=== PATIENT | female | born 1945 | race Caucasian/White ===

== ENCOUNTER 2024-02-17 22:21 | Inpatient (IN) | payer MEDICARE, SELFPAY ==
--- NOTE | ~2024-02-17 | XR_ITS ---
EXAMINATION: XR HUMERUS, LEFT XR FOREARM, LEFT CLINICAL INFORMATION: Fall. COMPARISON: None TECHNIQUE: AP and lateral views of the left humerus. AP and lateral views of the left forearm. Images are somewhat limited due to the inability of the patient to move the arm. FINDINGS: No acute fracture or malalignment is identified at the humerus. Fracture dislocation is evident at the elbow joint with fractures of both the radius and ulna. Distal humerus appears intact. Proximal humerus is normal. Mild glenohumeral and acromioclavicular osteoarthritis. As seen on the forearm images, there is a dislocation at the elbow with proximal displacement of the radial head and ulna relative to the distal humerus. Ossific fragments at the joint likely arises from the ulna and the radial head. Soft tissues are swollen. XR/XR forearm LT 2V IMPRESSION: Fracture dislocation at the elbow joint with proximal displacement of the radial head and ulna relative to the distal humerus.
--- NOTE | ~2024-02-17 | XR_ITS ---
EXAMINATION: XR ELBOW, LEFT CLINICAL INFORMATION: Post reduction COMPARISON: Prior radiographs from 02/17/2024. CT images from 02/18/2024. TECHNIQUE: Lateral view of the left elbow. XR/XR elbow LT 2V FINDINGS AND IMPRESSION: There is a severely comminuted, displaced fracture of the lateral epicondyle with involvement of the capitellum. There was posterolateral displacement of the radius and ulna on the recent CT imaging exam from 02/18/2024 at 8:18 AM. This follow-up lateral view now demonstrate anterior dislocation of the radius and ulna at the unstable elbow. The ossific fragment that projects anterior to the radial head is probably a capitellar fragment. Soft tissues are swollen around the elbow.
--- NOTE | ~2024-02-17 | CT_ITS ---
EXAMINATION: CT head/brain wo IV con CT cervical spine wo IV con INDICATION INFORMATION: fall with head strike COMPARISON: None TECHNIQUE: Separate noncontrast CT examinations of the head and cervical spine were performed. Coronal and sagittal reformats were obtained at the acquisition workstation. This CT examination was performed using dose optimization techniques as appropriate, variously including the following: * Automated exposure control * Adjustment of mA and/or kV according to patient size (this includes techniques or standardized protocols for targeted exams where dose is matched to indication/reason for exam; i.e. extremities or head) * Use of iterative reconstruction technique DLP: 637 mGy-cm FINDINGS: HEAD: There is no evidence of acute intracranial hemorrhage or territorial infarction. Hanson to white matter differentiation is well preserved. No abnormal mass effect or midline shift is seen. No extra-axial fluid collections are identified. No hydrocephalus. Proportional prominence of the ventricles and sulcal spaces is consistent with moderate volume loss. Patchy periventricular and deep white matter hypoattenuation is consistent with moderate small vessel ischemic changes. The cerebellar tonsils are well positioned. No acute osseous or soft tissue abnormality. Mild hyperostosis frontalis interna. Visualized portions of the orbits are unremarkable. Dependent fluid layer in the left maxillary sinus. Small retention cyst in the left ethmoid air cells. Otherwise the remaining visualized paranasal sinuses and mastoid air cells are well-aerated. Small volume cerumen in the right external auditory canal. CERVICAL SPINE: No evidence of acute fracture or traumatic subluxation of the cervical spine. There is straightening of the normal cervical curvature. Mild anterolisthesis of C2 on C3. Vertebral body heights are maintained. There is multilevel intervertebral disc space narrowing with endplate osteophyte formation and facet arthropathy. The atlantoaxial and atlantooccipital articulations are intact. No prevertebral soft tissue swelling. There is no cervical lymphadenopathy. The visualized thyroid gland is unremarkable. The visualized lung apices are clear. CT/CT cervical spine wo IV con IMPRESSION: 1. No acute intracranial pathology. Moderate chronic changes of ischemic microangiopathy and generalized volume loss. 2. No acute osseous abnormality within the cervical spine. Moderate multilevel cervical spondylosis.
--- NOTE | ~2024-02-17 | FL_ITS ---
EXAMINATION: XR FLUOROSCOPY WITH IMAGES CLINICAL INFORMATION: ORIF left elbow; radial and lateral epicondyle fracture/dislocations. COMPARISON: CT elbow dated 02/19/2024; left elbow radiographs dated 02/18/2024. TECHNIQUE: Fluoroscopy Supervised By: Dr. Angel Marcus. Fluoroscopy Time: 0.3. Cumulative Dose: 0.646 mGy. DAP: 0.0112 Gycm2. Images: 5. FINDINGS: The submitted images show application of 2 fixator screws transfixing the dominant fracture of the right capitellum. FL/FL guidance in OR IMPRESSION: Intraoperative fluoroscopic guidance is provided during ORIF of a left elbow fracture/dislocation. Please see the patient's Operative Report for full procedural details.
--- NOTE | ~2024-02-17 | XR_ITS ---
EXAMINATION: XR HUMERUS, LEFT XR FOREARM, LEFT CLINICAL INFORMATION: Fall. COMPARISON: None TECHNIQUE: AP and lateral views of the left humerus. AP and lateral views of the left forearm. Images are somewhat limited due to the inability of the patient to move the arm. FINDINGS: No acute fracture or malalignment is identified at the humerus. Fracture dislocation is evident at the elbow joint with fractures of both the radius and ulna. Distal humerus appears intact. Proximal humerus is normal. Mild glenohumeral and acromioclavicular osteoarthritis. As seen on the forearm images, there is a dislocation at the elbow with proximal displacement of the radial head and ulna relative to the distal humerus. Ossific fragments at the joint likely arises from the ulna and the radial head. Soft tissues are swollen. XR/XR humerus LT IMPRESSION: Fracture dislocation at the elbow joint with proximal displacement of the radial head and ulna relative to the distal humerus.
--- NOTE | ~2024-02-17 | CT_ITS ---
EXAMINATION: CT of the left forearm without contrast INDICATION: Proximal radial fx/dislocation COMPARISON: Radiographs dated 02/17/2024 TECHNIQUE: Multidetector volumetric imaging was obtained through the left elbow without contrast. Multiplanar reformatted images in coronal and sagittal orientations were submitted. This CT examination was performed using dose optimization techniques as appropriate, variously including the following: *Automated exposure control *Adjustment of mA and/or kV according to patient size (this includes techniques or standardized protocols for targeted exams where dose is matched to indication/reason for exam; i.e. extremities or head) *Use of iterative reconstruction technique DLP: 134.12 mGy-cm FINDINGS: The radius and ulna are laterally and proximally dislocated at the elbow. The medial margin of the ulna is impacted into a comminuted fracture at the lateral epicondyles of the distal humerus with marked epicondylar fragmentation. The proximal ulna is largely intact, though a small fracture is possible near the sublime tubercle of the coracoid process which is impacted into the distal humeral fracture. An osseous fragment from the anterolateral margin of the radial head is displaced anteromedially and rotated. This fragment measures 1.7 x 0.9 x 0.9 cm. The proximal radius and proximal ulna remain appropriately aligned relative to each other. Soft tissues are swollen with significant subcutaneous edema. The distal radius and distal ulna appear intact. No appreciable fractures at the level of the wrist. CT/CT forearm LT wo IV con IMPRESSION: Proximal and lateral dislocation of the radius and ulna at the elbow with a comminuted fracture of the lateral epicondyle of the distal humerus and a displaced fracture of the radial head. Possible small fracture at the sublime tubercle of the coracoid process.
--- NOTE | ~2024-02-17 | CT_ITS ---
EXAMINATION: CT of the left elbow without contrast INDICATION: Reason for Exam left elbow fx COMPARISON: CT dated 03-11 TECHNIQUE: Multidetector volumetric imaging was obtained to the left elbow without contrast. Multiplanar reformatted images in coronal and sagittal orientations were submitted. This CT examination was performed using dose optimization techniques as appropriate, variously including the following: *Automated exposure control *Adjustment of mA and/or kV according to patient size (this includes techniques or standardized protocols for targeted exams where dose is matched to indication/reason for exam; i.e. extremities or head) *Use of iterative reconstruction technique DLP: 72 mGy-cm FINDINGS: The radius and ulna remain laterally and proximally dislocated at the elbow. The medial margin of the ulna is impacted into a comminuted fracture at the lateral epicondyle of the distal humerus with marked epicondylar fragmentation. The proximal ulna is largely intact, though a small fracture of the coronoid process remains possible where it is impacted into the humerus. An osseous fragment from the anterolateral margin of the radial head remains displaced anteromedially and rotated. The proximal radius and proximal ulna remain appropriately aligned relative to each other. Soft tissues are swollen with significant subcutaneous edema. The distal radius and distal ulna appear intact. No appreciable fractures at the level of the wrist. CT/CT elbow LT wo IV con IMPRESSION: Unchanged proximal and lateral dislocation of the radius and ulna at the elbow with comminution of the lateral epicondyle of the distal humerus and a displaced fracture of the radial head.
[2024-02-17 22:31] VITALS: BP 160/80; PULSE 58; O2SAT 100
[2024-02-17 22:39] VITALS: BP 161/69; PULSE 67; RESP 16; TEMP 36.6; BMI 26.2
--- NOTE | 2024-02-17 22:43 | ECG_ITS ---
Test Reason : FALL Blood Pressure : / mmHG Vent. Rate : 065 BPM Atrial Rate : 065 BPM P-R Int : 138 ms QRS Dur : 086 ms QT Int : 422 ms P-R-T Axes : 058 -49 041 degrees QTc Int : 438 ms Normal sinus rhythm Left axis deviation Abnormal ECG No previous ECGs available Referred By: Generic ED Physician Electronically Signed By:TOM PLATT
[2024-02-17 22:57] LABS: Glucose, Whole Blood 164 mg/dL (60-115)
--- NOTE | 2024-02-17 23:00 | PC.NURSE ---
care assumed of patient by this RN at this time.
[2024-02-18] VITALS (16 sets, daily range): BP systolic 116–158; BP diastolic 50–85; PULSE 61–83; RESP 14–20; TEMP 36.8–37.7; O2SAT 94–99
[2024-02-18 00:22] LABS: MANUAL DIFF FLAG NO
[2024-02-18 00:26] LABS: Basophils Absolute Auto 0.1 X10*3/uL (0.0-0.2); Basophils Percent Auto 0.3 % (0-2); Eosinophils Absolute Auto 0.1 X10*3/uL (0.0-0.4); Eosinophils Percent Auto 0.8 % (0-4); Hematocrit 42.5 % (37.0-47.0); Hemoglobin 14.6 g/dl (12.0-16.0); Imm Gran Abs Auto 0.05 X10*3/uL (0.00-0.03); Imm Gran Pct Auto 0.3 % (0.0-0.4); Lymphocytes Absolute Auto 1.5 X10*3/uL (1.2-4.9); Lymphocytes Percent Auto 10.7 % (20-40); Mean Corpuscular HGB Conc 34.4 g/dl (31.0-35.0); Mean Corpuscular Hemoglobin 30.7 pg (27.0-33.0); Mean Corpuscular Volume 89.3 fL (80.0-98.0); Monocytes Percent Auto 6.9 % (2-11); Neutrophils Absolute Auto 11.7 x10*3/uL (2.0-8.3); Platelet Count 217 X10*3/uL (160-400); Red Blood Count 4.76 X10*6/uL (4.20-5.50); Red Cell Distribution Width 11.9 % (11.0-16.0); White Blood Count 14.4 X10*3/uL (4.8-10.8)
[2024-02-18 00:48] LABS: Anion Gap 17 (12-20); Blood Urea Nitrogen 21 mg/dL (9-16); Calcium 9.9 mg/dL (8.4-10.2); Carbon Dioxide 23 mmol/L (22-29); Chloride 102 mmol/L (96-108); Creatinine Clr Calc Pharmacy 40.1; Estimated Glomerular Filt Rate 53; Glucose Random 190 mg/dL (60-115); Potassium 4.1 mmol/L (3.3-5.1); Sodium 138 mmol/L (135-145)
[2024-02-18 00:56] LABS: Troponin-I High Sensitivity < 2.7 ng/L (<3.5-17.0)
[2024-02-18 07:45] LABS: Alanine Aminotransferase 14 U/L (0-31); Albumin Level 4.3 g/dL (3.5-5.0); Alkaline Phosphatase 71 U/L (39-117); Aspartate Amino Transferase 16 U/L (5-31); Bilirubin Direct 0.2 mg/dL (0.0-0.5); Bilirubin Total 0.5 mg/dL (0.0-1.0); Total Protein 7.1 g/dL (6.5-8.0)
--- NOTE | 2024-02-18 08:01 | ED_ITS ---
HPI - General Adult General Chief complaint: Fall Stated complaint: found outside, COA x2, baseline dementia Time Seen by Provider: 02/18/24 06:42 Source: patient and family Mode of arrival: EMS Limitations: no limitations History of Present Illness HPI narrative: Patient is an 79-year-old female who presents emergency department via EMS for evaluation. Syed's outside of her home called EMS as she was found to be lying on the ground. Unknown down time. Daughter is at bedside; Rachel. She reports that patient lives alone, she saw her mother at approximately 17:00 yesterday evening. She has a history of dementia but has been living alone and typically Fares pretty well with some minor assistance for ADLs. She does admit that her confusion has been slowly progressing over some time, denies sudden increase in confusion. Upon EMS arrival to patient she was unable to provide any meaningful history but she was complaining of pain to the left arm. At the time of my evaluation she denies any pain when asked, she is oriented to person disoriented to place time and event, she is able to follow some commands, after asked 2-3 times. Related Data Home Medications ?Medication ?Instructions ?Recorded ?Confirmed atorvastatin 20 mg tablet 20 mg PO DAILY 02/18/24 ciclopirox 0.77 % topical cream 1 appl topical BID 02/18/24 donepezil 10 mg tablet 10 mg PO BEDTIME 02/18/24 loratadine 10 mg tablet 10 mg PO DAILY 02/18/24 memantine 21 mg capsule 21 mg PO DAILY 02/18/24 sprinkle,extended release 24hr metformin 500 mg tablet,extended 1,500 mg PO DAILY@1800 02/18/24 release 24 hr multivitamin 1 tab PO DAILY 02/18/24 valsartan 80 mg tablet 80 mg PO DAILY 02/18/24 Allergies Allergy/AdvReac Type Severity Reaction Status Date / Time No Known Allergies Allergy Verified 02/17/24 22:42 Review of Systems 2 Review of Systems: Yes Unobtainable due to mental status PMFSH Past Medical History Attestation statement: The following information was validated with the patient. Source: old records reviewed Social History Social History Smoked in Last 30 Days: No Use of substances other than those prescribed or required for medical reasons: No Advance Directives: Yes Advance Directives on File: Yes Advance Directives Date on File: 02/17/24 Do you have a plan to hurt others: No Plan Physical Exam ED Vital Signs: Vital Signs - 24 hr 02/17/24 22:39 02/18/24 02:21 02/18/24 06:23 Temperature 97.9 F 99.0 F 98.4 F Pulse Rate 67 83 74 Respiratory Rate 16 16 17 Blood Pressure 161/69 H 151/61 H 140/51 H Pulse Oximetry 98 97 Oxygen Delivery Method Room Air Room Air 02/18/24 08:22 02/18/24 08:22 02/18/24 10:11 Temperature 98.3 F 98.3 F Pulse Rate 69 67 Respiratory Rate 20 20 14 Blood Pressure 134/58 L 134/58 L Pulse Oximetry 94 Oxygen Delivery Method Room Air 02/18/24 10:14 02/18/24 11:15 02/18/24 12:38 Temperature Pulse Rate 71 74 Respiratory Rate 14 14 18 Blood Pressure 155/58 H 156/65 H Pulse Oximetry 99 95 Oxygen Delivery Method Room Air Room Air 02/18/24 13:23 02/18/24 13:34 02/18/24 13:40 Temperature 98.7 F 98.7 F Pulse Rate 69 64 83 Respiratory Rate 16 18 16 Blood Pressure 146/55 H 158/67 H 153/59 H Pulse Oximetry 95 98 96 Oxygen Delivery Method 02/18/24 13:56 02/18/24 13:59 02/18/24 14:00 Temperature 98.3 F 98.3 F Pulse Rate 70 61 61 Respiratory Rate 16 18 18 Blood Pressure 158/67 H 145/57 H 145/57 H Pulse Oximetry 94 95 95 Oxygen Delivery Method Room Air 02/18/24 15:18 Temperature Pulse Rate 61 Respiratory Rate 18 Blood Pressure 133/53 L Pulse Oximetry 97 Oxygen Delivery Method Room Air BMI result Body Mass Index 26.2 Appearance: Alert.?Oriented to person, disoriented to place and time. No acute distress.?Normal affect. Head: Normocephalic Eyes: Pupils equal, round and reactive to light.? EOMI. No nystagmus. Left medial periorbital ecchymosis no palpable step-offs or deformities of the orbit. ENT: Pharynx normal.??No fracture or loose dentition. Ecchymosis and swelling to the left lower lip Neck: Normal inspection.? Neck supple.?? CVS: Heart sounds normal. Normal heart rate and rhythm.? Pulses normal.?? Respiratory: No respiratory distress.? Lung sounds clear to auscultation bilaterally?? Abdomen: Soft and non-tender. Normoactive bowel sounds. No pulsatile mass.?? Skin: Skin warm and dry.? Normal skin color.? Erythema and warmth to the right forearm without open wounds lesion or rash. Nontender upon palpation. Extremities: No lower extremity edema.? Ecchymosis to left elbow. 2+ radial pulse bilaterally. Neuro: Moves all extremities spontaneously. Sensation intact bilaterally. No focal neuro deficits. Course Reevaluation(s) Reevaluation #1: Patient unable to tolerate manual reduction despite pain management. Reviewed this case with ED attending Dr. Stewart, feel that patient will require procedural sedation for reduction. He agrees with plan of care Time: 10:36 Reevaluation #2: Procedural sedation with propofol as per procedure note. Post reduction films were obtained which reveals an anterior dislocation of the radius and ulna. She was placed in a posterior splint and a sling was applied. Reviewed the post procedural films with Dr. Stewart, who recommends admission for further orthopedic intervention, spoke with hospitalist service Delon Boss PA to bedside for admission of patient, pending orthopedic surgical intervention. Family at bedside updated on plan of care and are agreeable for admission. Medications Administered Discontinued Medications Generic Name Dose Route Start Last Admin Trade Name Freq PRN Reason Stop Dose Admin Morphine Sulfate 4 mg 02/18/24 10:02 02/18/24 10:11 Morphine Sulfate 4 Mg/Ml Cartridge IM 02/18/24 10:03 4 mg ONCE ONE Administration Protocol Propofol 100 mg 02/18/24 10:34 02/18/24 13:25 Propofol 200 Mg/20 Ml Vial IVPUSH 02/18/24 10:35 50 mg ONCE ONE Administration Procedures Orthopedic Fracture Reduction Fracture #1: Time Out Performed: Yes Side: left Fracture Reduction Location: humerus, radius and ulna Analgesia: procedural sedation Technique: direct manipulation and traction/counter-traction Post Reduction X-rays Demonstrate: anatomical reduction Post-reduction neuro exam: intact Post-reduction vascular exam: intact Splint Applied: Yes Patient Tolerated Procedure: well Orthopedic Joint Reduction Joint #1: Time Out Performed: Yes Side: left Joint Reduction Location: elbow Analgesia: procedural sedation Technique used: traction/counter-traction and direct manipulation Post-reduction neuro exam: intact Post-reduction vascular: intact Post Reduction X-Ray Obtained: Yes Post Reduction X-Ray Results: other (Anterior dislocation of the radius and ulna, reviewed case with orthopedics) Splint Applied: Yes (Posterior splint) Patient Tolerated Procedure: well Procedural Sedation Indication: fracture/dislocation reduction ASA Class: I Mallampati Class: I Time of Last PO Intake: 05:00 Preparation: hall monitor applied, pulse oximeter, capnometry used, supplemental O2 applied, suction/airway equipment at bedside and IV secured IV Propofol dose (mg): 50 Patient Tolerated Procedure: well Complications: none Medical Decision Making Medical Decision Making [facility] Narrative: Daughter reports it is atypical for her to wander out of the home and typically is quite steady on her feet. The etiology of her fall is unclear, ? Syncope versus mechanical nature. She is unable to provide meaningful history surrounding the events. EKG reveals normal sinus rhythm with ventricular rate of 65, QTC of 438, no ST elevation, no ST depression. CT of the head is without acute intracranial pathology, CT of the cervical spine without fracture subluxation. Initially citing left arm pain, noted to have ecchymosis to the elbow, extremity is neurovascularly intact distally, XR reveals fracture dislocation of the left elbow joint of the proximal radius and ulna with proximal displacement of the radial head, I reviewed these images with orthopedics; Benny GIVENS, who recommend reduction and obtaining a CT scan for further evaluation. Right forearm noted to have erythema and warmth no tenderness upon palpation, daughter reports that she noticed some mild redness yesterday, she stated she was unsure whether patient had been outside and possibly got a sunburn, she denies any recent lab draws or IV placement to the arm prior to noticing it. Concern for possible sun exposure versus cellulitis, full range of motion and no tenderness upon palpation, I do not suspect acute osseous abnormality. Differential Diagnosis Differential Diagnoses: The differential diagnosis associated with the presentation includes (Syncope, presyncope, mechanical fall, fracture, dislocation, ICH, SDH) Admission/Observation Consideration of admission/observation: Escalation of care including admission/observation considered Consult Healthcare Provider Management of the patient was discussed with: Dairy Grazer (Orthopedics, see narrative above) Lab Data [facility] Lab Attestation statement: I reviewed the patient's lab results. CBC reveals leukocytosis 14.4, no anemia, no thrombocytopenia. No electrolyte derangement. BUN is mildly elevated at 21, suspect this is likely secondary to mild dehydration in the setting of her dementia. Non-anion gap hyperglycemia glucose 190. High sensitive troponin below detectable limits. CK within normal range no evidence of rhabdo. 02/18/24 00:18 02/18/24 00:04 Labs: Lab Results 02/17/24 02/18/24 02/18/24 Range/Units 22:53 00:04 00:18 WBC 14.4 H (4.8-10.8) X10*3/uL RBC 4.76 (4.20-5.50) X10*6/uL Hgb 14.6 (12.0-16.0) g/dl Hct 42.5 (37.0-47.0) % MCV 89.3 (80.0-98.0) fL MCH 30.7 (27.0-33.0) pg MCHC 34.4 (31.0-35.0) g/dl RDW 11.9 (11.0-16.0) % Plt Count 217 (160-400) X10*3/uL MPV 9.0 L (9.4-12.3) fL Immature Gran % (Auto) 0.3 (0.0-0.4) % Neut % (Auto) 81.0 H (45-73) % Lymph % (Auto) 10.7 L (20-40) % Brooke % (Auto) 6.9 (2-11) % Eos % (Auto) 0.8 (0-4) % Baso % (Auto) 0.3 (0-2) % Lymph # (Auto) 1.5 (1.2-4.9) X10*3/uL Brooke # (Auto) 1.0 (0.1-1.2) X10*3/uL Eos # (Auto) 0.1 (0.0-0.4) X10*3/uL Baso # (Auto) 0.1 (0.0-0.2) X10*3/uL Abs Immat Gran (auto) 0.05 H (0.00-0.03) X10*3/uL Absolute Neuts (auto) 11.7 H (2.0-8.3) x10*3/uL Absolute Nucleated RBC 0.000 (0.0-0.012) X10*3/uL Nucleated RBC % (auto) 0.0 (0.0-0.2) /100WBC Sodium 138 (135-145) mmol/L Potassium 4.1 (3.3-5.1) mmol/L Chloride 102 (96-108) mmol/L Carbon Dioxide 23 (22-29) mmol/L Anion Gap 17 (12-20) BUN 21 H (9-16) mg/dL Creatinine 1.01 (0.5-1.4) mg/dL Estim Creat Clear Calc 40.1 Estimated GFR 53 POC Glucose 164 H (60-115) mg/dL Random Glucose 190 H (60-115) mg/dL Calcium 9.9 (8.4-10.2) mg/dL Total Bilirubin 0.5 (0.0-1.0) mg/dL Direct Bilirubin 0.2 (0.0-0.5) mg/dL AST 16 (5-31) U/L ALT 14 (0-31) U/L Alkaline Phosphatase 71 (39-117) U/L Total Creatine Kinase 78 (26-140) U/L Troponin I High Sens < 2.7 (<3.5-17.0) ng/L Total Protein 7.1 (6.5-8.0) g/dL Albumin 4.3 (3.5-5.0) g/dL Urine Color Urine Appearance Urine pH (5.0-9.0) Ur Specific Pelzer (1.005-1.025) Urine Protein (Neg-Trace) mg/dL Urine Glucose (UA) (Negative) mg/dL Urine Ketones (Negative) mg/dL Urine Blood (Negative) Urine Nitrite (Negative) Ur Leukocyte Esterase (Negative) Urine RBC (0-2) /HPF Urine WBC (0-5) /HPF Ur Squamous Epith Cells (0-2) /HPF Urine Bacteria (None Seen) Hyaline Casts (0-2) /LPF 02/18/24 Range/Units 15:13 WBC (4.8-10.8) X10*3/uL RBC (4.20-5.50) X10*6/uL Hgb (12.0-16.0) g/dl Hct (37.0-47.0) % MCV (80.0-98.0) fL MCH (27.0-33.0) pg MCHC (31.0-35.0) g/dl RDW (11.0-16.0) % Plt Count (160-400) X10*3/uL MPV (9.4-12.3) fL Immature Gran % (Auto) (0.0-0.4) % Neut % (Auto) (45-73) % Lymph % (Auto) (20-40) % Brooke % (Auto) (2-11) % Eos % (Auto) (0-4) % Baso % (Auto) (0-2) % Lymph # (Auto) (1.2-4.9) X10*3/uL Brooke # (Auto) (0.1-1.2) X10*3/uL Eos # (Auto) (0.0-0.4) X10*3/uL Baso # (Auto) (0.0-0.2) X10*3/uL Abs Immat Gran (auto) (0.00-0.03) X10*3/uL Absolute Neuts (auto) (2.0-8.3) x10*3/uL Absolute Nucleated RBC (0.0-0.012) X10*3/uL Nucleated RBC % (auto) (0.0-0.2) /100WBC Sodium (135-145) mmol/L Potassium (3.3-5.1) mmol/L Chloride (96-108) mmol/L Carbon Dioxide (22-29) mmol/L Anion Gap (12-20) BUN (9-16) mg/dL Creatinine (0.5-1.4) mg/dL Estim Creat Clear Calc Estimated GFR POC Glucose (60-115) mg/dL Random Glucose (60-115) mg/dL Calcium (8.4-10.2) mg/dL Total Bilirubin (0.0-1.0) mg/dL Direct Bilirubin (0.0-0.5) mg/dL AST (5-31) U/L ALT (0-31) U/L Alkaline Phosphatase (39-117) U/L Total Creatine Kinase (26-140) U/L Troponin I High Sens (<3.5-17.0) ng/L Total Protein (6.5-8.0) g/dL Albumin (3.5-5.0) g/dL Urine Color Yellow Urine Appearance Clear Urine pH 7.0 (5.0-9.0) Ur Specific Pelzer 1.015 (1.005-1.025) Urine Protein Negative (Neg-Trace) mg/dL Urine Glucose (UA) Negative (Negative) mg/dL Urine Ketones Negative (Negative) mg/dL Urine Blood Negative (Negative) Urine Nitrite Negative (Negative) Ur Leukocyte Esterase Small (1+) H (Negative) Urine RBC 0-2 (0-2) /HPF Urine WBC 0-5 (0-5) /HPF Ur Squamous Epith Cells 0-2 (0-2) /HPF Urine Bacteria None Seen (None Seen) Hyaline Casts 0-2 (0-2) /LPF Independent Interpretation I performed an independent interpretation of an: EKG (See narrative above), Plain X-Ray (Proximal radial fracture) and CT Scan (No ICH) Radiology Impression Discussion of test interpretation with radiology: I have reviewed the radiologist's reading. Radiologist Impression: CT/CT head/brain wo IV con IMPRESSION: 1. No acute intracranial pathology. Moderate chronic changes of ischemic microangiopathy and generalized volume loss. 2. No acute osseous abnormality within the cervical spine. Moderate multilevel cervical spondylosis. XR/XR forearm LT 2V IMPRESSION: Fracture dislocation at the elbow joint with proximal displacement of the radial head and ulna relative to the distal humerus. CT/CT forearm LT wo IV con IMPRESSION: Proximal and lateral dislocation of the radius and ulna at the elbow with a comminuted fracture of the lateral epicondyle of the distal humerus and a displaced fracture of the radial head. Possible small fracture at the sublime tubercle of the coracoid process. XR/XR elbow LT 2V FINDINGS AND IMPRESSION: There is a severely comminuted, displaced fracture of the lateral epicondyle with involvement of the capitellum. There was posterolateral displacement of the radius and ulna on the recent CT imaging exam from 02/18/2024 at 8:18 AM. This follow-up lateral view now demonstrate anterior dislocation of the radius and ulna at the unstable elbow. The ossific fragment that projects anterior to the radial head is probably a capitellar fragment. Soft tissues are swollen around the elbow. Independent Historian Clinical information obtained from an independent historian. History obtained from or confirmed by: Other (Daughter as per HPI) Prescription Management I considered prescription management with: Pain Medication Critical Care Time Critical Care Time Critical Care Time: Yes Total Critical Care Time: 75 Attestation: I personally attest to this critical care time spent taking care of the patient exclusive of all other billable procedures was approximately 75 minutes including initial evaluation of patient, ordering tests, x-ray interpretation, EKG interpretation, procedural sedation and fracture/dislocation reduction medical consultation, documentation, re-evaluation. Discharge Plan Discharge Clinical Impression: Elbow fracture, left, Dementia, Unwitnessed fall Patient Disposition: Admitted As Inpatient
[2024-02-18] MEDS: Morphine Sulfate 4 MG/ML CARTRIDGE IM (10:11)
--- NOTE | 2024-02-18 10:14 | PC.NURSE ---
pt sleeping, awakens easily to verbal stimuli. left arm pain w/ slight movement. patient premedicated w/ IM morphine as ordered prior to left arm fx splint placement by PROGRESSIVE CARE NURSE
--- NOTE | 2024-02-18 13:18 | MHC.EDTECH ---
This pct attempted ortho static vitals on patient, The nurse responsible for this patient said patient is in alot of pain and unable to complete orthos at this time, will attempt at later time. Provider aware.
[2024-02-18] MEDS: propofoL 200 MG/20 ML VIAL 100 MG IVPUSH (13:25)
[2024-02-18 15:25] LABS: Appearance Urine Clear; Color Urine Yellow; Glucose Urine UA Negative (Negative); Leukocyte Esterase Urine Small (1+) (Negative); Nitrite Urine Negative (Negative); Specific Gravity - Urine 1.015 (1.005-1.025); UMIC TRIGGER UACC YES; Urine Blood Negative (Negative); Urine Ketones Negative (Negative); Urine Protein Negative (Neg-Trace)
--- NOTE | 2024-02-18 15:30 | P.HPHOSP_ITS ---
<Statement entered by Yvan Smith MD - 02/19/24 14:20> the patient was seen and evaluated with CHON Kitchen. I agree with her note, assessment and plan with the following. History of Present Illness Date of Service: 02/18/24 Attending physician on admission: Yvan Smith Chief Complaint: fall This is an 79-year-old female with history of dementia who was brought to the emergency department after being found outside of her home on the ground. History was primarily obtained from her son at the bedside. Patient was last seen around 17:00 on the day prior to admission. Around 930 in the morning on the day of admission family got a phone call by the police at 09:30 saying that she was found on the ground. She is unable to provide any history due to her history of dementia. In the emergency department she was noted to have abnormality of her left arm, imaging was consistent with proximal and lateral dislocation of the radius and ulna at the elbow with comminuted fracture of the lateral epicondyle of the distal humerus and a displaced fracture of the radial head. This was reduced in the emergency department. Orthopedic surgery recommends surgical intervention in the coming days. Per family patient has been in her usual state of health, eating and drinking okay. She lives alone but is dependent for all of her ADLs. The patient has no specific complaints at this time. She received a dose of IV morphine for pain control and will be admitted to the hospital for further management. Review of Systems 2 Review of Systems: Yes all other systems are reviewed and are negative Constitutional: Constitutional: Denies chills and Denies fever(s) ENT: Denies dizziness Cardiovascular: Cardiovascular: Denies chest pain Gastrointestinal: Gastrointestinal: Denies abdominal pain Neurologic: Denies dizziness PMF Social History Smoked in Last 30 Days: No Use of substances other than those prescribed or required for medical reasons: No Advance Directives: Yes Advance Directives on File: Yes Advance Directives Date on File: 02/17/24 Do you have a plan to hurt others: No Plan Meds Allergies Allergy/AdvReac Type Severity Reaction Status Date / Time No Known Allergies Allergy Verified 02/17/24 22:42 Active Medications: Current Medications Acetaminophen (Acetaminophen 325 Mg Tablet) 650 mg PO Q6H PRN PRN Reason: Pain, Mild (Pain Scale 1-3) Ondansetron HCl (Ondansetron Hcl 4 Mg/2 Ml Vial) 4 mg IVPUSH Q8H PRN PRN Reason: Nausea and Vomiting Oxycodone HCl (Oxycodone Hcl Immed Release 5 Mg Tablet) 5 mg PO Q6H PRN PRN Reason: Pain, Moderate(Pain Scale 4-6) Sodium Chloride (0.9 % Sodium Chloride Flush 3 Ml Syringe) [facility]ations ?Medication ?Instructions ?Recorded ?Confirmed ?Last Taken ?Type atorvastatin 20 mg tablet 20 mg PO DAILY 02/18/24 Unknown History ciclopirox 0.77 % topical cream 1 appl topical BID 02/18/24 Unknown History donepezil 10 mg tablet 10 mg PO BEDTIME 02/18/24 Unknown History loratadine 10 mg tablet 10 mg PO DAILY 02/18/24 Unknown History memantine 21 mg capsule 21 mg PO DAILY 02/18/24 Unknown History sprinkle,extended release 24hr metformin 500 mg tablet,extended 1,500 mg PO DAILY@1800 02/18/24 Unknown History release 24 hr multivitamin 1 tab PO DAILY 02/18/24 Unknown History valsartan 80 mg tablet 80 mg PO DAILY 02/18/24 Unknown History Physical Exam 2 Vital Signs and Narrative: Vital Signs: Last Vital Signs Temp 98.3 F 02/18/24 14:00 Pulse 61 02/18/24 15:18 Resp 18 02/18/24 15:18 BP 133/53 L 02/18/24 15:18 Pulse Ox 97 02/18/24 15:18 O2 Del Method Room Air 02/18/24 15:18 BMI result Body Mass Index 26.2 Const: Other: Constitutional-patient observed sitting up in bed, she is awake, alert and in no acute distress. She is oriented to person only (this is her baseline per her son) Cardiovascular regular rate and rhythm Pulmonary-breathing easy no respiratory distress, no accessory muscle use GI abdomen is soft, nontender, nondistended Musculoskeletal-left upper extremity in cast and sling; able to move bilateral lower extremities and right upper extremity freely Neuro-cranial nerves 2-12 are grossly intact there are no focal neurological deficits appreciated Results Labs 02/18/24 00:18 02/18/24 00:04 Labs: Laboratory Results - last 24 hr 02/17/24 02/18/24 02/18/24 22:53 00:04 00:18 MCV 89.3 MCH 30.7 MCHC 34.4 RDW 11.9 Plt Count 217 MPV 9.0 L Immature Gran % (Auto) 0.3 Neut % (Auto) 81.0 H Lymph % (Auto) 10.7 L [place] % (Auto) 6.9 Eos % (Auto) 0.8 Baso % (Auto) 0.3 Lymph # (Auto) 1.5 [place] # (Auto) 1.0 Eos # (Auto) 0.1 Baso # (Auto) 0.1 Abs Immat Gran (auto) 0.05 H Absolute Neuts (auto) 11.7 H Absolute Nucleated RBC 0.000 Nucleated RBC % (auto) 0.0 Anion Gap 17 Estim Creat Clear Calc 40.1 Estimated GFR 53 POC Glucose 164 H Random Glucose 190 H Calcium 9.9 Total Bilirubin 0.5 Direct Bilirubin 0.2 AST 16 ALT 14 Alkaline Phosphatase 71 Total Creatine Kinase 78 Troponin I High Sens < 2.7 Total Protein 7.1 Albumin 4.3 Urine Color Urine Appearance Urine pH Ur Specific [place] Urine Protein Urine Glucose (UA) Urine Ketones Urine Blood Urine Nitrite Ur Leukocyte Esterase 02/18/24 15:13 MCV MCH MCHC RDW Plt Count MPV Immature Gran % (Auto) Neut % (Auto) Lymph % (Auto) [place] % (Auto) Eos % (Auto) Baso % (Auto) Lymph # (Auto) [place] # (Auto) Eos # (Auto) Baso # (Auto) Abs Immat Gran (auto) Absolute Neuts (auto) Absolute Nucleated RBC Nucleated RBC % (auto) Anion Gap Estim Creat Clear Calc Estimated GFR POC Glucose Random Glucose Calcium Total Bilirubin Direct Bilirubin AST ALT Alkaline Phosphatase Total Creatine Kinase Troponin I High Sens Total Protein Albumin Urine Color Yellow Urine Appearance Clear Urine pH 7.0 Ur Specific [place] 1.015 Urine Protein Negative Urine Glucose (UA) Negative Urine Ketones Negative Urine Blood Negative Urine Nitrite Negative Ur Leukocyte Esterase Small (1+) H Imaging Radiologist's Impressions: Impressions Forearm X-Ray 02/17/24 23:08 IMPRESSION: Fracture dislocation at the elbow joint with proximal displacement of the radial head and ulna relative to the distal humerus. Humerus X-Ray 02/17/24 23:08 IMPRESSION: Fracture dislocation at the elbow joint with proximal displacement of the radial head and ulna relative to the distal humerus. Cervical Spine CT 02/17/24 23:45 IMPRESSION: 1. No acute intracranial pathology. Moderate chronic changes of ischemic microangiopathy and generalized volume loss. 2. No acute osseous abnormality within the cervical spine. Moderate multilevel cervical spondylosis. Head CT 02/17/24 23:45 IMPRESSION: 1. No acute intracranial pathology. Moderate chronic changes of ischemic microangiopathy and generalized volume loss. 2. No acute osseous abnormality within the cervical spine. Moderate multilevel cervical spondylosis. Forearm CT 02/18/24 08:40 IMPRESSION: Proximal and lateral dislocation of the radius and ulna at the elbow with a comminuted fracture of the lateral epicondyle of the distal humerus and a displaced fracture of the radial head. Possible small fracture at the sublime tubercle of the coracoid process. Elbow X-Ray 02/18/24 13:40 FINDINGS AND IMPRESSION: There is a severely comminuted, displaced fracture of the lateral epicondyle with involvement of the capitellum. There was posterolateral displacement of the radius and ulna on the recent CT imaging exam from 02/18/2024 at 8:18 AM. This follow-up lateral view now demonstrate anterior dislocation of the radius and ulna at the unstable elbow. The ossific fragment that projects anterior to the radial head is probably a capitellar fragment. Soft tissues are swollen around the elbow. Assessment and Plan (1) Dementia: Status: Acute (2) Unwitnessed fall: Status: Acute Plan This is an 79-year-old female with history of Alzheimer's dementia, diabetes, high blood pressure, cholesterol who was brought to the emergency department after she was found outside her home lying on the ground and found to have proximal and lateral dislocation of the radius and ulna at the elbow with a comminuted fracture of the lateral epicondyle of the distal humerus and displaced fracture of the radial head Left elbow fracture Reduced in the ED Will need surgery, likely on Monday or Monday Orthopedic consult Pain management; bowel regimen Unwitnessed fall Likely mechanical but can not rule out syncope Will monitor on telemetry Leukocytosis Likely reactive secondary to fracture/fall Patient afebrile, no evidence of infection Type 2 diabetes Hold metformin Diabetic diet Follow POCs, insulin sliding scale as needed Hypertension Continue valsartan when med rec done HLD continue statin when med rec done Alzheimer's dementia continue donepezil memantine unclear if patient still taking awaiting clarification from family med rec pending at the time of admission DVT prophylaxis-as surgery is not planned for few days will start subcutaneous Lovenox Code status-DNR/DNI per family at the bedside Disposition-likely rehab. Will need PT evaluation after surgery Patient will likely require 2 midnight in the hospital due to fall, syncope evaluation, specialist evaluation and surgery for complex fracture Quality Stroke Does the patient have a stroke diagnosis?: No VTE Prior VTE?: No VTE Risk Level:: Medical - moderate - high VTE Device Contraindication: N/A - Device Ordered VTE Drug Contraindication: N/A - Med Ordered
[2024-02-18 15:40] LABS: Bacteria Urine None Seen (None Seen); Hyaline Casts Urine 0-2 /LPF (0-2); RBC Urine 0-2 /HPF (0-2); Squamous Epithelial Cell Urine 0-2 /HPF (0-2); UACC Culture Trigger YES; WBC Urine 0-5 /HPF (0-5)
--- NOTE | 2024-02-18 17:47 | PHA.MEDREC ---
Pharmacy Consult ? Medication Reconciliation Pharmacy has completed the medication reconciliation. MED REC COMPLETE USING LIST PROVIDED BY FAMILY AND CLAIM HISTORY. ATTEMPTED TO REACH FAMILY SEVERAL TIMES TO CLARIFY IF PATIENT IS ON CICLOPIROX CREAM (ON CLAIM HISTORY BUT NOT LIST) AND ALSO MEMANTINE (28 MG ON LIST AND 21 MG ON CLAIM HISTORY). LEFT MESSAGE WITH ASHLEY [phone].
[2024-02-18 17:51] LABS: Glucose, Whole Blood 195 mg/dL (60-115)
[2024-02-18] MEDS: Insulin Lispro 100 UNIT/ML 3 ML VIAL SUBCUT ×2 (18:29→21:25)
[2024-02-18] MEDS: Enoxaparin Sodium 40 MG/0.4 ML SYRINGE SUBCUT (18:29)
[2024-02-18] MEDS: 0.9 % Sodium Chloride Flush 3 ML SYRINGE IVFLUSH (18:31)
--- NOTE | 2024-02-18 19:35 | PC.NURSE ---
this rn assumed care of pt, pt sitting up in stretcher eating dinner. pt alert to self at this time, unable to say where she is or what year it is. pt able to state name and date of . vss.
[2024-02-18 21:19] LABS: Glucose, Whole Blood 267 mg/dL (60-115)
[2024-02-18] MEDS: Docusate Sodium 100 MG CAPSULE PO (21:25)
--- NOTE | 2024-02-18 21:34 | MHC.EDTECH ---
Pt cleaned, dried, repositioned, new pure wick in place, rn aware that pt was pulling on the wrap part of the cast
[2024-02-19 01:08] VITALS: BP 153/69; PULSE 80; RESP 18; TEMP 37; O2SAT 95
[2024-02-19] MEDS: 0.9 % Sodium Chloride Flush 3 ML SYRINGE IVFLUSH ×4 (01:15→21:47)
[2024-02-19 01:31] VITALS: BMI 26.6
[2024-02-19 07:23] LABS: Glucose, Whole Blood 175 mg/dL (60-115)
[2024-02-19 07:24] LABS: Hematocrit 43.7 % (37.0-47.0); Hemoglobin 14.7 g/dl (12.0-16.0); Mean Corpuscular HGB Conc 33.6 g/dl (31.0-35.0); Mean Corpuscular Hemoglobin 30.3 pg (27.0-33.0); Mean Corpuscular Volume 90.1 fL (80.0-98.0); Mean Platelet Volume 9.4 fL (9.4-12.3); Platelet Count 198 X10*3/uL (160-400); Red Blood Count 4.85 X10*6/uL (4.20-5.50); Red Cell Distribution Width 11.9 % (11.0-16.0); White Blood Count 9.2 X10*3/uL (4.8-10.8)
[2024-02-19 07:42] LABS: Anion Gap 13 (12-20); Blood Urea Nitrogen 12 mg/dL (9-16); Calcium 8.9 mg/dL (8.4-10.2); Carbon Dioxide 25 mmol/L (22-29); Chloride 104 mmol/L (96-108); Creatinine Clr Calc Pharmacy 50.4; Estimated Glomerular Filt Rate > 60; Glucose Random 184 mg/dL (60-115); Potassium 3.9 mmol/L (3.3-5.1); Sodium 138 mmol/L (135-145)
[2024-02-19 07:56] VITALS: BP 156/68; PULSE 100; RESP 20; TEMP 37.2; O2SAT 95
--- NOTE | 2024-02-19 08:08 | PM.CNOR ---
History of Present Illness HPI Consult date: 02/19/24 <Heather Longoria PA-C - Last Filed: 02/19/24 08:13> Chief complaint: Fall ?Syncope, left elbow fracture <Heather Longoria PA-C - Last Filed: 02/19/24 08:13> Narrative: 79-year-old female with history of dementia, admitted to the medical service after being found outside of her home on the ground and sustaining a left elbow fracture / dislocation. Per medicines note: History was primarily obtained from her son at the bedside in the ED. Patient was last seen around 17:00 on the day prior to admission. Around 930 in the morning on the day of admission family got a phone call by the police at 09:30 saying that she was found on the ground. She is unable to provide any history due to her history of dementia. In the emergency department she was noted to have abnormality of her left arm, imaging was consistent with proximal and lateral dislocation of the radius and ulna at the elbow with comminuted fracture of the lateral epicondyle of the distal humerus and a displaced fracture of the radial head. This was reduced in the emergency department. Per family patient lives alone but is dependent for all of her ADLs. Orthopedic surgery was consulted for surgical planning. <Heather Longoria PA-C - Last Filed: 02/19/24 08:13> Review of Systems Review of Systems: Yes all other systems are reviewed and are negative <Heather Longoria PA-C - Last Filed: 02/19/24 08:13> [facility] Social History Social History: Social History Household Members: Unknown / Unable to assess Housing: Unknown / Unable to assess Patient Tobacco Use Status: Never used Tobacco Smoked in Last 30 Days: No Use of substances other than those prescribed or required for medical reasons: No Currently Displaying Signs/Symptoms of Drug Intoxication Withdrawal: No Do you feel safe in your current relationship?: No Current Relationship Are you DNR?: Yes Advance Directives: Yes Advance Directives on File: Yes Advance Directives Date on File: 02/17/24 Do you have a plan to hurt others: No Plan Recently lost weight without trying: Unsure Eating poorly because of decreased appetite: No Nutrition Risks: No Nutritional Risk Patient : No Poor oral hygiene: No service: No <Heather Longoria PA-C - Last Filed: 02/19/24 08:13> Meds Allergies/Adverse reactions: Allergies Allergy/AdvReac Type Severity Reaction Status Date / Time No Known Allergies Allergy Verified 02/17/24 22:42 <Heather Longoria PA-C - Last Filed: 02/19/24 08:13> Active Medications: Current Medications Acetaminophen (Acetaminophen 325 Mg Tablet) 650 mg PO Q6H PRN PRN Reason: Pain, Mild (Pain Scale 1-3) Bisacodyl (Bisacodyl 10 Mg Supp.Rect) 10 mg MS BEDTIME PRN PRN Reason: Constipation Docusate Sodium (Docusate Sodium 100 Mg Capsule) 100 mg PO BID [facility] Last Admin: 02/18/24 21:25 Dose: 100 mg Enoxaparin Sodium (Enoxaparin Sodium 40 Mg/0.4 Ml Syringe) 40 mg SUBCUT Q24H [facility] Last Admin: 02/18/24 18:29 Dose: 40 mg Glucose (Glucose Gel 15 Gm Gel..Gram.) 15 gm PO Q15M PRN; Protocol PRN Reason: per Hypoglycemia Standing Ord. Dextrose (D10) 250 mls @ 750 mls/hr IV Q15M PRN; Protocol PRN Reason: per Hypoglycemia Standing Ord. Insulin Human Lispro (Insulin Lispro 100 Unit/Ml 3 Ml Vial) 0 unit SUBCUT QIDACHS [facility]; Protocol Last Admin: 02/18/24 21:25 Dose: 6 unit Morphine Sulfate (Morphine Sulfate 2 Mg/Ml Cartridge) 2 mg IVPUSH Q4H PRN; Protocol PRN Reason: Pain, Severe (Pain Scale 7-10) Ondansetron HCl (Ondansetron Hcl 4 Mg/2 Ml Vial) 4 mg IVPUSH Q8H PRN PRN Reason: Nausea and Vomiting Oxycodone HCl (Oxycodone Hcl Immed Release 5 Mg Tablet) 5 mg PO Q6H PRN PRN Reason: Pain, Moderate(Pain Scale 4-6) Polyethylene Glycol (Polyethylene Glycol 3350 17 Gm Powd.Pack) 17 gm PO DAILY [facility] Sodium Chloride (0.9 % Sodium Chloride Flush 3 Ml Syringe) 3 ml IVFLUSH QSHIFT [facility] Last Admin: 02/19/24 01:15 Dose: 3 ml <Heather Longoria PA-C - Last Filed: 02/19/24 08:13> Home medications: Home Medications ?Medication ?Instructions ?Recorded ?Confirmed ?Last Taken ?Type atorvastatin 20 mg tablet 20 mg PO DAILY 02/18/24 02/18/24 Unknown History ciclopirox 0.77 % topical cream 1 appl topical BID 02/18/24 02/18/24 Unknown History donepezil 10 mg tablet 10 mg PO BEDTIME 02/18/24 02/18/24 Unknown History loratadine 10 mg tablet 10 mg PO DAILY 02/18/24 02/18/24 Unknown History memantine 21 mg capsule 21 mg PO DAILY 02/18/24 02/18/24 Unknown History sprinkle,extended release 24hr metformin 500 mg tablet,extended 1,500 mg PO DAILY@1800 02/18/24 02/18/24 Unknown History release 24 hr multivitamin 1 tab PO DAILY 02/18/24 02/18/24 Unknown History valsartan 80 mg tablet 80 mg PO DAILY 02/18/24 02/18/24 Unknown History <VAIBHAV Vasquez Last Filed: 02/19/24 08:13> Physical Exam Vital Signs: Vital Signs: Last Vital Signs Temp 98.9 F 02/19/24 07:56 Pulse 100 02/19/24 07:56 Resp 20 02/19/24 07:56 BP 156/68 H 02/19/24 07:56 Pulse Ox 95 02/19/24 07:56 O2 Del Method Room Air 02/19/24 07:56 BMI result Body Mass Index 26.6 <Heather Longoria PA-C - Last Filed: 02/19/24 08:13> Const: General: cooperative, healthy appearing, comfortable, no acute distress, well developed and alert <VAIBHAV Vasquez Last Filed: 02/19/24 08:13> Orientation/consciousness: patient oriented x3 <Heather Longoria PA-C - Last Filed: 02/19/24 08:13> HEENT: Head: Yes normal to inspection, Yes normocephalic and Yes atraumatic <VAIBHAV Vasquez Last Filed: 02/19/24 08:13> Eyes: General: appearance normal, both eyes and all related structures <Heather Longoria PA-C - Last Filed: 02/19/24 08:13> Neck: Neck: Yes normal visual inspection and Yes no lymphadenopathy <Heather Longoria PA-C - Last Filed: 02/19/24 08:13> Resp: Effort & Inspection: normal respiratory effort and able to speak in complete sentences <Heather Longoria PA-C - Last Filed: 02/19/24 08:13> Cardio: Rate: regular rate <Heather Longoria PA-C - Last Filed: 02/19/24 08:13> Peripheral pulses: Peripheral pulses 2+ throughout <Heather Longoria PA-C - Last Filed: 02/19/24 08:13> GI: Inspection: Yes normal to inspection <Heather Longoria PA-C - Last Filed: 02/19/24 08:13> Palpation (GI): Soft to palpation <Heather Longoria PA-C - Last Filed: 02/19/24 08:13> Skin: General skin exam: no rashes or lesions noted <Heather Longoria PA-C - Last Filed: 02/19/24 08:13> Neuro: General: patient oriented x3 <Heather Longoria PA-C - Last Filed: 02/19/24 08:13> Extrem: Other: Left elbow in splint which is intact. She is able to move her fingers and cap refill intact. <Heather Longoria VAIBHAV - Last Filed: 02/19/24 08:13> Psych: Appearance: grossly normal <Heather Longoria VAIBHAV - Last Filed: 02/19/24 08:13> Mental Status: mental status grossly normal <Heather Longoria VAIBHAV - Last Filed: 02/19/24 08:13> Results Labs Result Diagrams: 02/19/24 06:52 02/19/24 06:52 <Heather Longoria VAIBHAV - Last Filed: 02/19/24 08:13> Labs: Abnormal lab results 02/17/24 02/18/24 02/18/24 Range/Units 22:53 15:13 17:44 POC Glucose 164 H 195 H (60-115) mg/dL Random Glucose (60-115) mg/dL Ur Leukocyte Esterase Small (1+) H (Negative) 02/18/24 02/19/24 02/19/24 Range/Units 21:12 06:52 07:13 POC Glucose 267 H 175 H (60-115) mg/dL Random Glucose 184 H (60-115) mg/dL Ur Leukocyte Esterase (Negative) H & H 02/18/24 02/19/24 Range/Units 00:18 06:52 Hgb 14.6 14.7 (12.0-16.0) g/dl Hct 42.5 43.7 (37.0-47.0) % All other labs normal. <Heather Longoria PA-C - Last Filed: 02/19/24 08:13> Diagnostic results Elbow x-ray: other (XR elbow LT 2V FINDINGS AND IMPRESSION: There is a severely comminuted, displaced fracture of the lateral epicondyle with involvement of the capitellum. There was posterolateral displacement of the radius and ulna on the recent CT imaging exam from 02/18/2024 at 8:18 AM. This follow-up lateral view) <Heather Longoria PA-C - Last Filed: 02/19/24 08:13> Assessment and Plan (1) Elbow fracture, left: Qualifiers: Encounter type: initial encounter Fracture type: closed Qualified Code(s): S42.402A - Unspecified fracture of lower end of left humerus, initial encounter for closed fracture <Heather Longoria PA-C - Last Filed: 02/19/24 08:13> Status: Acute <Heather Longoria PA-C - Last Filed: 02/19/24 08:13> I discussed the case with Dr Marcus and explained the extent of the injury to the patient's family and options available which include surgical intervention. I explained the procedure in detail along with the length of recovery and rehab course. I explained the risk, benefits and alternatives. Risk including, but not limited to infection, blood clots, bleeding, non union or malunion and nerve/tissue damage to surrounding areas. I answered all their questions and with their understanding they have consented to move forward with Operative Fixation of the left elbow. The patient will be T&S, med clearance obtained and NPO after midnight. <Heather Longoria PA-C - Last Filed: 02/19/24 08:13> Procedures Date of Service Date of Service: 02/19/24 <Heather Longoria PA-C - Last Filed: 02/19/24 08:13> 02/21/24 <Angel Marcus MD - Last Filed: 02/21/24 13:49>
[2024-02-19] MEDS: Docusate Sodium 100 MG CAPSULE PO ×2 (08:39→21:47)
[2024-02-19] MEDS: polyethylene glycoL 3350 17 GM POWD.PACK PO (08:39)
[2024-02-19] MEDS: Insulin Lispro 100 UNIT/ML 3 ML VIAL SUBCUT ×4 (08:39→21:46)
[2024-02-19 11:07] LABS: Glucose, Whole Blood 221 mg/dL (60-115)
[2024-02-19 11:34] VITALS: BP 143/58; PULSE 75; RESP 20; TEMP 36.9; O2SAT 96
--- NOTE | 2024-02-19 12:34 | MHC.CM.PN ---
IMM 02/18. Pt with dx: dementia, CM intake assessment completed with pts son/HCP [place]. Pt lives alone at home and has family support daily from her son and daughter. Pts son or daughter will transport her home at discharge. HCP copy requested. DCP: return home with new services vs STR, pending surgical repair of left elbow fracture and PT eval. PCP: Dr. Lisy Gonzalez
--- NOTE | 2024-02-19 12:41 | HO.WOUND ---
Wound Consult: Initial 79yr old Female? admitted to [facility] on 02/18/24 - See progress notes and H&P for detailed history.? Wound consult placed for bruising to left eye and left lip.? Patient agreeable to assessment and photo documentation.? Areas assessed and noted for bruising siwht some swelling there are no open wounds assessed as this time. No topical recommendations needed will discontinue wound consult order - direct care team notified to re-consult should wound development or concerns occur.
--- NOTE | 2024-02-19 13:09 | P.PNIM_ITS ---
Subjective Subjective Date of Service: 02/19/24 Review of Systems Follow up fall, elbow fx still with some confusion sling on Physical Exam 2 Vital Signs: Vital Signs: Last Vital Signs Temp 98.4 F 02/19/24 11:34 Pulse 75 02/19/24 11:34 Resp 20 02/19/24 11:34 BP 143/58 H 02/19/24 11:34 Pulse Ox 96 02/19/24 11:34 O2 Del Method Room Air 02/19/24 11:34 BMI result Body Mass Index 26.6 Appearing in no acute distress lung sounds are clear to auscultation heart regular rate rhythm, clear S1, S2 positive bowel sounds, abdomen is soft, nontender neuro patient is alert, confused Objective Data Active Medications Acetaminophen (Acetaminophen 325 Mg Tablet) 650 mg PO Q6H PRN PRN Reason: Pain, Mild (Pain Scale 1-3) Bisacodyl (Bisacodyl 10 Mg Supp.Rect) 10 mg [place] BEDTIME PRN PRN Reason: Constipation Docusate Sodium (Docusate Sodium 100 Mg Capsule) 100 mg PO BID [facility] Last Admin: 02/19/24 08:39 Dose: 100 mg Documented By: CISCO Enoxaparin Sodium (Enoxaparin Sodium 40 Mg/0.4 Ml Syringe) 40 mg SUBCUT Q24H [facility] Last Admin: 02/18/24 18:29 Dose: 40 mg Documented By: JAILYN Glucose (Glucose Gel 15 Gm Gel..Gram.) 15 gm PO Q15M PRN; Protocol PRN Reason: per Hypoglycemia Standing Ord. Dextrose (D10) 250 mls @ 750 mls/hr IV Q15M PRN; Protocol PRN Reason: per Hypoglycemia Standing Ord. Insulin Human Lispro (Insulin Lispro 100 Unit/Ml 3 Ml Vial) 0 unit SUBCUT QIDACHS [facility]; Protocol Last Admin: 02/19/24 11:17 Dose: 4 unit Documented By: CISCO Morphine Sulfate (Morphine Sulfate 2 Mg/Ml Cartridge) 2 mg IVPUSH Q4H PRN; Protocol PRN Reason: Pain, Severe (Pain Scale 7-10) Ondansetron HCl (Ondansetron Hcl 4 Mg/2 Ml Vial) 4 mg IVPUSH Q8H PRN PRN Reason: Nausea and Vomiting Oxycodone HCl (Oxycodone Hcl Immed Release 5 Mg Tablet) 5 mg PO Q6H PRN PRN Reason: Pain, Moderate(Pain Scale 4-6) Polyethylene Glycol (Polyethylene Glycol 3350 17 Gm Powd.Pack) 17 gm PO DAILY [facility] Last Admin: 02/19/24 08:39 Dose: 17 gm Documented By: CISCO Sodium Chloride (0.9 % Sodium Chloride Flush 3 Ml Syringe) 3 ml IVFLUSH QSHIFT [facility] Last Admin: 02/19/24 08:39 Dose: 3 ml Documented By: CISCO Labs 02/19/24 06:52 02/19/24 06:52 Labs: Laboratory Results - last 24 hr 02/18/24 02/18/24 02/18/24 15:13 17:44 21:12 MCV MCH MCHC RDW Plt Count MPV Absolute Nucleated RBC Nucleated RBC % (auto) Anion Gap Estim Creat Clear Calc Estimated GFR POC Glucose 195 H 267 H Random Glucose Calcium Urine Color Yellow Urine Appearance Clear Urine pH 7.0 Ur Specific [place] 1.015 Urine Protein Negative Urine Glucose (UA) Negative Urine Ketones Negative Urine Blood Negative Urine Nitrite Negative Ur Leukocyte Esterase Small (1+) H Urine RBC 0-2 Urine WBC 0-5 Ur Squamous Epith Cells 0-2 Urine Bacteria None Seen Hyaline Casts 0-2 02/19/24 02/19/24 02/19/24 06:52 07:13 10:50 MCV 90.1 MCH 30.3 MCHC 33.6 RDW 11.9 Plt Count 198 MPV 9.4 Absolute Nucleated RBC 0.000 Nucleated RBC % (auto) 0.0 Anion Gap 13 Estim Creat Clear Calc 50.4 Estimated GFR > 60 POC Glucose 175 H 221 H Random Glucose 184 H Calcium 8.9 D Urine Color Urine Appearance Urine pH Ur Specific [place] Urine Protein Urine Glucose (UA) Urine Ketones Urine Blood Urine Nitrite Ur Leukocyte Esterase Urine RBC Urine WBC Ur Squamous Epith Cells Urine Bacteria Hyaline Casts Microbiology Microbiology Results: Microbiology 02/18/24 15:42 Urine Culture - Final Urine clean catch - Urine franklin top Assessment and Plan (1) Elbow fracture, left: Status: Acute (2) Unwitnessed fall: Status: Acute Plan This is an 79-year-old female with history of Alzheimer's dementia, diabetes, high blood pressure, cholesterol who was brought to the emergency department after she was found outside her home lying on the ground and found to have proximal and lateral dislocation of the radius and ulna at the elbow with a comminuted fracture of the lateral epicondyle of the distal humerus and displaced fracture of the radial head Left elbow fracture Reduced in the ED Orthopedic consult> plan for surgery tomorrow, npo after midnight Pain management; bowel regimen Unwitnessed fall Likely mechanical but can not rule out syncope Will monitor on telemetry Leukocytosis Likely reactive secondary to fracture/fall Patient afebrile, no evidence of infection Type 2 diabetes Hold metformin Diabetic diet Follow POCs, insulin sliding scale as needed Hypertension Continue valsartan HLD continue statin Alzheimer's dementia continue donepezil memantine unclear if patient still taking awaiting clarification from family med rec pending at the time of admission DVT prophylaxis-Lovenox Code status-DNR/DNI per family at the bedside Attending Dr. Mills Disposition-likely rehab. Will need PT evaluation after surgery continue hospital stay due to fall, syncope evaluation, specialist evaluation and surgery for complex fracture Quality Stroke Does the patient have a stroke diagnosis?: No VTE Prior VTE?: No VTE Risk Level:: Medical - moderate - high VTE Device Contraindication: N/A - Device Ordered VTE Drug Contraindication: N/A - Med Ordered
[2024-02-19 16:00] VITALS: BP 148/55; PULSE 71; RESP 16; TEMP 36.4; O2SAT 98
[2024-02-19 16:51] LABS: Glucose, Whole Blood 203 mg/dL (60-115)
[2024-02-19] MEDS: Enoxaparin Sodium 40 MG/0.4 ML SYRINGE SUBCUT (17:20)
[2024-02-19 19:46] VITALS: BP 150/55; PULSE 83; RESP 18; TEMP 37.5; O2SAT 92
[2024-02-19 20:51] LABS: Glucose, Whole Blood 281 mg/dL (60-115)
[2024-02-19] MEDS: Acetaminophen 325 MG TABLET 650 MG PO (21:46)
[2024-02-19] MEDS: oxyCODONE HCl Immed Release 5 MG TABLET PO (21:46)
[2024-02-19] MEDS: Donepezil HCl 10 MG TABLET PO (21:47)
[2024-02-20] VITALS (8 sets, daily range): BP systolic 121–154; BP diastolic 59–67; PULSE 62–98; RESP 16–20; TEMP 36.1–37.1; O2SAT 92–98
[2024-02-20 07:06] LABS: Glucose, Whole Blood 160 mg/dL (60-115)
[2024-02-20] MEDS: Docusate Sodium 100 MG CAPSULE PO ×2 (08:34→20:13)
[2024-02-20] MEDS: Multivitamin TABLET 1 TAB PO (08:35)
[2024-02-20] MEDS: 0.9 % Sodium Chloride Flush 3 ML SYRINGE IVFLUSH ×3 (08:35→20:18)
[2024-02-20] MEDS: Valsartan 80 MG TABLET PO (08:35)
[2024-02-20] MEDS: Loratadine 10 MG TABLET PO (08:35)
[2024-02-20] MEDS: Insulin Lispro 100 UNIT/ML 3 ML VIAL SUBCUT ×3 (08:35→17:24)
--- NOTE | 2024-02-20 10:47 | MHC.CM.PN ---
Addendum entered by Melinda Whiteside 02/20/24 15:43: This CM met with pt, she was alert with some confusion. This CM informed the pt on what a HCP was and offered to complete one with her, pt stated I don't know about that, maybe another time. CM unable to complete a HCP with pt at this time. Addendum entered by Melinda Whiteside 02/20/24 11:16: Return call received from Dr. Gonzalez's office and they do not have a HCP on file for pt. Original Note: This CM met with pts son Austen per his request. Per Austen if his mother needs STR, their preferences are [facility] [place], or [place] They would not want her to [facility] to [facility], [place], or [place]. Austen states he did not have a copy of the HCP, but states he is the POA too. This CM called [facility], they did not have a HCP on file. This CM called Dr. Lisy Gonzalez's office to request a HCP copy, voicemail was left, awaiting return call. This CM will try to revisit pt later and if she is more awake and able to make needs known about a HCP, will attempt to complete one with pt at that time.
[2024-02-20 10:55] LABS: Glucose, Whole Blood 220 mg/dL (60-115)
--- NOTE | 2024-02-20 11:25 | HO.PM.IMPN ---
Subjective Subjective Date of Service: 02/20/24 Review of Systems Follow up fall, elbow fx still with some confusion sling on Physical Exam Vital Signs: Vital Signs: Last Vital Signs Temp 98.2 F 02/20/24 11:22 Pulse 71 02/20/24 11:22 Resp 18 02/20/24 11:22 BP 132/61 02/20/24 11:22 Pulse Ox 92 02/20/24 11:22 O2 Del Method Room Air 02/20/24 11:22 BMI result Body Mass Index 26.6 Appearing in no acute distress Ecchymosis to left eye lung sounds are clear to auscultation heart regular rate rhythm, clear S1, S2 positive bowel sounds, abdomen is soft, nontender neuro patient is alert, confused Left arm sling in place Objective Data Active Medications Acetaminophen (Acetaminophen 325 Mg Tablet) 650 mg PO Q6H PRN PRN Reason: Pain, Mild (Pain Scale 1-3) Last Admin: 02/19/24 21:46 Dose: 650 mg Documented By: VARINDER Bisacodyl (Bisacodyl 10 Mg Supp.Rect) 10 mg [place] BEDTIME PRN PRN Reason: Constipation Docusate Sodium (Docusate Sodium 100 Mg Capsule) 100 mg PO BID [facility] Last Admin: 02/20/24 08:34 Dose: 100 mg Documented By: GENARO Donepezil HCl (Donepezil Hcl 10 Mg Tablet) 10 mg PO BEDTIME [facility] Last Admin: 02/19/24 21:47 Dose: 10 mg Documented By: VARINDER Enoxaparin Sodium (Enoxaparin Sodium 40 Mg/0.4 Ml Syringe) 40 mg SUBCUT Q24H [facility] Last Admin: 02/19/24 17:20 Dose: 40 mg Documented By: CISCO Glucose (Glucose Gel 15 Gm Gel..Gram.) 15 gm PO Q15M PRN; Protocol PRN Reason: per Hypoglycemia Standing Ord. Dextrose (D10) 250 mls @ 750 mls/hr IV Q15M PRN; Protocol PRN Reason: per Hypoglycemia Standing Ord. Insulin Human Lispro (Insulin Lispro 100 Unit/Ml 3 Ml Vial) 0 unit SUBCUT QIDACHS [facility]; Protocol Last Admin: 02/20/24 08:35 Dose: 2 unit Documented By: GENARO Loratadine (Loratadine 10 Mg Tablet) 10 mg PO DAILY [facility] Last Admin: 02/20/24 08:35 Dose: 10 mg Documented By: GENARO Morphine Sulfate (Morphine Sulfate 2 Mg/Ml Cartridge) 2 mg IVPUSH Q4H PRN; Protocol PRN Reason: Pain, Severe (Pain Scale 7-10) Multivitamins/Vitamin C (Multivitamin Tablet) 1 tab PO DAILY [facility] Last Admin: 02/20/24 08:35 Dose: 1 tab Documented By: GENARO Non-Formulary Medication (Memantine) 21 mg PO DAILY [facility] Ondansetron HCl (Ondansetron Hcl 4 Mg/2 Ml Vial) 4 mg IVPUSH Q8H PRN PRN Reason: Nausea and Vomiting Oxycodone HCl (Oxycodone Hcl Immed Release 5 Mg Tablet) 5 mg PO Q6H PRN PRN Reason: Pain, Moderate(Pain Scale 4-6) Last Admin: 02/19/24 21:46 Dose: 5 mg Documented By: VARINDER Polyethylene Glycol (Polyethylene Glycol 3350 17 Gm Powd.Pack) 17 gm PO DAILY [facility] Last Admin: 02/20/24 08:35 Dose: Not Given Documented By: GENARO Non-Admin Reason: NPO Sodium Chloride (0.9 % Sodium Chloride Flush 3 Ml Syringe) 3 ml IVFLUSH QSHIFT [facility] Last Admin: 02/20/24 08:35 Dose: 3 ml Documented By: GENAOR Valsartan (Valsartan 80 Mg Tablet) 80 mg PO DAILY [facility]; Protocol Last Admin: 02/20/24 08:35 Dose: 80 mg Documented By: GENARO Labs 02/19/24 06:52 02/19/24 06:52 Labs: Laboratory Results - last 24 hr 02/19/24 02/19/24 02/20/24 16:45 20:37 06:54 POC Glucose 203 H 281 H 160 H Blood Type Antibody Screen 02/20/24 02/20/24 07:51 10:43 POC Glucose 220 H Blood Type O Positive Antibody Screen NEGATIVE Microbiology Microbiology Results: Microbiology 02/18/24 15:42 Urine Culture - Final Urine clean catch - Urine franklin top Assessment and Plan (1) Elbow fracture, left: Status: Acute (2) Unwitnessed fall: Status: Acute Plan This is an 79-year-old female with history of Alzheimer's dementia, diabetes, high blood pressure, cholesterol who was brought to the emergency department after she was found outside her home lying on the ground and found to have proximal and lateral dislocation of the radius and ulna at the elbow with a comminuted fracture of the lateral epicondyle of the distal humerus and displaced fracture of the radial head Left elbow fracture Reduced in the ED Orthopedic consult> plan for surgery tomorrow, npo after midnight Pain management; bowel regimen Unwitnessed fall Likely mechanical but can not rule out syncope Will monitor on telemetry Leukocytosis Likely reactive secondary to fracture/fall Patient afebrile, no evidence of infection Type 2 diabetes Hold metformin Diabetic diet Follow POCs, insulin sliding scale as needed Hypertension Continue valsartan HLD continue statin Alzheimer's dementia continue donepezil memantine unclear if patient still taking awaiting clarification from family DVT prophylaxis-Lovenox Code status-DNR/DNI per family at the bedside Attending Dr. Mills Disposition-likely rehab. Will need PT evaluation after surgery continue hospital stay due to fall, syncope evaluation, specialist evaluation and surgery for complex fracture Quality Stroke Does the patient have a stroke diagnosis?: No VTE Prior VTE?: No VTE Risk Level:: Medical - moderate - high VTE Device Contraindication: N/A - Device Ordered VTE Drug Contraindication: N/A - Med Ordered
[2024-02-20 16:22] LABS: Glucose, Whole Blood 482 mg/dL (60-115)
[2024-02-20] MEDS: Enoxaparin Sodium 40 MG/0.4 ML SYRINGE SUBCUT (17:25)
[2024-02-20] MEDS: Donepezil HCl 10 MG TABLET PO (20:13)
[2024-02-20 20:14] LABS: Glucose, Whole Blood 274 mg/dL (60-115)
[2024-02-21] VITALS (10 sets, daily range): BP systolic 114–151; BP diastolic 41–70; PULSE 57–95; RESP 14–20; TEMP 36.6–37.3; O2SAT 93–98
[2024-02-21 06:58] LABS: Glucose, Whole Blood 189 mg/dL (60-115)
[2024-02-21] MEDS: oxyCODONE HCl Immed Release 5 MG TABLET PO (08:04)
[2024-02-21] MEDS: Valsartan 80 MG TABLET PO (08:04)
[2024-02-21] MEDS: 0.9 % Sodium Chloride Flush 3 ML SYRINGE IVFLUSH ×2 (08:05→16:56)
--- NOTE | 2024-02-21 08:32 | PM.PNORT ---
Subjective Subjective Date of Service: 02/21/24 Interval history: Patient resting in bed comfortably family at bedside Splint intact left upper extremity Denies any pain Physical Exam Vital Signs: Vital Signs: Last Vital Signs Temp 98.3 F 02/21/24 07:18 Pulse 68 02/21/24 07:18 Resp 18 02/21/24 07:18 BP 141/65 H 02/21/24 07:18 Pulse Ox 93 02/21/24 07:18 O2 Del Method Room Air 02/21/24 07:18 BMI result Body Mass Index 26.6 Const: General: cooperative, healthy appearing and no acute distress Orientation/consciousness: patient oriented x3 HEENT: Head: Yes normal to inspection, Yes normocephalic and Yes atraumatic Eyes: General: appearance normal, both eyes and all related structures Neck: Neck: Yes normal visual inspection and Yes no lymphadenopathy Resp: Effort & Inspection: normal respiratory effort and able to speak in complete sentences Cardio: Rate: regular rate Peripheral pulses: Peripheral pulses 2+ throughout GI: Inspection: Yes normal to inspection Palpation (GI): Soft to palpation Skin: General skin exam: no rashes or lesions noted Lesions: no lesions Rashes: no rashes Neuro: General: patient oriented x3 Extrem: Other: Left elbow skin intact. Moderate edema. Able to move all digits. capillary refill is brisk. Psych: Appearance: grossly normal Mental Status: mental status grossly normal Procedures Date of Service Date of Service: 02/21/24 Progress Note: A&P Assessment and plan (1) Elbow fracture, left: Status: Acute (2) Unwitnessed fall: Status: Acute (3) Dementia: Status: Acute Plan Remain NPO Plan for OR later today Dr. Marcus available to speak with the patient's daughter and son for consenting Dr. Marcus discussed the case with the patient's daughter and son and explained the extent of the injury to the patient and options available which include surgical intervention. Dr. Marcus explained the procedure in detail along with the length of recovery and rehab course. Dr. Marcus explained the risk, benefits and alternatives. Risk including, but not limited to infection, blood clots, bleeding, non union or malunion and nerve/tissue damage to surrounding areas. Dr. Marcus answered all their questions and with their understanding they have consented to move forward with Operative Fixation of left elbow. Time Spent With Patient Time: Total time managing care of this patient today ____ minutes. Quality Stroke Does the patient have a stroke diagnosis?: No VTE Prior VTE?: No VTE Risk Level:: Medical - moderate - high VTE Device Contraindication: N/A - Device Ordered VTE Drug Contraindication: N/A - Med Ordered
--- NOTE | 2024-02-21 10:38 | P.PNIM_ITS ---
Subjective Subjective Date of Service: 02/21/24 Review of Systems Follow up fall, elbow fx still with some confusion sling on Physical Exam 2 Vital Signs: Vital Signs: Last Vital Signs Temp 98.3 F 02/21/24 07:18 Pulse 68 02/21/24 07:18 Resp 18 02/21/24 07:18 BP 141/65 H 02/21/24 07:18 Pulse Ox 93 02/21/24 07:18 O2 Del Method Room Air 02/21/24 07:18 BMI result Body Mass Index 26.6 Appearing in no acute distress lung sounds are clear to auscultation heart regular rate rhythm, clear S1, S2 positive bowel sounds, abdomen is soft, nontender neuro patient is alert, confused Ecchymosis to left eye Objective Data Active Medications Acetaminophen (Acetaminophen 325 Mg Tablet) 650 mg PO Q6H PRN PRN Reason: Pain, Mild (Pain Scale 1-3) Last Admin: 02/19/24 21:46 Dose: 650 mg Documented By: VARINDER Bisacodyl (Bisacodyl 10 Mg Supp.Rect) 10 mg [place] BEDTIME PRN PRN Reason: Constipation Docusate Sodium (Docusate Sodium 100 Mg Capsule) 100 mg PO BID [facility] Last Admin: 02/21/24 08:18 Dose: Not Given Documented By: BLAS Non-Admin Reason: NPO Donepezil HCl (Donepezil Hcl 10 Mg Tablet) 10 mg PO BEDTIME [facility] Last Admin: 02/20/24 20:13 Dose: 10 mg Documented By: CARA Enoxaparin Sodium (Enoxaparin Sodium 40 Mg/0.4 Ml Syringe) 40 mg SUBCUT Q24H [facility] Last Admin: 02/20/24 17:25 Dose: 40 mg Documented By: GENARO Glucose (Glucose Gel 15 Gm Gel..Gram.) 15 gm PO Q15M PRN; Protocol PRN Reason: per Hypoglycemia Standing Ord. Dextrose (D10) 250 mls @ 750 mls/hr IV Q15M PRN; Protocol PRN Reason: per Hypoglycemia Standing Ord. Insulin Human Lispro (Insulin Lispro 100 Unit/Ml 3 Ml Vial) 0 unit SUBCUT QIDACHS [facility]; Protocol Last Admin: 02/21/24 07:42 Dose: Not Given Documented By: BLAS Non-Admin Reason: NPO Loratadine (Loratadine 10 Mg Tablet) 10 mg PO DAILY [facility] Last Admin: 02/21/24 08:18 Dose: Not Given Documented By: BLAS Non-Admin Reason: NPO Morphine Sulfate (Morphine Sulfate 2 Mg/Ml Cartridge) 2 mg IVPUSH Q4H PRN; Protocol PRN Reason: Pain, Severe (Pain Scale 7-10) Multivitamins/Vitamin C (Multivitamin Tablet) 1 tab PO DAILY [facility] Last Admin: 02/21/24 08:18 Dose: Not Given Documented By: BLAS Non-Admin Reason: NPO Non-Formulary Medication (Memantine) 21 mg PO DAILY [facility] Ondansetron HCl (Ondansetron Hcl 4 Mg/2 Ml Vial) 4 mg IVPUSH Q8H PRN PRN Reason: Nausea and Vomiting Oxycodone HCl (Oxycodone Hcl Immed Release 5 Mg Tablet) 5 mg PO Q6H PRN PRN Reason: Pain, Moderate(Pain Scale 4-6) Last Admin: 02/21/24 08:04 Dose: 5 mg Documented By: BLAS Polyethylene Glycol (Polyethylene Glycol 3350 17 Gm Powd.Pack) 17 gm PO DAILY [facility] Last Admin: 02/21/24 08:18 Dose: Not Given Documented By: BLAS Non-Admin Reason: NPO Sodium Chloride (0.9 % Sodium Chloride Flush 3 Ml Syringe) 3 ml IVFLUSH QSHIFT [facility] Last Admin: 02/21/24 08:05 Dose: 3 ml Documented By: BLAS Valsartan (Valsartan 80 Mg Tablet) 80 mg PO DAILY [facility]; Protocol Last Admin: 02/21/24 08:04 Dose: 80 mg Documented By: BLAS Labs 02/19/24 06:52 02/19/24 06:52 Labs: Laboratory Results - last 24 hr 02/20/24 02/20/24 02/20/24 10:43 16:16 20:10 POC Glucose 220 H 482 H* 274 H 02/21/24 06:47 POC Glucose 189 H Assessment and Plan (1) Elbow fracture, left: Status: Acute (2) Unwitnessed fall: Status: Acute Plan This is an 79-year-old female with history of Alzheimer's dementia, diabetes, high blood pressure, cholesterol who was brought to the emergency department after she was found outside her home lying on the ground and found to have proximal and lateral dislocation of the radius and ulna at the elbow with a comminuted fracture of the lateral epicondyle of the distal humerus and displaced fracture of the radial head Left elbow fracture Reduced in the ED Orthopedic consult> plan for surgery today Pain management; bowel regimen Unwitnessed fall Likely mechanical, no arrythmia or syncopal episodes during hospital stay so far continue to monitor on telemetry Leukocytosis. Resolved Likely reactive secondary to fracture/fall Patient afebrile, no evidence of infection Type 2 diabetes Hold metformin Diabetic diet Follow POCs, insulin sliding scale as needed Hypertension Continue valsartan HLD continue statin Alzheimer's dementia continue donepezil DVT prophylaxis-Lovenox Code status-DNR/DNI per family at the bedside Attending Dr. Garcia Disposition-likely rehab. Will need PT evaluation after surgery continue hospital stay due to fall, syncope evaluation, specialist evaluation and surgery for complex fracture Quality Stroke Does the patient have a stroke diagnosis?: No VTE Prior VTE?: No VTE Risk Level:: Medical - moderate - high VTE Device Contraindication: N/A - Device Ordered VTE Drug Contraindication: N/A - Med Ordered
[2024-02-21 10:46] LABS: Glucose, Whole Blood 242 mg/dL (60-115)
[2024-02-21 11:00] LABS: Glucose, Whole Blood 244 mg/dL (60-115)
--- NOTE | 2024-02-21 11:08 | PC.NURSE ---
multibruising to face noted
--- NOTE | 2024-02-21 13:46 | HO.ANESPROP2 ---
HPI - Anesthesia Eval Consult details Narrative: 79 yo F admitted with left elbow fracture. Hx of Alzheimer disease. DNR/DNI. [facility] Active Problems Active Problems: All Active Problems Elbow fracture, left (Acute) Unwitnessed fall (Acute) Dementia (Acute) Family History Family history of problems with anesthesia: Unobtainable Surgical History History of Problems with Anesthesia: No Social History Social History Household Members: Unknown / Unable to assess Housing: Unknown / Unable to assess Patient Tobacco Use Status: Never used Tobacco Smoked in Last 30 Days: No Use of substances other than those prescribed or required for medical reasons: No Currently Displaying Signs/Symptoms of Drug Intoxication Withdrawal: No Do you feel safe in your current relationship?: No Current Relationship Are you DNR?: Yes Advance Directives: Yes Advance Directives on File: Yes Advance Directives Date on File: 02/17/24 Do you have a plan to hurt others: No Plan Recently lost weight without trying: Unsure Eating poorly because of decreased appetite: No Nutrition Risks: No Nutritional Risk Patient : No Poor oral hygiene: No service: No Meds Allergies Allergy/AdvReac Type Severity Reaction Status Date / Time No Known Allergies Allergy Verified 02/17/24 22:42 Active Medications: Current Medications Acetaminophen (Acetaminophen 325 Mg Tablet) 650 mg PO Q6H PRN PRN Reason: Pain, Mild (Pain Scale 1-3) Last Admin: 02/19/24 21:46 Dose: 650 mg Bisacodyl (Bisacodyl 10 Mg Supp.Rect) 10 mg [place] BEDTIME PRN PRN Reason: Constipation Docusate Sodium (Docusate Sodium 100 Mg Capsule) 100 mg PO BID [facility] Last Admin: 02/21/24 08:18 Dose: Not Given Donepezil HCl (Donepezil Hcl 10 Mg Tablet) 10 mg PO BEDTIME [facility] Last Admin: 02/20/24 20:13 Dose: 10 mg Enoxaparin Sodium (Enoxaparin Sodium 40 Mg/0.4 Ml Syringe) 40 mg SUBCUT Q24H [facility] Last Admin: 02/20/24 17:25 Dose: 40 mg Glucose (Glucose Gel 15 Gm Gel..Gram.) 15 gm PO Q15M PRN; Protocol PRN Reason: per Hypoglycemia Standing Ord. Dextrose (D10) 250 mls @ 750 mls/hr IV Q15M PRN; Protocol PRN Reason: per Hypoglycemia Standing Ord. Insulin Human Lispro (Insulin Lispro 100 Unit/Ml 3 Ml Vial) 0 unit SUBCUT QIDACHS [facility]; Protocol Last Admin: 02/21/24 11:22 Dose: Not Given Loratadine (Loratadine 10 Mg Tablet) 10 mg PO DAILY [facility] Last Admin: 02/21/24 08:18 Dose: Not Given Morphine Sulfate (Morphine Sulfate 2 Mg/Ml Cartridge) 2 mg IVPUSH Q4H PRN; Protocol PRN Reason: Pain, Severe (Pain Scale 7-10) Multivitamins/Vitamin C (Multivitamin Tablet) 1 tab PO DAILY [facility] Last Admin: 02/21/24 08:18 Dose: Not Given Non-Formulary Medication (Memantine) 21 mg PO DAILY [facility] Ondansetron HCl (Ondansetron Hcl 4 Mg/2 Ml Vial) 4 mg IVPUSH Q8H PRN PRN Reason: Nausea and Vomiting Oxycodone HCl (Oxycodone Hcl Immed Release 5 Mg Tablet) 5 mg PO Q6H PRN PRN Reason: Pain, Moderate(Pain Scale 4-6) Last Admin: 02/21/24 08:04 Dose: 5 mg Polyethylene Glycol (Polyethylene Glycol 3350 17 Gm Powd.Pack) 17 gm PO DAILY [facility] Last Admin: 02/21/24 08:18 Dose: Not Given Sodium Chloride (0.9 % Sodium Chloride Flush 3 Ml Syringe) [facility] Last Admin: 02/21/24 08:05 Dose: 3 ml Valsartan (Valsartan 80 Mg Tablet) 80 mg PO DAILY [facility]; Protocol Last Admin: 02/21/24 08:04 Dose: 80 mg Home Medications ?Medication ?Instructions ?Recorded ?Confirmed ?Last Taken ?Type atorvastatin 20 mg tablet 20 mg PO DAILY 02/18/24 02/18/24 Unknown History ciclopirox 0.77 % topical cream 1 appl topical BID 02/18/24 02/18/24 Unknown History donepezil 10 mg tablet 10 mg PO BEDTIME 02/18/24 02/18/24 Unknown History loratadine 10 mg tablet 10 mg PO DAILY 02/18/24 02/18/24 Unknown History memantine 21 mg capsule 21 mg PO DAILY 02/18/24 02/18/24 Unknown History sprinkle,extended release 24hr metformin 500 mg tablet,extended 1,500 mg PO DAILY@1800 02/18/24 02/18/24 Unknown History release 24 hr multivitamin 1 tab PO DAILY 02/18/24 02/18/24 Unknown History valsartan 80 mg tablet 80 mg PO DAILY 02/18/24 02/18/24 Unknown History Exam Exam Date and Time: February 21, 2024 1328 Height,Weight and Vital Signs: Height 5 ft 3 in Weight 68 kg Last Vital Signs Temp 98.4 F 02/21/24 11:01 Pulse 68 02/21/24 11:01 Resp 20 02/21/24 11:01 BP 114/41 L 02/21/24 11:01 Pulse Ox 96 02/21/24 11:01 O2 Del Method Room Air 02/21/24 11:01 Pertinent Lab Results Pertinent Lab Results: Laboratory Tests 02/17/24 02/18/24 02/18/24 22:53 00:04 00:18 WBC 14.4 H RBC 4.76 Hgb 14.6 Hct 42.5 MCV 89.3 MCH 30.7 MCHC 34.4 RDW 11.9 Plt Count 217 MPV 9.0 L Immature Gran % (Auto) 0.3 Neut % (Auto) 81.0 H Lymph % (Auto) 10.7 L [place] % (Auto) 6.9 Eos % (Auto) 0.8 Baso % (Auto) 0.3 Lymph # (Auto) 1.5 [place] # (Auto) 1.0 Eos # (Auto) 0.1 Baso # (Auto) 0.1 Abs Immat Gran (auto) 0.05 H Absolute Neuts (auto) 11.7 H Absolute Nucleated RBC 0.000 Nucleated RBC % (auto) 0.0 Sodium 138 Potassium 4.1 Chloride 102 Carbon Dioxide 23 Anion Gap 17 BUN 21 H Creatinine 1.01 Estim Creat Clear Calc 40.1 Estimated GFR 53 POC Glucose 164 H Random Glucose 190 H Calcium 9.9 Total Bilirubin 0.5 Direct Bilirubin 0.2 AST 16 ALT 14 Alkaline Phosphatase 71 Total Creatine Kinase 78 Troponin I High Sens < 2.7 Total Protein 7.1 Albumin 4.3 Urine Color Urine Appearance Urine pH Ur Specific [place] Urine Protein Urine Glucose (UA) Urine Ketones Urine Blood Urine Nitrite Ur Leukocyte Esterase Urine RBC Urine WBC Ur Squamous Epith Cells Urine Bacteria Hyaline Casts Blood Type Antibody Screen 02/18/24 02/18/24 02/18/24 15:13 17:44 21:12 WBC RBC Hgb Hct MCV MCH MCHC RDW Plt Count MPV Immature Gran % (Auto) Neut % (Auto) Lymph % (Auto) [place] % (Auto) Eos % (Auto) Baso % (Auto) Lymph # (Auto) [place] # (Auto) Eos # (Auto) Baso # (Auto) Abs Immat Gran (auto) Absolute Neuts (auto) Absolute Nucleated RBC Nucleated RBC % (auto) Sodium Potassium Chloride Carbon Dioxide Anion Gap BUN Creatinine Estim Creat Clear Calc Estimated GFR POC Glucose 195 H 267 H Random Glucose Calcium Total Bilirubin Direct Bilirubin AST ALT Alkaline Phosphatase Total Creatine Kinase Troponin I High Sens Total Protein Albumin Urine Color Yellow Urine Appearance Clear Urine pH 7.0 Ur Specific [place] 1.015 Urine Protein Negative Urine Glucose (UA) Negative Urine Ketones Negative Urine Blood Negative Urine Nitrite Negative Ur Leukocyte Esterase Small (1+) H Urine RBC 0-2 Urine WBC 0-5 Ur Squamous Epith Cells 0-2 Urine Bacteria None Seen Hyaline Casts 0-2 Blood Type Antibody Screen 02/19/24 02/19/24 02/19/24 06:52 07:13 10:50 WBC 9.2 RBC 4.85 Hgb 14.7 Hct 43.7 MCV 90.1 MCH 30.3 MCHC 33.6 RDW 11.9 Plt Count 198 MPV 9.4 Immature Gran % (Auto) Neut % (Auto) Lymph % (Auto) [place] % (Auto) Eos % (Auto) Baso % (Auto) Lymph # (Auto) [place] # (Auto) Eos # (Auto) Baso # (Auto) Abs Immat Gran (auto) Absolute Neuts (auto) Absolute Nucleated RBC 0.000 Nucleated RBC % (auto) 0.0 Sodium 138 Potassium 3.9 Chloride 104 Carbon Dioxide 25 Anion Gap 13 BUN 12 Creatinine 0.81 Estim Creat Clear Calc 50.4 Estimated GFR > 60 POC Glucose 175 H 221 H Random Glucose 184 H Calcium 8.9 D Total Bilirubin Direct Bilirubin AST ALT Alkaline Phosphatase Total Creatine Kinase Troponin I High Sens Total Protein Albumin Urine Color Urine Appearance Urine pH Ur Specific [place] Urine Protein Urine Glucose (UA) Urine Ketones Urine Blood Urine Nitrite Ur Leukocyte Esterase Urine RBC Urine WBC Ur Squamous Epith Cells Urine Bacteria Hyaline Casts Blood Type Antibody Screen 02/19/24 02/19/24 02/20/24 16:45 20:37 06:54 WBC RBC Hgb Hct MCV MCH MCHC RDW Plt Count MPV Immature Gran % (Auto) Neut % (Auto) Lymph % (Auto) [place] % (Auto) Eos % (Auto) Baso % (Auto) Lymph # (Auto) [place] # (Auto) Eos # (Auto) Baso # (Auto) Abs Immat Gran (auto) Absolute Neuts (auto) Absolute Nucleated RBC Nucleated RBC % (auto) Sodium Potassium Chloride Carbon Dioxide Anion Gap BUN Creatinine Estim Creat Clear Calc Estimated GFR POC Glucose 203 H 281 H 160 H Random Glucose Calcium Total Bilirubin Direct Bilirubin AST ALT Alkaline Phosphatase Total Creatine Kinase Troponin I High Sens Total Protein Albumin Urine Color Urine Appearance Urine pH Ur Specific [place]mo Urine Protein Urine Glucose (UA) Urine Ketones Urine Blood Urine Nitrite Ur Leukocyte Esterase Urine RBC Urine WBC Ur Squamous Epith Cells Urine Bacteria Hyaline Casts Blood Type Antibody Screen 02/20/24 02/20/24 02/20/24 07:51 10:43 16:16 WBC RBC Hgb Hct MCV MCH MCHC RDW Plt Count MPV Immature Gran % (Auto) Neut % (Auto) Lymph % (Auto) [place] % (Auto) Eos % (Auto) Baso % (Auto) Lymph # (Auto) [place] # (Auto) Eos # (Auto) Baso # (Auto) Abs Immat Gran (auto) Absolute Neuts (auto) Absolute Nucleated RBC Nucleated RBC % (auto) Sodium Potassium Chloride Carbon Dioxide Anion Gap BUN Creatinine Estim Creat Clear Calc Estimated GFR POC Glucose 220 H 482 H* Random Glucose Calcium Total Bilirubin Direct Bilirubin AST ALT Alkaline Phosphatase Total Creatine Kinase Troponin I High Sens Total Protein Albumin Urine Color Urine Appearance Urine pH Ur Specific [place] Urine Protein Urine Glucose (UA) Urine Ketones Urine Blood Urine Nitrite Ur Leukocyte Esterase Urine RBC Urine WBC Ur Squamous Epith Cells Urine Bacteria Hyaline Casts Blood Type O Positive Antibody Screen NEGATIVE 02/20/24 02/21/24 02/21/24 20:10 06:47 10:34 WBC RBC Hgb Hct MCV MCH MCHC RDW Plt Count MPV Immature Gran % (Auto) Neut % (Auto) Lymph % (Auto) [place] % (Auto) Eos % (Auto) Baso % (Auto) Lymph # (Auto) [place] # (Auto) Eos # (Auto) Baso # (Auto) Abs Immat Gran (auto) Absolute Neuts (auto) Absolute Nucleated RBC Nucleated RBC % (auto) Sodium Potassium Chloride Carbon Dioxide Anion Gap BUN Creatinine Estim Creat Clear Calc Estimated GFR POC Glucose 274 H 189 H 242 H Random Glucose Calcium Total Bilirubin Direct Bilirubin AST ALT Alkaline Phosphatase Total Creatine Kinase Troponin I High Sens Total Protein Albumin Urine Color Urine Appearance Urine pH Ur Specific [place] Urine Protein Urine Glucose (UA) Urine Ketones Urine Blood Urine Nitrite Ur Leukocyte Esterase Urine RBC Urine WBC Ur Squamous Epith Cells Urine Bacteria Hyaline Casts Blood Type Antibody Screen 02/21/24 10:55 WBC RBC Hgb Hct MCV MCH MCHC RDW Plt Count MPV Immature Gran % (Auto) Neut % (Auto) Lymph % (Auto) [place] % (Auto) Eos % (Auto) Baso % (Auto) Lymph # (Auto) [place] # (Auto) Eos # (Auto) Baso # (Auto) Abs Immat Gran (auto) Absolute Neuts (auto) Absolute Nucleated RBC Nucleated RBC % (auto) Sodium Potassium Chloride Carbon Dioxide Anion Gap BUN Creatinine Estim Creat Clear Calc Estimated GFR POC Glucose 244 H Random Glucose Calcium Total Bilirubin Direct Bilirubin AST ALT Alkaline Phosphatase Total Creatine Kinase Troponin I High Sens Total Protein Albumin Urine Color Urine Appearance Urine pH Ur Specific [place] Urine Protein Urine Glucose (UA) Urine Ketones Urine Blood Urine Nitrite Ur Leukocyte Esterase Urine RBC Urine WBC Ur Squamous Epith Cells Urine Bacteria Hyaline Casts Blood Type Antibody Screen Airway Mallampati Class: Patient Non-Cooperative TM Dist: >3cm Heart: S1S2 Lungs: CTAB Other: Unable to assess airway. Patient was non-cooperative Assessment and Plan Assessment Anesthesia Assessment: Anesthesia Plan Discussed and Chart Reviewed Final Anesthetic Review Family History of Problems with Anesthesia: Unobtainable History of Problems with Anesthesia: No NPO: Yes ASA Class: III Final Preanesthetic Review: No Changes in Pt Med Stat, Meds/Allgs Chart Reviewed, Consent Obtained/Reviewed (consent obtained from Austen Mistry - son and healthcare proxy), Anes Risks/Benef Reviewed and DNR Form (If Appl.) Patient Risk: Intermediate Procedure Risk: Intermediate Anesthetic Plan Anesthetic Plan: GA and Agree w/ Assess. and Plan Disposition: Standard PACU
--- NOTE | 2024-02-21 13:47 | MHC.SHP ---
Pre-Procedural Eval Section A - 24 Hr Update-Section A only Date of Service: 02/21/24 The patient is an INPATIENT: Yes Changes since office visit: No Cold of Flu in the past 2 weeks, No New Medical Problems, No Changes in Medication and No Patient answered all questions The patient has been examined within 24 hours of the surgical procedure. The History & Physical has been completed within 30 days and I have reviewed it.: Yes Section B - Complete if H&P > 30 days Chief Complaint: Fall ?Syncope, left elbow fracture Allergies: Allergies Allergy/AdvReac Type Severity Reaction Status Date / Time No Known Allergies Allergy Verified 02/17/24 22:42 Plan I have reviewed the history and physical and performed a pertinent physical examination on my patient. No changes have occurred unless specified. Time Spent With Patient Time: Total time managing care of this patient today ____ minutes.
--- NOTE | 2024-02-21 16:01 | PM.OP ---
Brief Operative Note Date of Service: 02/21/24 Pre-op diagnosis: Left elbow fracture/dislocation Post-op diagnosis: same Procedure: ORIF left capitellum and LCL avulsion repair Surgeon: Angel Marcus MD Anesthesia: GETA Was an Extras Casting Director used for this Procedure?: Yes Extras Casting Director: Briseida Olmstead Estimated blood loss (mL): 75 IV fluids (mL): 750 Pathology: none sent Condition: stable Disposition: PACU
--- NOTE | 2024-02-21 16:13 | MHC.CM.PN ---
EMR reviewed and per MD rounds, pt is not medically cleared for discharge today due to surgery for left elbow fracture repair today.
[2024-02-21] MEDS: Enoxaparin Sodium 40 MG/0.4 ML SYRINGE SUBCUT (16:56)
[2024-02-21 17:00] LABS: Glucose, Whole Blood 229 mg/dL (60-115)
[2024-02-21] MEDS: Insulin Lispro 100 UNIT/ML 3 ML VIAL SUBCUT ×2 (17:01→21:51)
[2024-02-21] MEDS: Morphine Sulfate 2 MG/ML CARTRIDGE IVPUSH (20:18)
[2024-02-21] MEDS: Donepezil HCl 10 MG TABLET PO (20:19)
[2024-02-21] MEDS: Docusate Sodium 100 MG CAPSULE PO (20:19)
[2024-02-21 21:41] LABS: Glucose, Whole Blood 309 mg/dL (60-115)
[2024-02-22] VITALS (7 sets, daily range): BP systolic 126–153; BP diastolic 58–67; PULSE 79–97; RESP 16–20; TEMP 36.8–37.7; O2SAT 92–99
[2024-02-22] MEDS: 0.9 % Sodium Chloride Flush 3 ML SYRINGE IVFLUSH ×4 (01:43→20:23)
[2024-02-22 06:22] LABS: Hematocrit 38.2 % (37.0-47.0); Hemoglobin 13.1 g/dl (12.0-16.0); Mean Corpuscular HGB Conc 34.3 g/dl (31.0-35.0); Mean Corpuscular Hemoglobin 30.5 pg (27.0-33.0); Mean Corpuscular Volume 88.8 fL (80.0-98.0); Mean Platelet Volume 9.1 fL (9.4-12.3); Platelet Count 243 X10*3/uL (160-400); White Blood Count 10.1 X10*3/uL (4.8-10.8)
[2024-02-22 06:37] LABS: Anion Gap 13 (12-20); Blood Urea Nitrogen 16 mg/dL (9-16); Calcium 8.8 mg/dL (8.4-10.2); Carbon Dioxide 26 mmol/L (22-29); Chloride 102 mmol/L (96-108); Creatinine Clr Calc Pharmacy 49.1; Estimated Glomerular Filt Rate > 60; Glucose Random 255 mg/dL (60-115); Potassium 4.4 mmol/L (3.3-5.1); Sodium 137 mmol/L (135-145)
[2024-02-22 07:16] LABS: Glucose, Whole Blood 238 mg/dL (60-115)
[2024-02-22] MEDS: Valsartan 80 MG TABLET PO (09:00)
[2024-02-22] MEDS: Insulin Lispro 100 UNIT/ML 3 ML VIAL SUBCUT ×4 (09:00→23:16)
[2024-02-22] MEDS: Multivitamin TABLET 1 TAB PO (09:00)
[2024-02-22] MEDS: Docusate Sodium 100 MG CAPSULE PO ×2 (09:00→20:22)
[2024-02-22] MEDS: Loratadine 10 MG TABLET PO (09:00)
[2024-02-22] MEDS: oxyCODONE HCl Immed Release 5 MG TABLET PO ×3 (09:00→23:15)
[2024-02-22] MEDS: polyethylene glycoL 3350 17 GM POWD.PACK PO ×2 (09:01→20:22)
--- NOTE | 2024-02-22 09:05 | HO.POSTANES ---
Post Anesthesia Evaluation Post Anesthesia Evaluation Date of Service: 02/22/24 Vital Signs: Vital Signs Temp Pulse Resp BP Pulse Ox O2 Del Method 02/22/24 07:43 99.2 F 83 20 136/64 93 Room Air 02/22/24 04:00 99.1 F 87 18 136/61 95 Room Air 02/22/24 00:00 99.9 F 80 18 153/65 H 94 Room Air Anesthesia: General LMA Mental Status: Awake Pain Control: Satisfactory Nausea/Vomiting: None Hydration: Adequate Anesthesia-Related Issues: No Anes. Related Issues
--- NOTE | 2024-02-22 09:35 | PM.PNORT ---
Subjective Subjective Date of Service: 02/22/24 Interval history: POD 1 s/p ORIF left elbow no overnight events resting in bed has baseline dementia Physical Exam Vital Signs: Vital Signs: Last Vital Signs Temp 99.2 F 02/22/24 07:43 Pulse 83 02/22/24 07:43 Resp 20 02/22/24 07:43 BP 136/64 02/22/24 07:43 Pulse Ox 93 02/22/24 07:43 O2 Del Method Room Air 02/22/24 07:43 O2 Flow Rate 2 02/21/24 16:20 BMI result Body Mass Index 26.6 Extrem: Other: left elbow splint c/d/i she is able to move digits and cap refill brisk Procedures Date of Service Date of Service: 02/22/24 Progress Note: A&P Assessment and plan (1) Elbow fracture, left: Status: Acute Assessment and Plan: keep splint clean dry and intact no lifting pain mgmnt f/u 1 wk ortho d.c pending med clearance Time Spent With Patient Time: Total time managing care of this patient today ____ minutes. Quality Stroke Does the patient have a stroke diagnosis?: No VTE Prior VTE?: No VTE Risk Level:: Medical - moderate - high VTE Device Contraindication: N/A - Device Ordered VTE Drug Contraindication: N/A - Med Ordered
[2024-02-22 10:59] LABS: Glucose, Whole Blood 351 mg/dL (60-115)
--- NOTE | 2024-02-22 11:15 | HO.PM.IMPN ---
Subjective Subjective Date of Service: 02/22/24 Interval History: Seen and examined this morning Follow-up for left elbow fracture status post surgery February 20 Patient observed sitting up in bed, appears comfortable, eating breakfast Alert and confused with no complaints at this time Review of Systems Review of Systems: Yes all other systems are reviewed and are negative Constitutional Constitutional: Denies chills and Denies fever(s) Cardiovascular Cardiovascular: Denies chest pain, Denies palpitations and Denies dyspnea Respiratory Respiratory: Denies dyspnea Gastrointestinal Gastrointestinal: Denies abdominal pain Endocrine Endocrine: Denies palpitations Physical Exam Vital Signs: Vital Signs: Last Vital Signs Temp 99.2 F 02/22/24 07:43 Pulse 83 02/22/24 10:50 Resp 20 02/22/24 07:43 BP 136/64 02/22/24 10:50 Pulse Ox 93 02/22/24 10:50 O2 Del Method Room Air 02/22/24 07:43 O2 Flow Rate 2 02/21/24 16:20 BMI result Body Mass Index 26.6 Const: Other: Constitutional-patient observed sitting up in bed, she is awake, alert and in no acute distress. She is oriented to person only (this is her baseline per her son) Cardiovascular regular rate and rhythm Pulmonary-breathing easy no respiratory distress, no accessory muscle use GI abdomen is soft, nontender, nondistended Musculoskeletal-left upper extremity in cast and sling; able to move bilateral lower extremities and right upper extremity freely Neuro-cranial nerves 2-12 are grossly intact there are no focal neurological deficits appreciated Eyes: Other: bruising around left eye, Extrem: Other: left arm in splint/sling; fingers warm Objective Data Active Medications Acetaminophen (Acetaminophen 325 Mg Tablet) 650 mg PO Q6H PRN PRN Reason: Pain, Mild (Pain Scale 1-3) Last Admin: 02/19/24 21:46 Dose: 650 mg Documented By: VARINDER Bisacodyl (Bisacodyl 10 Mg Supp.Rect) 10 mg [place] BEDTIME PRN PRN Reason: Constipation Docusate Sodium (Docusate Sodium 100 Mg Capsule) 100 mg PO BID [facility] Last Admin: 02/22/24 09:00 Dose: 100 mg Documented By: BLAS Donepezil HCl (Donepezil Hcl 10 Mg Tablet) 10 mg PO BEDTIME [facility] Last Admin: 02/21/24 20:19 Dose: 10 mg Documented By: DIONNE Enoxaparin Sodium (Enoxaparin Sodium 40 Mg/0.4 Ml Syringe) 40 mg SUBCUT Q24H [facility] Last Admin: 02/21/24 16:56 Dose: 40 mg Documented By: BLAS Glucose (Glucose Gel 15 Gm Gel..Gram.) 15 gm PO Q15M PRN; Protocol PRN Reason: per Hypoglycemia Standing Ord. Dextrose (D10) 250 mls @ 750 mls/hr IV Q15M PRN; Protocol PRN Reason: per Hypoglycemia Standing Ord. Insulin Human Lispro (Insulin Lispro 100 Unit/Ml 3 Ml Vial) 0 unit SUBCUT QIDACHS [facility]; Protocol Last Admin: 02/22/24 09:00 Dose: 4 unit Documented By: BLAS Loratadine (Loratadine 10 Mg Tablet) 10 mg PO DAILY [facility] Last Admin: 02/22/24 09:00 Dose: 10 mg Documented By: BLAS Memantine (Memantine Hcl 10 Mg Tablet) 10 mg PO BID [facility] Morphine Sulfate (Morphine Sulfate 2 Mg/Ml Cartridge) 2 mg IVPUSH Q4H PRN; Protocol PRN Reason: Pain, Severe (Pain Scale 7-10) Last Admin: 02/21/24 20:18 Dose: 2 mg Documented By: DIONNE Multivitamins/Vitamin C (Multivitamin Tablet) 1 tab PO DAILY [facility] Last Admin: 02/22/24 09:00 Dose: 1 tab Documented By: BLAS Ondansetron HCl (Ondansetron Hcl 4 Mg/2 Ml Vial) 4 mg IVPUSH Q8H PRN PRN Reason: Nausea and Vomiting Oxycodone HCl (Oxycodone Hcl Immed Release 5 Mg Tablet) 5 mg PO Q6H PRN PRN Reason: Pain, Moderate(Pain Scale 4-6) Last Admin: 02/22/24 09:00 Dose: 5 mg Documented By: BLAS Polyethylene Glycol (Polyethylene Glycol 3350 17 Gm Powd.Pack) 17 gm PO DAILY [facility] Last Admin: 02/22/24 09:01 Dose: 17 gm Documented By: BLAS Sodium Chloride (0.9 % Sodium Chloride Flush 3 Ml Syringe) 3 ml IVFLUSH QSHIFT [facility] Last Admin: 02/22/24 09:01 Dose: 3 ml Documented By: BLAS Valsartan (Valsartan 80 Mg Tablet) 80 mg PO DAILY [facility]; Protocol Last Admin: 02/22/24 09:00 Dose: 80 mg Documented By: BLAS Labs 02/22/24 05:52 02/22/24 05:52 Labs: Laboratory Results - last 24 hr 02/21/24 02/21/24 02/22/24 16:54 21:33 05:52 MCV 88.8 MCH 30.5 MCHC 34.3 RDW 12.0 Plt Count 243 MPV 9.1 L Absolute Nucleated RBC 0.000 Nucleated RBC % (auto) 0.0 Anion Gap 13 Estim Creat Clear Calc 49.1 Estimated GFR > 60 POC Glucose 229 H 309 H Random Glucose 255 H Calcium 8.8 02/22/24 02/22/24 07:03 10:50 MCV MCH MCHC RDW Plt Count MPV Absolute Nucleated RBC Nucleated RBC % (auto) Anion Gap Estim Creat Clear Calc Estimated GFR POC Glucose 238 H 351 H* Random Glucose Calcium Assessment and Plan (1) Elbow fracture, left: Status: Acute Plan This is an 79-year-old female with history of Alzheimer's dementia, diabetes, high blood pressure, cholesterol who was brought to the emergency department after she was found outside her home lying on the ground and found to have proximal and lateral dislocation of the radius and ulna at the elbow with a comminuted fracture of the lateral epicondyle of the distal humerus and displaced fracture of the radial head Left elbow fracture Reduced in the ED Orthopedic consult> s/p ORIF left capitellum and LCL avulsion repair Pain management; bowel regimen Unwitnessed fall Likely mechanical, no arrythmia or syncopal episodes during hospital stay so far continue to monitor on telemetry PT eval pending Leukocytosis. Resolved Likely reactive secondary to fracture/fall Patient afebrile, no evidence of infection Type 2 diabetes Hold metformin - resume on d/c Diabetic diet Follow POCs, insulin sliding scale as needed Hypertension Continue valsartan HLD continue statin Alzheimer's dementia continue donepezil DVT prophylaxis-Lovenox Code status-DNR/DNI per family at the bedside Attending Dr. Garcia Disposition-likely rehab, PT eval pending continue hospital stay due to fall, syncope evaluation, specialist evaluation and surgery for complex fracture Quality Stroke Does the patient have a stroke diagnosis?: No VTE Prior VTE?: No VTE Risk Level:: Medical - moderate - high VTE Device Contraindication: N/A - Device Ordered VTE Drug Contraindication: N/A - Med Ordered
[2024-02-22] MEDS: Memantine HCl 10 MG TABLET PO ×2 (12:15→20:22)
[2024-02-22 15:20] LABS: Glucose, Whole Blood 290 mg/dL (60-115)
[2024-02-22] MEDS: Enoxaparin Sodium 40 MG/0.4 ML SYRINGE SUBCUT (16:24)
[2024-02-22] MEDS: Donepezil HCl 10 MG TABLET PO (20:22)
[2024-02-22 21:48] LABS: Glucose, Whole Blood 260 mg/dL (60-115)
[2024-02-23] VITALS: BP 138/64; PULSE 75; RESP 20; TEMP 37.1; O2SAT 92
[2024-02-23 04:00] VITALS: BP 134/63; PULSE 81; RESP 18; TEMP 36.9; O2SAT 92
[2024-02-23] MEDS: oxyCODONE HCl Immed Release 5 MG TABLET PO (05:54)
[2024-02-23] MEDS: Morphine Sulfate 2 MG/ML CARTRIDGE IVPUSH (06:49)
[2024-02-23 07:23] LABS: Glucose, Whole Blood 209 mg/dL (60-115)
[2024-02-23 07:27] VITALS: BP 136/63; PULSE 71; RESP 18; TEMP 37.2; O2SAT 95
[2024-02-23] MEDS: Multivitamin TABLET 1 TAB PO (07:45)
[2024-02-23] MEDS: polyethylene glycoL 3350 17 GM POWD.PACK PO (07:45)
[2024-02-23] MEDS: Memantine HCl 10 MG TABLET PO (07:45)
[2024-02-23] MEDS: Valsartan 80 MG TABLET PO (07:45)
[2024-02-23] MEDS: 0.9 % Sodium Chloride Flush 3 ML SYRINGE IVFLUSH ×2 (07:45→16:36)
[2024-02-23] MEDS: Loratadine 10 MG TABLET PO (07:45)
[2024-02-23] MEDS: Docusate Sodium 100 MG CAPSULE PO (07:45)
[2024-02-23] MEDS: Insulin Lispro 100 UNIT/ML 3 ML VIAL SUBCUT ×3 (07:46→16:35)
--- NOTE | 2024-02-23 08:12 | PM.PNORT ---
Subjective Subjective Date of Service: 02/23/24 Interval history: POD 2 s/p ORIF left elbow no overnight events resting in bed has baseline dementia Physical Exam Vital Signs: Vital Signs: Last Vital Signs Temp 98.9 F 02/23/24 07:27 Pulse 71 02/23/24 07:27 Resp 18 02/23/24 07:27 BP 136/63 02/23/24 07:27 Pulse Ox 95 02/23/24 07:27 O2 Del Method Room Air 02/23/24 07:27 O2 Flow Rate 2 02/21/24 16:20 BMI result Body Mass Index 26.6 Extrem: Other: left elbow splint c/d/i she is able to move digits and cap refill brisk Procedures Date of Service Date of Service: 02/23/24 Progress Note: A&P Assessment and plan (1) Elbow fracture, left: Status: Acute Assessment and Plan: keep splint clean dry and intact no lifting pain mgmnt f/u 1 wk ortho d.c pending med clearance Time Spent With Patient Time: Total time managing care of this patient today ____ minutes. Quality Stroke Does the patient have a stroke diagnosis?: No VTE Prior VTE?: No VTE Risk Level:: Medical - moderate - high VTE Device Contraindication: N/A - Device Ordered VTE Drug Contraindication: N/A - Med Ordered
[2024-02-23 10:39] VITALS: BP 136/63; PULSE 71; O2SAT 95
[2024-02-23 11:06] LABS: Glucose, Whole Blood 317 mg/dL (60-115)
[2024-02-23 11:13] VITALS: BP 114/53; PULSE 83; RESP 18; TEMP 37; O2SAT 94
--- NOTE | 2024-02-23 15:36 | PM.DS ---
DS: Providers Provider Date of Service: 02/23/24 Date of admission: 02/18/24 15:27 Date of discharge: 02/23/24 Primary care physician: Lisy Gonzalez MD Consults: 02/18/24 15:27 Consult to Orthopedics Routine Consulting Provider: [facility] Orthopedic Surgeons Reason for consultation: elbow fracture Has provider been notified: Yes Attending physician on discharge: Ramses Garcia Discharging clinician: Rita Nguyen DS: Diagnosis Discharge Diagnosis (1) Elbow fracture, left: Status: Acute DS: Summary Hospital Course Hospital Course: From H&P on the day of admission This is an 79-year-old female with history of dementia who was brought to the emergency department after being found outside of her home on the ground. History was primarily obtained from her son at the bedside. Patient was last seen around 17:00 on the day prior to admission. Around 930 in the morning on the day of admission family got a phone call by the police at 09:30 saying that she was found on the ground. She is unable to provide any history due to her history of dementia. In the emergency department she was noted to have abnormality of her left arm, imaging was consistent with proximal and lateral dislocation of the radius and ulna at the elbow with comminuted fracture of the lateral epicondyle of the distal humerus and a displaced fracture of the radial head. This was reduced in the emergency department. Orthopedic surgery recommends surgical intervention in the coming days. Per family patient has been in her usual state of health, eating and drinking okay. She lives alone but is dependent for all of her ADLs. The patient has no specific complaints at this time. She received a dose of IV morphine for pain control and will be admitted to the hospital for further management. Left elbow fracture Reduced in the ED seen by ortho, she underwent ORIF left capitellum and LCL avulsion repair on 02/20. She has had an uncomplicated postoperative course. Per orthopedic surgery keep splint clean and dry, no lifting and follow-up with Orthopedic surgery in 1 week. Unwitnessed fall Likely mechanical, no arrythmia or syncopal episodes during hospital stay so far. Evaluated by Physical therapy who recommended prison facility. Chronic medical conditions Type 2 diabetes-continue metformin. Hypertension continue valsartan Hyperlipidemia continue statin Alzheimer's dementia continue donepezil Time Attestation Discharge Coordination Time (in mins): 36 Quality: Safe Use of Opioids Does Pt have an Active Cancer Diagnosis on the Problem List?: No Quality: Stroke Does the patient have a stroke diagnosis?: No Physical Exam Vital Signs: Vital Signs: Last Vital Signs Temp 98.6 F 02/23/24 11:13 Pulse 83 02/23/24 11:13 Resp 18 02/23/24 11:13 BP 114/53 L 02/23/24 11:13 Pulse Ox 94 02/23/24 11:13 O2 Del Method Room Air 02/23/24 11:13 O2 Flow Rate 2 02/21/24 16:20 BMI result Body Mass Index 26.6 Const: Other: Constitutional-patient observed sitting up in bed, she is awake, alert and in no acute distress. She is oriented to person only (this is her baseline per her son) Cardiovascular regular rate and rhythm Pulmonary-breathing easy no respiratory distress, no accessory muscle use GI abdomen is soft, nontender, nondistended Musculoskeletal-left upper extremity in cast and sling; able to move bilateral lower extremities and right upper extremity freely Neuro-cranial nerves 2-12 are grossly intact there are no focal neurological deficits appreciated Eyes: Other: bruising around left eye, Extrem: Other: left arm in splint/sling; fingers warm DS: Data Data Completed and Pending Labs on day of discharge: Laboratory Results - last 24 hr 02/22/24 02/23/24 02/23/24 21:35 07:19 10:59 POC Glucose 260 H 209 H 317 H Discharge Plan Discharge Anticipated Discharge Date/Time: 02/23/24 15:45 Patient Disposition: [facility] Discharge Diagnosis: Left elbow fracture Referrals: [facility] [Outside] - 1 Week Lisy Gonzalez MD [Primary Care Provider] - 1 Week Heather Longoria PA-C [Physician Physical Therapy Professor] - 1 Week Discharge Medications: New bisacodyl [Gentle Laxative (bisacodyl)] 10 mg Suppository 10 mg DC BEDTIME PRN (Reason: Constipation) Qty: 12 0RF docusate sodium 100 mg Capsule 100 mg PO BID Qty: 10 0RF oxycodone 5 mg tablet 5 mg PO Q8H PRN (Reason: pain) Qty: 10 0RF Rx Instructions: Partial Fill upon patient request. polyethylene glycol 3350 17 gram Powder In Packet 17 g PO BID Qty: 14 0RF Continued atorvastatin 20 mg tablet 20 mg PO DAILY donepezil 10 mg tablet 10 mg PO BEDTIME valsartan 80 mg tablet 80 mg PO DAILY metformin 500 mg tablet extended release 24 hr 1,500 mg PO DAILY@1800 ciclopirox 0.77 % cream 1 appl topical BID memantine 21 mg capsule,sprinkle,ER 24hr 21 mg PO DAILY multivitamin Tablet 1 tab PO DAILY loratadine 10 mg Tablet 10 mg PO DAILY Discharge Orders: Discharge Order (Routine); Ordered 02/23/24 Ordered By: Rita Nguyen Activity on Discharge: As tolerated Stand Alone Forms: Patient Portal Discharge page Print Language: Bengali Care Plan Goals: See below Health Concerns: Left elbow fracture status post ORIF left elbow Plan of Treatment: Oxycodone as needed for severe pain Bowel regimen to prevent constipation while getting treated with opiates Outpatient follow-up Orthopedic surgery in 1 week Keep splint clean dry and intact No lifting Assessment: See discharge summary
--- NOTE | 2024-02-23 15:54 | MHC.CM.PN ---
Addendum entered by Angela Reeder 02/23/24 15:56: IMM 02/23/24 Original Note: SNF preferences obtained and referrals sent for STR. [facility] offered a bed. The family accepts the bed. Insurance auth received by [facility]. BLS is booked for 4:30pm brain picker.
[2024-02-23 16:00] VITALS: BP 118/72; PULSE 80; RESP 18; TEMP 37; O2SAT 94
[2024-02-23 16:04] LABS: Glucose, Whole Blood 224 mg/dL (60-115)
[2024-02-23] MEDS: Enoxaparin Sodium 40 MG/0.4 ML SYRINGE SUBCUT (16:35)
--- NOTE | 2024-03-01 17:20 | W.PM.OPN ---
Operative Note Operative Note Date of Service: 02/21/24 Narrative: Date of Service: 02/21/24 Pre-op diagnosis: Left elbow fracture/dislocation Post-op diagnosis: same Procedure: ORIF left capitellum and LCL avulsion repair Surgeon: Angel Marcus MD Anesthesia: GETA Was an Hand Packer/Packager used for this Procedure?: Yes Hand Packer/Packager: Briseida Olmstead Estimated blood loss (mL): 75 IV fluids (mL): 750 Pathology: none sent Condition: stable Disposition: PACU Procedure in detail: Patient was brought to the operating room and placed supine on the surgical table. She was prepped and draped in standard sterile fashion and a time out was called to identify proper site, proper procedure and IV antibiotics per weight were administered. I began by making a posterolateral incision over the lateral elbow. Full thickness flaps were taken down to the lateral epicondyle and the anterior third of the radial head. The elbow was markedly unstable and there was a large capitellar fragment that had flipped into the ulnartrochlear articulation. I removed multiple loose fragment and then reduced the capitellar fragment. This partially stabilized the elbow. The LCL was avulsed off the lateral epicondyle as well. I used a k wire to provisionally reduce the capitellum and then used two cannulated headless compression screw to reduce the fragment. I was satisfied that the screws were intra osseus and the reduction was near anatomic and I was satisfied with the ROM and the screw heads were buried. The lateral epicondyle was then addressed. This was fragmented and I was unable to get any purchase. Therefore I used a fiber wire to compress the fragments to the lateral condyle. This was stable clinically but there were multiple small bony fragments laterally on fluoro. I took the elbow through a full ROM and it was stable. I removed all instrumentation and took my final radiographs. I was satisfied with the stability and reduction. The wound was irrigated and closed with absorbable suture and gigi. A posterior, well padded splint was then applied. The pateitn was extubated and brought to the recovery room in stable condition. There were no known complications.
== END 2024-02-23 17:46 | disposition skilled nursing facility (03) | DRG 494 ==
LOC: HO.ED 02-18 08:16 → HO.EDOVER 02-18 15:39 → HO.IMC 02-19 00:28
PROVIDERS: Nurse Practitioner Acute Care; Nurse Practitioner Family; Orthopaedic Surgery; Admitting Provider Physician Assistant Medical; Emergency Provider Emergency Medicine; PCP Internal Medicine; Visit Provider Physician Assistant Medical
PROC: 0PSG04Z Reposition Left Humeral Shaft with Internal Fixation Device, Open Approach (ICD-10-PCS; principal; 2024-02-21 14:00)
DX: S42.432A Displaced fracture (avulsion) of lateral epicondyle of left humerus, initial encounter for closed fracture (principal); S52.122A Displaced fracture of head of left radius, initial encounter for closed fracture; W19.XXXA Unspecified fall, initial encounter; G30.9 Alzheimer's disease, unspecified; F02.80 Dementia in other diseases classified elsewhere, unspecified severity, without behavioral disturbance, psychotic disturbance, mood disturbance, and anxiety; E11.9 Type 2 diabetes mellitus without complications; E78.5 Hyperlipidemia, unspecified; Z79.84 Long term (current) use of oral hypoglycemic drugs; Z79.899 Other long term (current) drug therapy
CPT/HCPCS: 36415; 70450; 72125; 73060; 73070; 73090; 73200; 80048; 80076; 81001; 82550; 82947; 84484; 85025; 85027; 86850; 86900; 86901; 87086; 93005; 97116; 97162; 99285; C1713; J0690; J1170; J1650; J2270; J2405; J2704; J3010

== ENCOUNTER → 2024-02-17 22:43 | Outpatient (BNV) | payer MEDICARE, SELFPAY | PROVIDERS: Emergency Provider Emergency Medicine; PCP Internal Medicine; Visit Provider Internal Medicine | DX: R94.31 Abnormal electrocardiogram [ECG] [EKG] (principal) | CPT/HCPCS: 93010 ==

== ENCOUNTER → 2024-02-18 15:27 | Outpatient (BNV) | payer MEDICARE, SELFPAY | PROVIDERS: Admitting Provider Physician Assistant Medical; Emergency Provider Emergency Medicine; PCP Internal Medicine; Visit Provider Physician Assistant | DX: S42.402A Unspecified fracture of lower end of left humerus, initial encounter for closed fracture (principal); R29.6 Repeated falls; F03.90 Unspecified dementia, unspecified severity, without behavioral disturbance, psychotic disturbance, mood disturbance, and anxiety | CPT/HCPCS: 24343; 24579; 99024; 99212; 99223 ==

== ENCOUNTER → 2024-02-18 15:27 | Outpatient (BNV) | payer MEDICARE, SELFPAY | PROVIDERS: Admitting Provider Physician Assistant Medical; Emergency Provider Emergency Medicine; PCP Internal Medicine; Visit Provider Nurse Practitioner Acute Care | DX: S42.402A Unspecified fracture of lower end of left humerus, initial encounter for closed fracture (principal) | CPT/HCPCS: 99223; 99232; 99239 ==

== ENCOUNTER 2024-03-06 06:12 | Outpatient (REF) | payer MEDICARE, SELFPAY ==
[2024-03-06 06:15] LABS: MANUAL DIFF FLAG NO
[2024-03-06 06:31] LABS: Basophils Absolute Auto 0.1 X10*3/uL (0.0-0.2); Basophils Percent Auto 0.8 % (0-2); Eosinophils Absolute Auto 0.4 X10*3/uL (0.0-0.4); Eosinophils Percent Auto 4.6 % (0-4); Hematocrit 38.4 % (37.0-47.0); Hemoglobin 13.1 g/dl (12.0-16.0); Imm Gran Abs Auto 0.04 X10*3/uL (0.00-0.03); Imm Gran Pct Auto 0.5 % (0.0-0.4); Lymphocytes Absolute Auto 2.5 X10*3/uL (1.2-4.9); Lymphocytes Percent Auto 31.8 % (20-40); Mean Corpuscular HGB Conc 34.1 g/dl (31.0-35.0); Mean Corpuscular Hemoglobin 30.3 pg (27.0-33.0); Mean Corpuscular Volume 88.7 fL (80.0-98.0); Monocytes Absolute Auto 0.6 X10*3/uL (0.1-1.2); Monocytes Percent Auto 8.2 % (2-11); Neutrophils Absolute Auto 4.2 x10*3/uL (2.0-8.3); Neutrophils Percent Auto 54.1 % (45-73); Platelet Count 322 X10*3/uL (160-400); Red Blood Count 4.33 X10*6/uL (4.20-5.50); Red Cell Distribution Width 11.9 % (11.0-16.0); White Blood Count 7.8 X10*3/uL (4.8-10.8)
[2024-03-06 06:52] LABS: Alanine Aminotransferase 16 U/L (0-31); Albumin Level 3.2 g/dL (3.5-5.0); Alkaline Phosphatase 92 U/L (39-117); Anion Gap 12 (12-20); Aspartate Amino Transferase 12 U/L (5-31); Bilirubin Total 0.3 mg/dL (0.0-1.0); Blood Urea Nitrogen 14 mg/dL (9-16); Calcium 8.6 mg/dL (8.4-10.2); Carbon Dioxide 25 mmol/L (22-29); Chloride 107 mmol/L (96-108); Estimated Average Glucose 183 mg/dL; Estimated Glomerular Filt Rate > 60; Glucose Random 128 mg/dL (60-115); Potassium 4.2 mmol/L (3.3-5.1); Sodium 140 mmol/L (135-145); Total Protein 5.7 g/dL (6.5-8.0)
== END 2024-03-06 06:13 | disposition home or self-care (01) ==
LOC: HO.MMNH2L 06:12
PROVIDERS: Visit Provider Hospitalist
DX: S52.112D Torus fracture of upper end of left radius, subsequent encounter for fracture with routine healing (principal); Z13.1 Encounter for screening for diabetes mellitus; Z13.89 Encounter for screening for other disorder
CPT/HCPCS: 36415; 80053; 83036; 85025

== ENCOUNTER 2024-03-07 06:47 | Outpatient (REF) | payer MEDICARE, SELFPAY ==
--- NOTE | ~2024-03-07 | XR_ITS ---
EXAMINATION: XR ELBOW, LEFT CLINICAL INFORMATION: Pain in left elbow, splint off. COMPARISON: Fluoroscopic images of 02/21/2024, CT 02/19/2024, x-ray 02/18/2024. TECHNIQUE: AP, lateral, and oblique views of the left elbow. FINDINGS: Expected postsurgical changes with soft tissue swelling, multiple surgical gigi and placement of 2 screws status post ORIF of the previously noted proximal and lateral dislocation of the radius and ulna at the elbow with comminuted fractures of the lateral epicondyle of the distal humerus and displaced fracture of the radial head. There is improved alignment. Hardware appears intact. XR/XR elbow LT min 3V IMPRESSION: Status post ORIF of previously noted proximal and lateral dislocation of the radius and ulna at the elbow with comminuted fractures of the lateral epicondyle of the distal humerus and displaced fracture of the radial head. There is improved alignment. Hardware appears intact.
== END 2024-03-07 06:48 | disposition home or self-care (01) ==
LOC: HO.HOSX 06:47
PROVIDERS: Visit Provider Physician Assistant
DX: M25.522 Pain in left elbow (principal); S42.402D Unspecified fracture of lower end of left humerus, subsequent encounter for fracture with routine healing; X58.XXXD Exposure to other specified factors, subsequent encounter
CPT/HCPCS: 73080; 99212

== ENCOUNTER 2024-03-07 14:16 | Outpatient (AMB) | payer MEDICARE, SELFPAY ==
--- NOTE | 2024-03-07 14:20 | MHC.OFFVIS ---
Intake Visit Reasons: PO-LT elbow ORIF, 02/21/24 NE Intake Note: Jackie an 79 year old female who presents today in a stretcher for a post operative left elbow ORIF on 02/21/24. Xrays updated. Patient reports she is doing well, states pain has improved. Allergies No Known Allergies Allergy (Verified 03/07/24 14:43) Medication List - Last Reconciled 03/07/24 by Heather Longoria PA-C atorvastatin 20 mg PO DAILY bisacodyl (Gentle Laxative (bisacodyl)) 10 mg [place] BEDTIME PRN ciclopirox 0.77% 1 appl topical BID docusate sodium 100 mg PO BID donepezil 10 mg PO BEDTIME loratadine 10 mg PO DAILY memantine 21 mg PO DAILY metformin ER 1,500 mg PO DAILY@1800 multivitamin 1 tab PO DAILY oxycodone 5 mg PO Q8H PRN polyethylene glycol 3350 17 grams PO BID valsartan 80 mg PO DAILY HPI HPI PO-LT elbow ORIF, 02/21/24 NE: Details: 79-year-old female who returns to the office today in a stretcher for post-op left elbow ORIF, 02/21/[address] Marcus. She states she has improvement in her pain and is doing well overall. She has no other concerns today. [facility] Medical History (Updated 03/02/24 @ 00:03 by Cristal Ruelas) Dementia Social History Household Members: Unknown / Unable to assess Housing: Unknown / Unable to assess Patient Tobacco Use Status: Never used Tobacco Advance Directives Date on File: 02/17/24 service: No Review of Systems Const All systems reviewed & are unremarkable except as noted in HPI and below Physical Exam Extrem Other: Left elbow: Incision clean, dry and intact. No redness or drainage. ROM is neutral to 30 degrees without pain. NVI. Results Reviewed Results Reviewed: Xrays were obtained in the office today and personally reviewed by me of the left elbow show intact hardware Assessment & Plan Assessment & Plan (1) Elbow fracture, left: Code(s): S42.402A - Unspecified fracture of lower end of left humerus, initial encounter for closed fracture Category: Medical Qualifiers: Encounter type: initial encounter Fracture type: closed Qualified Code(s): S42.402A - Unspecified fracture of lower end of left humerus, initial encounter for closed fracture Plan Dr. Marcus was available to see the patient with me today. [place] removed today, steri strips applied. She was placed in a elbow ROM brace 0-30 degrees. She will avoid any type of lifting, pushing, pulling, or carrying for about 6 weeks postop. She will see me back in 6 weeks with new x-rays, sooner if needed. Orders: Orders XR elbow LT min 3V Today M25.522 - Pain in left elbow Patient Instructions: Scribed for Heather Longoria PA-C, by Josué Browning electromedical service engineer, on 03/07/2024 at 1:30 PM EST.? I, Heather Longoria PA-C, have personally reviewed and agree with the information entered by the scribe. Coding Level of Care Code Global (27803) Diagnoses Closed fracture of left elbow, initial encounter S42.402A Encounter type: initial encounter Fracture type: closed
== END 2024-03-07 15:50 | disposition home or self-care (01) ==
LOC: HO.HOS 14:17
PROVIDERS: PCP Internal Medicine; Visit Provider Physician Assistant
DX: S42.402A Unspecified fracture of lower end of left humerus, initial encounter for closed fracture (principal)
CPT/HCPCS: 99024

== ENCOUNTER 2024-03-11 05:50 | Outpatient (REF) | payer MEDICARE, SELFPAY ==
[2024-03-11 05:33] LABS: MANUAL DIFF FLAG NO
[2024-03-11 05:53] LABS: Basophils Percent Auto 0.6 % (0-2); Eosinophils Absolute Auto 0.3 X10*3/uL (0.0-0.4); Eosinophils Percent Auto 5.4 % (0-4); Hematocrit 38.3 % (37.0-47.0); Hemoglobin 12.8 g/dl (12.0-16.0); Imm Gran Abs Auto 0.02 X10*3/uL (0.00-0.03); Imm Gran Pct Auto 0.3 % (0.0-0.4); Lymphocytes Percent Auto 31.9 % (20-40); Mean Corpuscular HGB Conc 33.4 g/dl (31.0-35.0); Mean Corpuscular Volume 89.7 fL (80.0-98.0); Mean Platelet Volume 9.1 fL (9.4-12.3); Monocytes Absolute Auto 0.4 X10*3/uL (0.1-1.2); Neutrophils Absolute Auto 3.4 x10*3/uL (2.0-8.3); Neutrophils Percent Auto 54.8 % (45-73); Platelet Count 291 X10*3/uL (160-400); Red Blood Count 4.27 X10*6/uL (4.20-5.50); Red Cell Distribution Width 11.9 % (11.0-16.0); White Blood Count 6.3 X10*3/uL (4.8-10.8)
[2024-03-11 06:16] LABS: Anion Gap 17 (12-20); Blood Urea Nitrogen 9 mg/dL (9-16); Calcium 8.6 mg/dL (8.4-10.2); Carbon Dioxide 25 mmol/L (22-29); Chloride 103 mmol/L (96-108); Estimated Glomerular Filt Rate > 60; Glucose Random 145 mg/dL (60-115); Sodium 141 mmol/L (135-145)
== END 2024-03-11 05:51 | disposition home or self-care (01) ==
LOC: HO.MMNH2L 05:50
PROVIDERS: Visit Provider Hospitalist
DX: S52.122D Displaced fracture of head of left radius, subsequent encounter for closed fracture with routine healing (principal)
CPT/HCPCS: 36415; 80048; 85025

== ENCOUNTER 2024-03-18 07:03 | Outpatient (REF) | payer MEDICARE, SELFPAY ==
[2024-03-18 06:16] LABS: MANUAL DIFF FLAG NO
[2024-03-18 07:06] LABS: Basophils Percent Auto 0.7 % (0-2); Eosinophils Absolute Auto 0.3 X10*3/uL (0.0-0.4); Eosinophils Percent Auto 5.4 % (0-4); Hematocrit 38.9 % (37.0-47.0); Hemoglobin 12.9 g/dl (12.0-16.0); Imm Gran Abs Auto 0.01 X10*3/uL (0.00-0.03); Imm Gran Pct Auto 0.2 % (0.0-0.4); Lymphocytes Percent Auto 33.1 % (20-40); Mean Corpuscular HGB Conc 33.2 g/dl (31.0-35.0); Mean Corpuscular Hemoglobin 29.9 pg (27.0-33.0); Mean Platelet Volume 9.2 fL (9.4-12.3); Monocytes Absolute Auto 0.6 X10*3/uL (0.1-1.2); Monocytes Percent Auto 9.1 % (2-11); Neutrophils Absolute Auto 3.1 x10*3/uL (2.0-8.3); Neutrophils Percent Auto 51.5 % (45-73); Platelet Count 200 X10*3/uL (160-400); Red Blood Count 4.32 X10*6/uL (4.20-5.50); Red Cell Distribution Width 11.9 % (11.0-16.0); White Blood Count 6.1 X10*3/uL (4.8-10.8)
[2024-03-18 07:40] LABS: Anion Gap 14 (12-20); Blood Urea Nitrogen 14 mg/dL (9-16); Carbon Dioxide 25 mmol/L (22-29); Chloride 104 mmol/L (96-108); Estimated Glomerular Filt Rate > 60; Glucose Random 124 mg/dL (60-115); Sodium 139 mmol/L (135-145)
[2024-03-18 14:58] LABS: Estimated Average Glucose 180 mg/dL; Hemoglobin A1c % 7.9 % (<6.0)
== END 2024-03-18 07:04 | disposition home or self-care (01) ==
LOC: HO.MMNH2L 07:03
PROVIDERS: Visit Provider Hospitalist
DX: E11.9 Type 2 diabetes mellitus without complications (principal)
CPT/HCPCS: 36415; 80048; 83036; 85025

== ENCOUNTER 2024-03-22 10:31 | Outpatient (REF) | payer MEDICARE, SELFPAY ==
[2024-03-22 11:02] LABS: Anion Gap 15 (12-20); Blood Urea Nitrogen 16 mg/dL (9-16); Calcium 8.7 mg/dL (8.4-10.2); Carbon Dioxide 23 mmol/L (22-29); Chloride 106 mmol/L (96-108); Estimated Glomerular Filt Rate > 60; Glucose Random 119 mg/dL (60-115); Potassium 4.3 mmol/L (3.3-5.1); Sodium 140 mmol/L (135-145)
[2024-03-22 11:07] LABS: Estimated Average Glucose 180 mg/dL; Hemoglobin A1c % 7.9 % (<6.0)
== END 2024-03-22 10:32 | disposition home or self-care (01) ==
LOC: HO.MMNH2L 10:31
PROVIDERS: Visit Provider Hospitalist
DX: E11.9 Type 2 diabetes mellitus without complications (principal)
CPT/HCPCS: 36415; 80048; 83036

== ENCOUNTER 2024-03-23 09:22 | Outpatient (REF) | payer MEDICARE, SELFPAY ==
[2024-03-23 18:12] LABS: CDiff Gene PCR NEGATIVE (Negative)
== END 2024-03-23 09:23 | disposition home or self-care (01) ==
LOC: HO.MMNH2L 09:22
PROVIDERS: Visit Provider Hospitalist
DX: Z91.81 History of falling (principal)
CPT/HCPCS: 87493

== ENCOUNTER 2024-03-25 05:51 | Outpatient (REF) | payer MEDICARE, SELFPAY ==
[2024-03-25 05:32] LABS: MANUAL DIFF FLAG NO
[2024-03-25 06:01] LABS: Basophils Percent Auto 0.5 % (0-2); Eosinophils Absolute Auto 0.3 X10*3/uL (0.0-0.4); Hematocrit 38.8 % (37.0-47.0); Hemoglobin 13.3 g/dl (12.0-16.0); Imm Gran Abs Auto 0.03 X10*3/uL (0.00-0.03); Imm Gran Pct Auto 0.4 % (0.0-0.4); Lymphocytes Absolute Auto 2.8 X10*3/uL (1.2-4.9); Lymphocytes Percent Auto 35.8 % (20-40); Mean Corpuscular HGB Conc 34.3 g/dl (31.0-35.0); Mean Corpuscular Hemoglobin 30.2 pg (27.0-33.0); Mean Corpuscular Volume 88.2 fL (80.0-98.0); Mean Platelet Volume 9.3 fL (9.4-12.3); Monocytes Absolute Auto 0.6 X10*3/uL (0.1-1.2); Monocytes Percent Auto 7.3 % (2-11); Platelet Count 187 X10*3/uL (160-400); Red Cell Distribution Width 11.7 % (11.0-16.0); White Blood Count 7.7 X10*3/uL (4.8-10.8)
[2024-03-25 06:21] LABS: Anion Gap 14 (12-20); Blood Urea Nitrogen 12 mg/dL (9-16); Calcium 8.7 mg/dL (8.4-10.2); Carbon Dioxide 25 mmol/L (22-29); Chloride 105 mmol/L (96-108); Estimated Glomerular Filt Rate > 60; Glucose Random 128 mg/dL (60-115); Potassium 4.1 mmol/L (3.3-5.1); Sodium 140 mmol/L (135-145)
== END 2024-03-25 05:52 | disposition home or self-care (01) ==
LOC: HO.MMNH2L 05:51
PROVIDERS: Visit Provider Hospitalist
DX: S52.122D Displaced fracture of head of left radius, subsequent encounter for closed fracture with routine healing (principal)
CPT/HCPCS: 36415; 80048; 85025

== ENCOUNTER 2024-03-28 11:43 | Outpatient (REF) | payer MEDICARE, SELFPAY ==
[2024-03-28 13:03] LABS: CDiff Gene PCR NEGATIVE (Negative)
== END 2024-03-28 11:44 | disposition home or self-care (01) ==
LOC: HO.MMNH2L 11:43
PROVIDERS: Visit Provider Hospitalist
DX: G30.9 Alzheimer's disease, unspecified (principal); S52.112D Torus fracture of upper end of left radius, subsequent encounter for fracture with routine healing
CPT/HCPCS: 87493

== ENCOUNTER 2024-03-29 05:35 | Outpatient (REF) | payer MEDICARE, SELFPAY ==
[2024-03-29 05:38] LABS: MANUAL DIFF FLAG NO
[2024-03-29 05:48] LABS: Basophils Percent Auto 0.4 % (0-2); Eosinophils Absolute Auto 0.4 X10*3/uL (0.0-0.4); Eosinophils Percent Auto 4.9 % (0-4); Hematocrit 38.6 % (37.0-47.0); Hemoglobin 13.2 g/dl (12.0-16.0); Imm Gran Abs Auto 0.02 X10*3/uL (0.00-0.03); Imm Gran Pct Auto 0.3 % (0.0-0.4); Lymphocytes Absolute Auto 2.6 X10*3/uL (1.2-4.9); Lymphocytes Percent Auto 33.7 % (20-40); Mean Corpuscular HGB Conc 34.2 g/dl (31.0-35.0); Mean Corpuscular Hemoglobin 30.3 pg (27.0-33.0); Mean Corpuscular Volume 88.5 fL (80.0-98.0); Monocytes Absolute Auto 0.7 X10*3/uL (0.1-1.2); Monocytes Percent Auto 8.8 % (2-11); Neutrophils Percent Auto 51.9 % (45-73); Platelet Count 197 X10*3/uL (160-400); Red Blood Count 4.36 X10*6/uL (4.20-5.50); Red Cell Distribution Width 11.8 % (11.0-16.0); White Blood Count 7.7 X10*3/uL (4.8-10.8)
[2024-03-29 06:06] LABS: Anion Gap 14 (12-20); Blood Urea Nitrogen 11 mg/dL (9-16); Calcium 8.8 mg/dL (8.4-10.2); Carbon Dioxide 23 mmol/L (22-29); Chloride 107 mmol/L (96-108); Estimated Glomerular Filt Rate > 60; Glucose Random 122 mg/dL (60-115); Potassium 4.1 mmol/L (3.3-5.1); Sodium 140 mmol/L (135-145)
== END 2024-03-29 05:36 | disposition home or self-care (01) ==
LOC: HO.MMNH2L 05:35
PROVIDERS: Visit Provider Hospitalist
DX: S52.122D Displaced fracture of head of left radius, subsequent encounter for closed fracture with routine healing (principal); E78.5 Hyperlipidemia, unspecified
CPT/HCPCS: 36415; 80048; 85025

== ENCOUNTER 2024-04-01 05:57 | Outpatient (REF) | payer MEDICARE, SELFPAY ==
[2024-04-01 05:44] LABS: MANUAL DIFF FLAG NO
[2024-04-01 06:21] LABS: Basophils Percent Auto 0.4 % (0-2); Eosinophils Absolute Auto 0.3 X10*3/uL (0.0-0.4); Eosinophils Percent Auto 2.9 % (0-4); Hematocrit 38.4 % (37.0-47.0); Hemoglobin 13.1 g/dl (12.0-16.0); Imm Gran Abs Auto 0.03 X10*3/uL (0.00-0.03); Imm Gran Pct Auto 0.3 % (0.0-0.4); Lymphocytes Absolute Auto 1.8 X10*3/uL (1.2-4.9); Lymphocytes Percent Auto 18.8 % (20-40); Mean Corpuscular HGB Conc 34.1 g/dl (31.0-35.0); Mean Corpuscular Hemoglobin 30.1 pg (27.0-33.0); Mean Corpuscular Volume 88.3 fL (80.0-98.0); Mean Platelet Volume 9.2 fL (9.4-12.3); Monocytes Absolute Auto 0.9 X10*3/uL (0.1-1.2); Monocytes Percent Auto 9.5 % (2-11); Neutrophils Absolute Auto 6.4 x10*3/uL (2.0-8.3); Neutrophils Percent Auto 68.1 % (45-73); Platelet Count 227 X10*3/uL (160-400); Red Blood Count 4.35 X10*6/uL (4.20-5.50); Red Cell Distribution Width 11.9 % (11.0-16.0); White Blood Count 9.3 X10*3/uL (4.8-10.8)
[2024-04-01 06:55] LABS: Anion Gap 17 (12-20); Blood Urea Nitrogen 12 mg/dL (9-16); Calcium 8.6 mg/dL (8.4-10.2); Carbon Dioxide 22 mmol/L (22-29); Chloride 104 mmol/L (96-108); Estimated Glomerular Filt Rate > 60; Glucose Random 171 mg/dL (60-115); Sodium 139 mmol/L (135-145)
== END 2024-04-01 05:58 | disposition home or self-care (01) ==
LOC: HO.MMNH2L 05:57
PROVIDERS: Visit Provider Hospitalist
DX: S52.122D Displaced fracture of head of left radius, subsequent encounter for closed fracture with routine healing (principal)
CPT/HCPCS: 36415; 80048; 85025

== ENCOUNTER 2024-04-04 11:42 | Outpatient (REF) | payer MEDICARE, SELFPAY ==
--- NOTE | ~2024-04-04 | XR_ITS ---
EXAMINATION: XR ELBOW, LEFT CLINICAL INFORMATION: Elbow pain. COMPARISON: None available. TECHNIQUE: AP, lateral, and oblique views of the left elbow. FINDINGS: Status post ORIF of a comminuted fracture of the lateral epicondyle, with 2 screws present, with similar position and alignment. Redemonstrated is a displaced radial acute fracture. There are ossifications along the lateral joint space, more prominent from previous. There are calcification/ossifications in the medial and anterior aspects of the joint, and along the anterior aspect of the elbow joint, increased from previous. Soft tissue swelling. Positioning limits evaluation for joint effusion. XR/XR elbow LT min 3V IMPRESSION: Status post ORIF of a comminuted lateral epicondyle fracture. Intact hardware. Calcifications/ossifications along the lateral, medial and anterior aspects of the elbow joint, increased from previous. Study is assigned for dictation on April 25, 2024
== END 2024-04-04 11:43 | disposition home or self-care (01) ==
LOC: HO.HOSX 11:42
PROVIDERS: Visit Provider Physician Assistant
DX: S42.402D Unspecified fracture of lower end of left humerus, subsequent encounter for fracture with routine healing (principal)
CPT/HCPCS: 73080; 99212

== ENCOUNTER 2024-04-04 14:27 | Outpatient (AMB) | payer MEDICARE, SELFPAY ==
--- NOTE | 2024-04-04 14:46 | MHC.OFFVIS ---
Intake Visit Reasons: PO- ORIF left elbow 02/20/26 NE Intake Note: Jackie an 79 year old female who presents today for a post operative visit s/p left elbow ORIF on 02/21/24 NE. Patient reports she is doing well, she denies any pain. Patient daughter states patient has been taking of brace and facility was unaware how to reapply brace. Allergies No Known Allergies Allergy (Verified 03/07/24 14:43) Medication List - Last Reconciled 04/04/24 by Heather Longoria PA-C atorvastatin 20 mg PO DAILY bisacodyl (Gentle Laxative (bisacodyl)) 10 mg [place] BEDTIME PRN ciclopirox 0.77% 1 appl topical BID docusate sodium 100 mg PO BID donepezil 10 mg PO BEDTIME loratadine 10 mg PO DAILY memantine 21 mg PO DAILY metformin ER 1,500 mg PO DAILY@1800 multivitamin 1 tab PO DAILY oxycodone 5 mg PO Q8H PRN polyethylene glycol 3350 17 grams PO BID valsartan 80 mg PO DAILY HPI HPI PO- ORIF left elbow 02/20/26 NE: Details: 79-year-old female who returns to the office today with her daughter for post-op left elbow ORIF, 02/21/[address] Marcus. She states she has no pain and is doing well overall. Her daughter states patient was taking off brace and the facility was unaware how to reapply the brace. [facility] Medical History (Updated 03/02/24 @ 00:03 by Cristal Ruelas) Dementia Social History Household Members: Unknown / Unable to assess Housing: Unknown / Unable to assess Patient Tobacco Use Status: Never used Tobacco Advance Directives Date on File: 02/17/24 service: No Review of Systems Const All systems reviewed & are unremarkable except as noted in HPI and below Physical Exam Extrem Other: Left elbow: Incision clean, dry and intact. No redness or drainage. ROM is neutral to 30 degrees without pain. NVI. Assessment & Plan Assessment & Plan (1) Elbow fracture, left: Code(s): S42.402A - Unspecified fracture of lower end of left humerus, initial encounter for closed fracture Category: Medical Qualifiers: Encounter type: initial encounter Fracture type: closed Qualified Code(s): S42.402A - Unspecified fracture of lower end of left humerus, initial encounter for closed fracture Plan She will continue with the brace increasing ROM 15 degrees every week. No lifting or forceful movement especially with supination or pronation. She will remove the brace for hygiene. I would like to see him/her back in 6 weeks with x-rays, sooner if needed. Orders: Orders XR elbow LT min 3V 04/04/24 M25.522 - Pain in left elbow PT Evaluation and Treatment 04/04/24 S42.402A - Unspecified fracture of lower end of left humerus, initial encounter for closed fracture Patient Instructions: Scribed for Heather Longoria PA-C, by Josué Browning medical office assistant instructor, on 04/04/2024 at 2:30 PM EST.? I, Heather Longoria PA-C, have personally reviewed and agree with the information entered by the scribe. Coding Level of Care Code Global (82500) Diagnoses Closed fracture of left elbow, initial encounter S42.402A Encounter type: initial encounter Fracture type: closed
== END 2024-04-04 15:29 | disposition home or self-care (01) ==
PROVIDERS: PCP Internal Medicine; Visit Provider Physician Assistant
DX: S42.402A Unspecified fracture of lower end of left humerus, initial encounter for closed fracture (principal)
CPT/HCPCS: 99024

== ENCOUNTER 2024-05-16 13:07 | Outpatient (REF) | payer MEDICARE, SELFPAY ==
--- NOTE | ~2024-05-16 | XR_ITS ---
EXAMINATION: XR ELBOW, LEFT CLINICAL INFORMATION: Left elbow pain. COMPARISON: 03/05/2024. TECHNIQUE: AP, lateral, and oblique views of the left elbow. FINDINGS: Redemonstration status post ORIF of comminuted fracture of the lateral epicondyle with 2 screws and similar position/alignment. Multiple calcific/ossific foci in the soft tissues adjacent to the elbow, increased since the prior exam. Soft tissue swelling. Joint effusion. XR/XR elbow LT min 3V IMPRESSION: 1. Redemonstration status post ORIF of comminuted fracture of the lateral epicondyle with 2 screws and a similar position/alignment. 2. Multiple calcific/ossific foci in the soft tissues adjacent to the elbow, increased since the prior exam. Soft tissue swelling. Joint effusion. Electronically signed by: Arely Watson MD 06/05/2024 01:36 PM EDT
== END 2024-05-16 13:08 | disposition home or self-care (01) ==
LOC: HO.HOSX 13:07
PROVIDERS: PCP Internal Medicine; Visit Provider Physician Assistant
DX: M25.522 Pain in left elbow (principal); S42.402D Unspecified fracture of lower end of left humerus, subsequent encounter for fracture with routine healing; X58.XXXD Exposure to other specified factors, subsequent encounter; Z98.890 Other specified postprocedural states
CPT/HCPCS: 73080; 99212

== ENCOUNTER 2024-05-16 13:34 | Outpatient (AMB) | payer MEDICARE, SELFPAY ==
--- NOTE | 2024-05-16 13:37 | A.OFFVIS_ITS ---
Intake Visit Reasons: PO- ORIF left elbow 02/20/26 NE Allergies No Known Allergies Allergy (Verified 05/16/24 13:40) HPI HPI PO- ORIF left elbow 02/20/26 NE: Details: 79-year-old female who returns to the office today for post-op left elbow ORIF, 02/21/[address] Marcus. She states she has no pain and is doing well overall. She is using her brace as instructed. She has no concerns today. [facility] Medical History (Updated 03/02/24 @ 00:03 by Cristal Ruelas) Dementia Social History Household Members: Unknown / Unable to assess Housing: Unknown / Unable to assess Patient Tobacco Use Status: Never used Tobacco Advance Directives Date on File: 02/17/24 service: No Review of Systems Const All systems reviewed & are unremarkable except as noted in HPI and below Physical Exam Extrem Other: Left elbow: Incision clean, dry and intact. No redness or drainage. ROM is neutral to 30 degrees without pain. NVI. Results Reviewed Results Reviewed: Xrays were obtained in the office today and personally reviewed by me of the left elbow show intact hardware Assessment & Plan Assessment & Plan (1) Elbow fracture, left: Code(s): S42.402A - Unspecified fracture of lower end of left humerus, initial encounter for closed fracture Category: Medical Qualifiers: Encounter type: initial encounter Fracture type: closed Qualified Code(s): S42.402A - Unspecified fracture of lower end of left humerus, initial encounter for closed fracture Plan She will discontinue her brace. I did tell the family who was present with her today that she could use brace when she is out of her house while ambulating for safety, otherwise she will increase activities as tolerated. I did advise caution with heavy lifting and the family says she does not perform any lifting. She does live in assisted living and needs help with some activities as needed. I would like to see her back in 6 weeks with new x-rays, sooner if needed. Orders: Orders XR elbow LT min 3V Today M25.522 - Pain in left elbow Patient Instructions: Scribed for Tanvir-Hilaria Longoria PA-C, by Josué Browning medical assistant secretary, on 05/16/2024 at 1:45 PM EST.? I, Heather Longoria PA-C, have personally reviewed and agree with the information entered by the scribe. Coding Level of Care Code Global (59860) Diagnoses Closed fracture of left elbow, initial encounter S42.402A Encounter type: initial encounter Fracture type: closed
== END 2024-05-16 14:53 | disposition home or self-care (01) ==
PROVIDERS: PCP Internal Medicine; Visit Provider Physician Assistant
DX: S42.402A Unspecified fracture of lower end of left humerus, initial encounter for closed fracture (principal)
CPT/HCPCS: 99024

== ENCOUNTER 2024-06-27 10:50 | Outpatient (REF) | payer MEDICARE, SELFPAY ==
--- NOTE | ~2024-06-27 | XR_ITS ---
EXAMINATION: XR ELBOW, LEFT CLINICAL INFORMATION: Pain in left elbow COMPARISON: Left elbow radiographs 05/16/2024 TECHNIQUE: AP, lateral, and oblique views of the left elbow. FINDINGS: Redemonstration status post ORIF of comminuted fracture of the lateral condyle/epicondyle with 2 headless screws and similar position/alignment. Healing changes are increasing. Persistent ossific fragments are present lateral to the epicondyle and at the lateral aspect of the elbow joint as noted previously without significant change; the radiocapitellar joint remains abnormally widened. Stable deformity of the lateral aspect of the radial head with adjacent ossific fragment. Multiple ossific fragments are also seen medial to the elbow joint as well as anteriorly, similar to prior. It is not possible to exclude a loose body. Soft tissue swelling is present medially, less severe than on May 16, 2024. XR/XR elbow LT min 3V IMPRESSION: 1. Redemonstration status post ORIF of comminuted fracture of the lateral condyle/epicondyle with 2 screws in similar position/alignment. 2. Multiple calcific/ossific foci in the soft tissues adjacent to the elbow as noted previously. Persistent but improving soft tissue swelling. Electronically signed by: Chico Teague MD 07/17/2024 09:20 PM EDT
== END 2024-06-27 10:51 | disposition home or self-care (01) ==
LOC: HO.HOSX 10:50
PROVIDERS: Visit Provider Physician Assistant
DX: M25.522 Pain in left elbow (principal); S42.402D Unspecified fracture of lower end of left humerus, subsequent encounter for fracture with routine healing; Z98.890 Other specified postprocedural states
CPT/HCPCS: 73080; 99212

== ENCOUNTER 2024-06-27 13:23 | Outpatient (AMB) | payer MEDICARE, SELFPAY ==
--- NOTE | 2024-06-27 13:42 | A.OFFVIS_ITS ---
Intake Visit Reasons: OV-6wk f/u ORIF left elbow w xrays Intake Note: Jackie an 79 year old female who presents today for a follow up visit s/p left elbow ORIF on 02/21/24 NE. Patient daughter reports she is doing well, she has discomfort with certain arm positions. She has no concerns today. Allergies No Known Allergies Allergy (Verified 06/27/24 13:45) Medication List - Last Reconciled 06/27/24 by Heather Longoria PA-C atorvastatin 20 mg PO DAILY ciclopirox 0.77% 1 appl topical BID donepezil 10 mg PO BEDTIME loratadine 10 mg PO DAILY memantine 21 mg PO DAILY metformin ER 1,500 mg PO DAILY@1800 valsartan 80 mg PO DAILY HPI HPI OV-6wk f/u ORIF left elbow w xrays: Details: 79-year-old female who returns to the office today for a follow-up of left elbow ORIF, 02/21/[address] Marcus. She states she has some discomfort with certain arm positions however she is doing well otherwise. She has no other concerns today. [facility] Medical History (Updated 03/02/24 @ 00:03 by Cristal Ruelas) Dementia Social History Household Members: Unknown / Unable to assess Housing: Unknown / Unable to assess Patient Tobacco Use Status: Never used Tobacco Advance Directives Date on File: 02/17/24 service: No Review of Systems Const All systems reviewed & are unremarkable except as noted in HPI and below Physical Exam Extrem Other: Left elbow: Incision well healed. She can perform ROM and supination / pronation with out pain. NVI. Results Reviewed Results Reviewed: Xrays were obtained in the office today and personally reviewed by me of the left elbow show intact hardware Assessment & Plan Assessment & Plan (1) Elbow fracture, left: Code(s): S42.402A - Unspecified fracture of lower end of left humerus, initial encounter for closed fracture Category: Medical Qualifiers: Encounter type: initial encounter Fracture type: closed Qualified Code(s): S42.402A - Unspecified fracture of lower end of left humerus, initial encounter for closed fracture Plan She will increase activities as tolerated. She lives in an assisted living and so she is not doing any lifting or pushing activities but she can follow-up as needed as long as she is pain free and well. She will contact if she has any questions or concerns. Orders: Orders XR elbow LT min 3V Today M25.522 - Pain in left elbow Patient Instructions: Scribed for Heather Longoria PA-C, by Josué Browning medical physiologist, on 06/27/2024 at 1:30 PM EST.? I, Heather Longoria PA-C, have personally reviewed and agree with the information entered by the scribe. Coding Level of Care Code Global (55399) Diagnoses Closed fracture of left elbow, initial encounter S42.402A Encounter type: initial encounter Fracture type: closed
== END 2024-06-27 13:48 | disposition home or self-care (01) ==
PROVIDERS: PCP Internal Medicine; Visit Provider Physician Assistant
DX: S42.402A Unspecified fracture of lower end of left humerus, initial encounter for closed fracture (principal)
CPT/HCPCS: 99212

== ENCOUNTER 2024-07-17 19:50 | Emergency (ER) | payer MEDICARE, SELFPAY ==
[2024-07-17] VITALS (12 sets, daily range): BP systolic 109–152; BP diastolic 44–74; PULSE 63–96; RESP 17–24; TEMP 37.1–38.7; O2SAT 92–96; BMI 28.4
--- NOTE | 2024-07-17 | ECG_ITS ---
Test Reason : WEAKNESS Blood Pressure : / mmHG Vent. Rate : 095 BPM Atrial Rate : 095 BPM P-R Int : 132 ms QRS Dur : 084 ms QT Int : 358 ms P-R-T Axes : 047 -50 026 degrees QTc Int : 449 ms Sinus rhythm with Premature atrial complexes Left anterior fascicular block cannot exclude Anterolateral infarct , age undetermined Abnormal ECG When compared with ECG of 17-FEB-2024 23:40, Premature atrial complexes are now Present Anterolateral infarct is now Present Referred By: Generic ED Physician Electronically Signed By:TOM PLATT
--- NOTE | ~2024-07-17 | XR_ITS ---
EXAMINATION: XR CHEST CLINICAL INFORMATION: Hypoxia COMPARISON: None available. TECHNIQUE: Portable AP upright view of the chest was obtained at 2018 hours. FINDINGS: The heart and mediastinum are normal in appearance. Mild subsegmental atelectasis is present at the left lung base. The lungs and pleural spaces are otherwise clear. No pneumothorax. No acute osseous abnormality. XR/XR chest 1V IMPRESSION: Mild subsegmental atelectasis at the left lung base. The lungs and pleural spaces are otherwise clear. Electronically signed by: Chico Teague MD 07/17/2024 09:15 PM EDT
--- NOTE | 2024-07-17 20:11 | ED_ITS ---
HPI - General Adult General Chief complaint: General Medical Stated complaint: weakness from snf Time Seen by Provider: 07/17/24 19:59 Source: EMS Mode of arrival: EMS Limitations: altered mental status History of Present Illness HPI narrative: Patient is an 79-year-old female who presents emergency department via EMS coming from [facility] for appearing unwell over the past week according to staff as per EMS report. Patient's daughter is at bedside she reports that she was advised by a staff at the facility that yesterday patient seemed okay, she picked her up today and she seemed a bit off, lethargic, and warm to the touch. Patient is arousable to verbal stimuli, does not purposefully answer any questioning. Related Data Home Medications ?Medication ?Instructions ?Recorded ?Confirmed atorvastatin 20 mg tablet 20 mg PO DAILY 02/18/24 06/27/24 ciclopirox 0.77 % topical cream 1 appl topical BID 02/18/24 04/04/24 donepezil 10 mg tablet 10 mg PO BEDTIME 02/18/24 06/27/24 loratadine 10 mg tablet 10 mg PO DAILY 02/18/24 03/07/24 memantine 21 mg capsule 21 mg PO DAILY 02/18/24 06/27/24 sprinkle,extended release 24hr metformin 500 mg tablet,extended 1,500 mg PO DAILY@1800 02/18/24 06/27/24 release 24 hr valsartan 80 mg tablet 80 mg PO DAILY 02/18/24 06/27/24 Allergies Allergy/AdvReac Type Severity Reaction Status Date / Time No Known Allergies Allergy Verified 07/17/24 20:00 Review of Systems 2 Review of Systems: Yes all other systems are reviewed and are negative [facility] Past Medical History Attestation statement: The following information was validated with the patient. Source: old records reviewed Medical History Dementia Social History Social History Household Members: Unknown / Unable to assess Housing: Unknown / Unable to assess Unable to assess alcohol history related to: Unable to respond Patient Tobacco Use Status: Never used Tobacco Smoked in Last 30 Days: No Use of substances other than those prescribed or required for medical reasons: Unable to respond Advance Directives: Yes Advance Directives on File: Yes Advance Directives Date on File: 02/17/24 Do you have a plan to hurt others: No Plan service: No Physical Exam ED Vital Signs: Vital Signs - 24 hr 07/17/24 19:59 07/17/24 20:20 07/17/24 20:59 Temperature 99.7 F 101.6 F H Pulse Rate 92 96 82 Respiratory Rate 24 H 19 23 H Blood Pressure 152/66 H 152/66 H 136/74 Pulse Oximetry 95 95 94 Oxygen Delivery Method Room Air 07/17/24 21:15 07/17/24 21:30 07/17/24 21:45 Temperature Pulse Rate 77 76 79 Respiratory Rate 20 22 H 18 Blood Pressure 147/58 H 138/49 L 130/44 L Pulse Oximetry 96 94 94 Oxygen Delivery Method 07/17/24 22:18 07/17/24 22:22 07/17/24 22:26 Temperature 98.7 F 99.7 F Pulse Rate 67 63 Respiratory Rate 17 Blood Pressure 115/45 L 127/46 L Pulse Oximetry 95 Oxygen Delivery Method Room Air 07/17/24 22:59 07/17/24 23:20 Temperature Pulse Rate 70 Respiratory Rate 17 Blood Pressure 109/49 L Pulse Oximetry 92 95 Oxygen Delivery Method Room Air BMI result Body Mass Index 28.4 Appearance: Alert.? Disoriented to person, place and time. No acute distress.?Normal affect. Eyes: Pupils equal, round and reactive to light.? ENT: Pharynx normal.?? Neck: Normal inspection.? Neck supple.?? CVS: Heart sounds normal. Normal heart rate and rhythm.? Pulses normal.?? Respiratory: No respiratory distress.? Lung sounds clear to auscultation bilaterally?? Abdomen: Soft and non-tender. Normoactive bowel sounds. Skin: Skin hot to touch and dry.? Normal skin color.? Extremities: No lower extremity edema.? No calf ttp? Neuro: Moves all extremities spontaneously. Sensation intact bilaterally. No focal neuro deficits. Course Reevaluation(s) Reevaluation #1: 23:00 07/17/24 CBC is without leukocytosis anemia or thrombocytopenia. No significant electrolyte derangement mild hyponatremia at 01:34 otherwise unremarkable nights, no MARCOS. Initial lactic acid of 2.9 trending down words to 2.3 after receiving IV fluids. No hypotension. High sensitive troponin within normal range. Urinalysis without evidence of infection. Found to be COVID-19 positive. Chest x-ray without evidence of pneumonia. No hypoxia or tachypnea lung sounds are clear bilaterally. She is currently residing in an independent living setting; no locked memory unit, she has no assistance or nursing services. Nursing staff attempted to assist patient to get out of bed to perform an ambulatory O2 trial, she had significant weakness. Given this finding I do not feel that she is safe for discharge home to this setting, she will be placed in physician observation so that case management/physical therapy evaluation can ensue. At this time I do not feel as though she meets inpatient criteria. Medications Administered Discontinued Medications Generic Name Dose Route Start Last Admin Trade Name Freq PRN Reason Stop Dose Admin Acetaminophen 975 mg 07/17/24 20:38 07/17/24 20:57 Acetaminophen 325 Mg Tablet PO 07/17/24 20:39 975 mg ONCE ONE Administration Ceftriaxone Sodium 1 gm 07/17/24 20:38 07/17/24 20:57 Ceftriaxone Sodium 1 Gm Vial IVPUSH 07/17/24 20:39 1 gm ONCE ONE Administration Sodium Chloride 1,000 mls @ 999 mls/hr 07/17/24 20:45 07/17/24 22:04 Ns IV 07/17/24 21:45 Infused .Q1H1M NAN Infusion Medical Decision Making Medical Decision Making [facility] Narrative: Patient is an 79-year-old female past medical history of dementia brought to the emergency department via EMS from [facility] with tactile fever and lethargy as per HPI. She is arousable to verbal stimuli alert at the time my evaluation but does not provide any purposeful history. Does not offer any physical complaints. She arrived febrile with pulse greater than 90 and mild tachypnea. Lung sounds are clear to auscultation bilaterally. At 20:24 sepsis alert was called; obtaining blood cultures and lactic acid, patient received 1 L normal saline, if evidence of severe sepsis/organ failure hypotension or lactic acidosis will consider sepsis fluid bolus 30 mL per kg. Patient received Rocephin for broad coverage, acetaminophen for fever. Differential Diagnosis Differential Diagnoses: The differential diagnosis associated with the presentation includes (Sepsis, upper respiratory infection, COVID-19, influenza, urinary tract infection, pneumonia) Admission/Observation Consideration of admission/observation: Escalation of care including admission/observation considered Lab Data [facility] Lab Attestation statement: I reviewed the patient's lab results. 07/17/24 20:10 07/17/24 20:10 Labs: Lab Results 07/17/24 07/17/24 07/17/24 Range/Units 20:10 20:26 20:46 WBC 6.6 (4.8-10.8) X10*3/uL RBC 4.85 (4.20-5.50) X10*6/uL Hgb 14.5 (12.0-16.0) g/dl Hct 41.9 (37.0-47.0) % MCV 86.4 (80.0-98.0) fL MCH 29.9 (27.0-33.0) pg MCHC 34.6 (31.0-35.0) g/dl RDW 11.9 (11.0-16.0) % Plt Count 185 (160-400) X10*3/uL MPV 8.3 L (9.4-12.3) fL Immature Gran % (Auto) 0.3 (0.0-0.4) % Neut % (Auto) 75.0 H (45-73) % Lymph % (Auto) 10.4 L (20-40) % Haines % (Auto) 13.1 H (2-11) % Eos % (Auto) 0.6 (0-4) % Baso % (Auto) 0.6 (0-2) % Lymph # (Auto) 0.7 L (1.2-4.9) X10*3/uL Haines # (Auto) 0.9 (0.1-1.2) X10*3/uL Eos # (Auto) 0.0 (0.0-0.4) X10*3/uL Baso # (Auto) 0.0 (0.0-0.2) X10*3/uL Abs Immat Gran (auto) 0.02 (0.00-0.03) X10*3/uL Absolute Neuts (auto) 5.0 (2.0-8.3) x10*3/uL Absolute Nucleated RBC 0.000 (0.0-0.012) X10*3/uL Nucleated RBC % (auto) 0.0 (0.0-0.2) /100WBC PT 11.7 (10.9-12.4) SEC INR 1.0 (0.9-1.1) Sodium 134 L (135-145) mmol/L Potassium 4.2 (3.3-5.1) mmol/L Chloride 97 (96-108) mmol/L Carbon Dioxide 23 (22-29) mmol/L Anion Gap 18 (12-20) BUN 11 (9-16) mg/dL Creatinine 0.90 (0.5-1.4) mg/dL Estim Creat Clear Calc 50.4 Estimated GFR > 60 Random Glucose 241 H (60-115) mg/dL Lactic Acid 2.9 H* (0.5-2.0) mmol/L Lactic Acid F/U @ 2Hr (0.5-2.0) mmol/L Calcium 8.7 (8.4-10.2) mg/dL Total Bilirubin 0.4 (0.0-1.0) mg/dL AST 20 (5-31) U/L ALT 24 (0-31) U/L Alkaline Phosphatase 88 (39-117) U/L Troponin I High Sens 4.1 D (<3.5-17.0) ng/L Total Protein 7.1 (6.5-8.0) g/dL Albumin 4.1 (3.5-5.0) g/dL Urine Color Yellow Urine Appearance Clear Urine pH 5.5 (5.0-9.0) Ur Specific [place] >= 1.030 H (1.005-1.025) Urine Protein 100 (2+) H (Neg-Trace) mg/dL Urine Glucose (UA) 500 H (Negative) mg/dL Urine Ketones Trace (Negative) mg/dL Urine Blood Negative (Negative) Urine Nitrite Negative (Negative) Ur Leukocyte Esterase Negative (Negative) Urine RBC 0-2 (0-2) /HPF Urine WBC 0-5 (0-5) /HPF Ur Squamous Epith Cells 0-2 (0-2) /HPF Urine Bacteria None Seen (None Seen) Hyaline Casts 0-2 (0-2) /LPF Influenza Type A (PCR) NEGATIVE (Negative) Influenza Type B (PCR) NEGATIVE (Negative) RSV RNA Qual (PCR) NEGATIVE (Negative) SARS-CoV-2 RNA (RT-PCR) POSITIVE A (Negative) 10/30/24 Range/Units 23:04 WBC (4.8-10.8) X10*3/uL RBC (4.20-5.50) X10*6/uL Hgb (12.0-16.0) g/dl Hct (37.0-47.0) % MCV (80.0-98.0) fL MCH (27.0-33.0) pg MCHC (31.0-35.0) g/dl RDW (11.0-16.0) % Plt Count (160-400) X10*3/uL MPV (9.4-12.3) fL Immature Gran % (Auto) (0.0-0.4) % Neut % (Auto) (45-73) % Lymph % (Auto) (20-40) % Haines % (Auto) (2-11) % Eos % (Auto) (0-4) % Baso % (Auto) (0-2) % Lymph # (Auto) (1.2-4.9) X10*3/uL Haines # (Auto) (0.1-1.2) X10*3/uL Eos # (Auto) (0.0-0.4) X10*3/uL Baso # (Auto) (0.0-0.2) X10*3/uL Abs Immat Gran (auto) (0.00-0.03) X10*3/uL Absolute Neuts (auto) (2.0-8.3) x10*3/uL Absolute Nucleated RBC (0.0-0.012) X10*3/uL Nucleated RBC % (auto) (0.0-0.2) /100WBC PT (10.9-12.4) SEC INR (0.9-1.1) Sodium (135-145) mmol/L Potassium (3.3-5.1) mmol/L Chloride (96-108) mmol/L Carbon Dioxide (22-29) mmol/L Anion Gap (12-20) BUN (9-16) mg/dL Creatinine (0.5-1.4) mg/dL Estim Creat Clear Calc Estimated GFR Random Glucose (60-115) mg/dL Lactic Acid (0.5-2.0) mmol/L Lactic Acid F/U @ 2Hr 2.3 H* (0.5-2.0) mmol/L Calcium (8.4-10.2) mg/dL Total Bilirubin (0.0-1.0) mg/dL AST (5-31) U/L ALT (0-31) U/L Alkaline Phosphatase (39-117) U/L Troponin I High Sens (<3.5-17.0) ng/L Total Protein (6.5-8.0) g/dL Albumin (3.5-5.0) g/dL Urine Color Urine Appearance Urine pH (5.0-9.0) Ur Specific [place] (1.005-1.025) Urine Protein (Neg-Trace) mg/dL Urine Glucose (UA) (Negative) mg/dL Urine Ketones (Negative) mg/dL Urine Blood (Negative) Urine Nitrite (Negative) Ur Leukocyte Esterase (Negative) Urine RBC (0-2) /HPF Urine WBC (0-5) /HPF Ur Squamous Epith Cells (0-2) /HPF Urine Bacteria (None Seen) Hyaline Casts (0-2) /LPF Influenza Type A (PCR) (Negative) Influenza Type B (PCR) (Negative) RSV RNA Qual (PCR) (Negative) SARS-CoV-2 RNA (RT-PCR) (Negative) Independent Interpretation I performed an independent interpretation of an: EKG and Plain X-Ray (No consolidation or infiltrate) Interpretation: Rate: 95 Rhythm:? Sinus rhythm with PA Normal P waves.? Normal CED.?? Normal QRS complex.?? ST T wave :??No ST elevation, no ST depression qTC: 449 The study has been interpreted contemporaneously by me. Radiology Impression Discussion of test interpretation with radiology: I have reviewed the radiologist's reading. Radiologist Impression: XR/XR chest 1V IMPRESSION: Mild subsegmental atelectasis at the left lung base. The lungs and pleural spaces are otherwise clear. Independent Historian Clinical information obtained from an independent historian. History obtained from or confirmed by: EMS and Other (Daughter) External Record Review External record reviewed: Outpatient record Prescription Management I considered prescription management with: Antiviral Discharge Plan Discharge Clinical Impression: COVID-19 Patient Disposition: Still a Patient Prescriptions: No Action atorvastatin 20 mg tablet 20 mg PO DAILY donepezil 10 mg tablet 10 mg PO BEDTIME valsartan 80 mg tablet 80 mg PO DAILY metformin 500 mg tablet extended release 24 hr 1,500 mg PO DAILY@1800 ciclopirox 0.77 % cream 1 appl topical BID memantine 21 mg capsule,sprinkle,ER 24hr 21 mg PO DAILY loratadine 10 mg Tablet 10 mg PO DAILY Print Language: Sinhala
[2024-07-17 20:15] LABS: MANUAL DIFF FLAG NO
[2024-07-17 20:17] LABS: Basophils Percent Auto 0.6 % (0-2); Eosinophils Percent Auto 0.6 % (0-4); Hematocrit 41.9 % (37.0-47.0); Hemoglobin 14.5 g/dl (12.0-16.0); Imm Gran Abs Auto 0.02 X10*3/uL (0.00-0.03); Imm Gran Pct Auto 0.3 % (0.0-0.4); Lymphocytes Absolute Auto 0.7 X10*3/uL (1.2-4.9); Lymphocytes Percent Auto 10.4 % (20-40); Mean Corpuscular HGB Conc 34.6 g/dl (31.0-35.0); Mean Corpuscular Hemoglobin 29.9 pg (27.0-33.0); Mean Corpuscular Volume 86.4 fL (80.0-98.0); Mean Platelet Volume 8.3 fL (9.4-12.3); Monocytes Absolute Auto 0.9 X10*3/uL (0.1-1.2); Monocytes Percent Auto 13.1 % (2-11); Platelet Count 185 X10*3/uL (160-400); Red Blood Count 4.85 X10*6/uL (4.20-5.50); Red Cell Distribution Width 11.9 % (11.0-16.0); White Blood Count 6.6 X10*3/uL (4.8-10.8)
[2024-07-17 20:30] LABS: Alanine Aminotransferase 24 U/L (0-31); Albumin Level 4.1 g/dL (3.5-5.0); Alkaline Phosphatase 88 U/L (39-117); Anion Gap 18 (12-20); Aspartate Amino Transferase 20 U/L (5-31); Bilirubin Total 0.4 mg/dL (0.0-1.0); Blood Urea Nitrogen 11 mg/dL (9-16); Calcium 8.7 mg/dL (8.4-10.2); Carbon Dioxide 23 mmol/L (22-29); Chloride 97 mmol/L (96-108); Creatinine Clr Calc Pharmacy 50.4; Estimated Glomerular Filt Rate > 60; Glucose Random 241 mg/dL (60-115); Potassium 4.2 mmol/L (3.3-5.1); Prothrombin Time 11.7 SEC (10.9-12.4); Sodium 134 mmol/L (135-145); Total Protein 7.1 g/dL (6.5-8.0)
[2024-07-17 20:37] LABS: Troponin-I High Sensitivity 4.1 ng/L (<3.5-17.0)
[2024-07-17 20:52] LABS: Influenza A PCR NEGATIVE (Negative); Influenza B PCR NEGATIVE (Negative); Resp Syncy Virus RNA Qual PCR NEGATIVE (Negative); SARS COV2 PCR INHOUSE POSITIVE (Negative)
[2024-07-17] MEDS: 0.9 % Sodium Chloride 1,000 ML 999 ML IV (20:54)
[2024-07-17 20:56] LABS: Lactic Acid 2.9 mmol/L (0.5-2.0)
[2024-07-17] MEDS: cefTRIAXone sodium 1 GM VIAL IVPUSH (20:57)
[2024-07-17] MEDS: Acetaminophen 325 MG TABLET 975 MG PO (20:57)
[2024-07-17 21:15] LABS: Appearance Urine Clear; Color Urine Yellow; Glucose Urine UA 500 mg/dL (Negative); Leukocyte Esterase Urine Negative (Negative); Nitrite Urine Negative (Negative); PH 5.5 (5.0-9.0); Specific Gravity - Urine >= 1.030 (1.005-1.025); UMIC TRIGGER UACC YES; Urine Blood Negative (Negative); Urine Ketones Trace mg/dL (Negative); Urine Protein 100 (2+) mg/dL (Neg-Trace)
[2024-07-17 21:20] LABS: Bacteria Urine None Seen (None Seen); Hyaline Casts Urine 0-2 /LPF (0-2); RBC Urine 0-2 /HPF (0-2); Squamous Epithelial Cell Urine 0-2 /HPF (0-2); WBC Urine 0-5 /HPF (0-5)
[2024-07-17 22:32] LABS: Reflex Lactate? Lactic Acid Added
[2024-07-17 23:23] LABS: ~Lactic Acid-LAB USE ONLY 2.3 mmol/L (0.5-2.0)
[2024-07-18 01:08] LABS: Reflex Lactate? 2 Y
[2024-07-18 03:48] VITALS: BP 129/69; PULSE 62; RESP 14; TEMP 37.4; O2SAT 96
[2024-07-18 06:39] VITALS: BP 127/49; PULSE 72; RESP 19; TEMP 38.2; O2SAT 96
[2024-07-18] MEDS: Acetaminophen 325 MG TABLET 975 MG PO (06:41)
[2024-07-18 08:10] VITALS: BP 126/36; PULSE 60; RESP 16; TEMP 37.5; O2SAT 95
--- NOTE | 2024-07-18 08:44 | PC.NURSE ---
Report given to Overflow RN
[2024-07-18 09:38] VITALS: O2SAT 92
--- NOTE | 2024-07-18 09:38 | MHC.CM.ED ---
Addendum entered by Dione De Guzman 07/18/24 10:26: Laure is no longer contracted with [facility]. Rachel agreeable to [facility]. Referral made in [facility]. [facility]EM[facility] able to accept patient. Original Note: Received case management consult overnight. Patient came to the ER due to weakness. Found to be positive for Covid. Physical therapy eval completed. Short term rehab is recommended. Attempted to meet with patient. Patient is currently sleeping and has a history of dementia. Patient's daughter/HCP, Rachel, is currently at bedside. Patient moved in [facility] in March 2024. Rachel doesn't feel [facility] would be appropriate for her mother due to her dementia. Rachel curious about patient returning to her SNF with 24/7 care. T/W spoke with Laura at [facility]. Patient does receive assistance with getting out of bed, toileting and dressing at baseline. Patient's family would be able to stay with patient if needed. They could also hire 24/7 care if needed. Laura reports no other residents at their facility are Covid positive at this time. [facility] recommends patient go to [facility] if that is what is recommended. This information was provided to Rachel. Patient has been active with [facility] in the past. Requesting referral there. Referral made via [facility]. Rachel will speak to her brother about 24/7 care for patient. Family will need 24 hours to obtain this care for a safe transfer back to [facility]. Patient will remain in ER overflow overnight. Nahomy KHAL[facility] booked for 07/19 at 9am. Continue to monitor for d/c needs.
[2024-07-18 14:00] VITALS: BP 139/61; PULSE 67; RESP 18; TEMP 36.4; O2SAT 97
--- NOTE | 2024-07-18 16:06 | PHA.MEDREC ---
Addendum entered by Sesar Bernard 07/18/24 16:10: reviewed Original Note: Pharmacy Consult ? Medication Reconciliation Pharmacy has completed the medication reconciliation. Utilized list from [facility] to confirm med list.
--- NOTE | 2024-07-18 17:27 | MHC.EDTECH ---
This tech assisted with patient dinner. Patient ate 100% of pasta meal and 100% of dessert, apple juice and luis lee. Declined Salad
--- NOTE | 2024-07-18 17:27 | MHC.EDTECH ---
Patient incontinent of urine and stool. This tech cleaned patient, 100% bedding change, changed hospital attire, and patient is in new brief. All current needs met.
[2024-07-18 19:32] VITALS: BP 133/64; PULSE 79; RESP 18; TEMP 36.6; O2SAT 95
[2024-07-18 20:37] LABS: Glucose, Whole Blood 234 mg/dL (60-115)
[2024-07-18] MEDS: Donepezil HCl 10 MG TABLET PO (22:08)
[2024-07-19] VITALS: RESP 18
[2024-07-19 05:37] VITALS: BP 125/57; PULSE 70; RESP 19; TEMP 37.1; O2SAT 94
[2024-07-19 09:29] VITALS: BP 125/61
[2024-07-19] MEDS: Valsartan 80 MG TABLET PO (09:29)
[2024-07-19] MEDS: Atorvastatin Calcium 20 MG TABLET PO (09:29)
--- NOTE | 2024-07-19 11:42 | PC.NURSE ---
Patient cleared to return to [facility] per case management & CHON Coleman. Plan to transfer via EMS at 1:30pm today.
--- NOTE | 2024-07-19 11:59 | MHC.CM.ED ---
Patient remains in ER overflow. Originally was supposed to d/c back to [facility] at 9am. D/c was put on hold so lactic acid could be repeated. Repeat labs negative. Per Valerie GIVENS, patient can return to [facility]. Nahomy KHALIL booked for 130pm. [facility] with chart. Patient, daughter Rachel Adriana RN and Valerie GIVENS aware. Attempted to notify [facility]. Left a voicemail on nursing team's telephone. Continue to monitor for d/c needs.
--- NOTE | 2024-07-19 12:00 | PC.NURSE ---
This pt scheduled for D/C this am and was noted to have an elevated lactate that had not been rechecked, positive blood culture one set with a question of contamination w/fevers this admission. Was clarifying with case management who also clarified with MD and discharge was held pending repeat lactate. Pt looks bright, pleasantly confused. no VS concerns, minimal cough. Pt denies current complaint. Lactate down WNL. Daughter updated.
--- NOTE | 2024-07-19 12:42 | PC.NURSE ---
Patient ambulated out of bed with daughter & this RN to bathroom. Pt had bowel movement in brief, and urinated in the toilet. Pericare/hygiene care provided, and patient changed into personal clothing with plan to transfer back to [facility] around 1:30pm today by EMS. No additional needs at this time.
[2024-07-19 13:45] VITALS: BP 127/82; PULSE 73; RESP 16; TEMP 37.1; O2SAT 96
== END 2024-07-19 13:45 | disposition skilled nursing facility (03) ==
PROVIDERS: Nurse Practitioner Family; Physician Assistant; Emergency Provider Emergency Medicine Emergency Medical Services; PCP Internal Medicine
DX: U07.1 COVID-19 (principal); R53.83 Other fatigue; F03.90 Unspecified dementia, unspecified severity, without behavioral disturbance, psychotic disturbance, mood disturbance, and anxiety; E87.1 Hypo-osmolality and hyponatremia; R50.9 Fever, unspecified; Z79.899 Other long term (current) drug therapy
CPT/HCPCS: 0241U; 36415; 71045; 80053; 81001; 82947; 83605; 84484; 85025; 85610; 87040; 87147; 87205; 93005; 96361; 96374; 97162; 99284; 99285; J0696

== ENCOUNTER → 2024-07-17 19:57 | Outpatient (BNV) | payer MEDICARE, SELFPAY | PROVIDERS: Emergency Provider Emergency Medicine Emergency Medical Services; Visit Provider Internal Medicine | DX: R94.31 Abnormal electrocardiogram [ECG] [EKG] (principal) | CPT/HCPCS: 93010 ==

== ENCOUNTER 2024-11-13 12:20 | Emergency (ER) | payer MEDICARE, SELFPAY ==
--- NOTE | ~2024-11-13 | XR_ITS ---
EXAMINATION: XR CHEST CLINICAL INFORMATION: sob, hypoxic COMPARISON: 07/17/2024. TECHNIQUE: Frontal view of the chest was obtained. FINDINGS: The cardiac, hilar, and mediastinal contours are normal. Aortic mural calcification. Minimally elevated left hemidiaphragm with left base scarring. Lungs otherwise clear bilaterally. No pneumothorax or effusion. No focal osseous or soft tissue abnormality. Spinal degenerative changes with mild right convex thoracic scoliosis. Mild degenerative changes bilateral shoulder joints. XR/XR chest 1V IMPRESSION: 1. Aside from mild left base scarring, no active pulmonary disease. Electronically signed by: Masoud Sparks MD 11/13/2024 01:34 PM [facility]
[2024-11-13 12:28] VITALS: BP 151/70; PULSE 73; O2SAT 93
[2024-11-13 12:34] VITALS: BP 129/55; PULSE 79; RESP 22; TEMP 36.9; O2SAT 100; BMI 31.3
--- NOTE | 2024-11-13 12:35 | ECG_ITS ---
Test Reason : SOB Blood Pressure : */* mmHG Vent. Rate : 82 BPM Atrial Rate : 82 BPM P-R Int : 136 ms QRS Dur : 80 ms QT Int : 394 ms P-R-T Axes : 61 -50 48 degrees QTcB Int : 460 ms Sinus rhythm with Premature atrial complexes Left anterior fascicular block Possible Anterolateral infarct (cited on or before 17-Jul-2024) Abnormal ECG When compared with ECG of 17-Jul-2024 19:57, No significant change was found Referred By: Miriam Carpio Electronically Signed By: Jaleel Segura
[2024-11-13 13:03] LABS: MANUAL DIFF FLAG NO
[2024-11-13 13:04] LABS: Basophils Percent Auto 0.6 % (0-2); Eosinophils Absolute Auto 0.1 X10*3/uL (0.0-0.4); Hematocrit 42.1 % (37.0-47.0); Hemoglobin 14.6 g/dl (12.0-16.0); Imm Gran Abs Auto 0.01 X10*3/uL (0.00-0.03); Imm Gran Pct Auto 0.1 % (0.0-0.4); Lymphocytes Absolute Auto 2.4 X10*3/uL (1.2-4.9); Mean Corpuscular HGB Conc 34.7 g/dl (31.0-35.0); Mean Corpuscular Hemoglobin 30.3 pg (27.0-33.0); Mean Corpuscular Volume 87.3 fL (80.0-98.0); Mean Platelet Volume 8.6 fL (9.4-12.3); Monocytes Absolute Auto 0.7 X10*3/uL (0.1-1.2); Monocytes Percent Auto 9.8 % (2-11); Neutrophils Absolute Auto 3.7 x10*3/uL (2.0-8.3); Neutrophils Percent Auto 53.5 % (45-73); Platelet Count 158 X10*3/uL (160-400); Red Blood Count 4.82 X10*6/uL (4.20-5.50); Red Cell Distribution Width 11.9 % (11.0-16.0); White Blood Count 6.9 X10*3/uL (4.8-10.8)
[2024-11-13 13:08] LABS: VBG Base Excess 3.4 mmol/L; VBG HCO3 29 mmol/L (22-26); VBG pCO2 49 mmHg; VBG pH 7.38 (7.32-7.43); VBG pO2 37 mmHg
[2024-11-13 13:12] LABS: Prothrombin Time 11.6 SEC (10.9-12.4)
[2024-11-13 13:12] LABS: Venous Blood Gas Refer to POC result
[2024-11-13 13:28] LABS: B Type Natriuretic Peptide 37 pg/mL (<100)
[2024-11-13 13:29] LABS: Troponin-I High Sensitivity 4.1 ng/L (<3.5-17.0)
[2024-11-13 13:31] LABS: Alanine Aminotransferase 16 U/L (0-31); Albumin Level 3.7 g/dL (3.5-5.0); Alkaline Phosphatase 74 U/L (39-117); Anion Gap 15 (12-20); Aspartate Amino Transferase 24 U/L (5-31); Bilirubin Total 0.7 mg/dL (0.0-1.0); Blood Urea Nitrogen 11 mg/dL (9-16); Calcium 8.6 mg/dL (8.4-10.2); Carbon Dioxide 22 mmol/L (22-29); Chloride 100 mmol/L (96-108); Creatinine Clr Calc Pharmacy 54.7; Estimated Glomerular Filt Rate > 60; Glucose Random 265 mg/dL (60-115); Magnesium 2.2 mg/dL (1.6-2.6); Potassium 4.5 mmol/L (3.3-5.1); Sodium 132 mmol/L (135-145); Total Protein 7.3 g/dL (6.5-8.0)
--- NOTE | 2024-11-13 13:42 | ED_ITS ---
HPI - SOB/Dyspnea General Chief Complaint: Dyspnea Stated Complaint: +RSV,SOB 94%, 97% ON DUONEB GIVEN Time Seen by Provider: 11/13/24 13:18 Source: patient, EMS, RN notes reviewed and old records reviewed Mode of arrival: EMS Limitations: other (dementia) History of Present Illness ED Provider: MIRIAM CARPIO PA-C HPI Narrative: 79 year old female with pmhx significant for dementia presents to the ED today via EMS from the [facility] memory unit for evaluation of shortness of breath. Per facility, a large majority of their residents recently tested positive for RSV. She has been sent to the ED for testing. In ED, patient has no complaints. History obtained for nursing facility as well as patient's daughter at bedside due to patient's advanced dementia. Per daughter at bedside, patient is currently at her baseline. Related Data Home Medications ?Medication ?Instructions ?Recorded ?Confirmed atorvastatin 20 mg tablet 20 mg PO DAILY 02/18/24 07/18/24 donepezil 10 mg tablet 10 mg PO BEDTIME 02/18/24 07/18/24 memantine 21 mg capsule 21 mg PO DAILY 02/18/24 07/18/24 sprinkle,extended release 24hr metformin 500 mg tablet,extended 1,500 mg PO DAILY@1800 02/18/24 07/18/24 release 24 hr valsartan 80 mg tablet 80 mg PO DAILY 02/18/24 07/18/24 Previous Rx's ?Medication ?Instructions ?Recorded oseltamivir 75 mg capsule (Tamiflu) 75 mg PO BID 5 days #10 caps 11/13/24 Allergies Allergy/AdvReac Type Severity Reaction Status Date / Time No Known Allergies Allergy Verified 11/13/24 12:36 Review of Systems 2 Review of Systems: Yes Unobtainable due to mental status (advanced dementia) [facility] Past Medical History Source: old records reviewed, obtained from family and nursing notes reviewed Medical History Dementia Social History Social History Household Members: Unknown / Unable to assess Housing: Unknown / Unable to assess Unable to assess alcohol history related to: Unable to respond Patient Tobacco Use Status: Never used Tobacco Advance Directives: Yes Advance Directives on File: Yes Advance Directives Date on File: 02/17/24 Do you have a plan to hurt others: No Plan service: No Physical Exam 2 Vital Signs: Vital Signs: Last Vital Signs Temp 98.8 F 11/13/24 18:12 Pulse 95 11/13/24 18:12 Resp 20 11/13/24 18:12 BP 136/86 11/13/24 18:12 Pulse Ox 93 11/13/24 18:12 O2 Del Method Room Air 11/13/24 18:12 BMI result Body Mass Index 31.3 vital signs stable, not hypoxic General: well appearing, no acute distress Skin: Warm, dry, intact. No rashes or lesions. Head: Normocephalic, atraumatic. EENT: Hearing is intact b/l. Conjunctiva clear. PERRLA. EOM intact. Moist mucous membranes.? Neck: Supple without LAD Cardiac: Chest wall symmetric. RRR. no jvd. Lungs: Normal respiratory effort without accessory muscle use. no cough. CTA bilaterally. Abdomen: Soft, non-tender, non-distended Back: No midline spinous or paraspinal tenderness. No step off deformity. Ext: Upper and lower extremities atraumatic, without tenderness, deformity, swelling or erythema. no pitting edema. Neuro: pleasantly confused, alert, disoriented to person, place and time (at baseline) Psych: Appropriate mood and affect Course Course Course Narrative: CBC without leukocytosis or left shift. no anemia, h&h stable. slight thrombocytopenia to 158. chemistry showing hyponatremia to 132 - encouraged oral hydration. no other acute electrolyte abnormality requiring intervention. no landen. random glucose 265. no gap. liver function wnl. she is positive for flu a, negative for covid, rsv. cxr does not show evidence of pneumonia. ekg does not demonstrate acute ischemic changes or st elevations. troponin wnl. bnp wnl. > patient was able to ambulate with computer support technician up and down the hallway for ambulatory O2 trial. maintained 95% on RA during trial. did not endorse shortness of breath or difficulty breathing. she did not have any increased effort of breathing. she is generally well appearing. > I feel patient is stable for discharge back to facility at this time. she was treated with a dose of tamiflu. I have called in the [facility] by her nursing facility. Patient has remained stable throughout ED visit today. Discussed worrisome signs and symptoms w/ staff and when to return to the ED. All questions answered at this time. patient is stable for discharge back to facility via ambulance. Medications Administered Discontinued Medications Generic Name Dose Route Start Last Admin Trade Name Hanny PRN Reason Stop Dose Admin Oseltamivir Phosphate 75 mg 11/13/24 13:52 11/13/24 14:07 Oseltamivir Phosphate 75 Mg Capsule PO 11/13/24 13:53 75 mg ONCE ONE Administration Medical Decision Making Medical Decision Making [facility] Narrative: 79 year old female with pmhx significant for dementia presents to the ED today via EMS from the [facility] for evaluation of shortness of breath. vital signs stable. afebrile. she is well appearing, pleasantly confused. no respiratory distress, no cough, lungs are CTA b/l without adventitious breath sounds. no jvd or pitting edema. Differential diagnosis includes viral syndrome, bronchitis, pneumonia, anemia, electrolyte abnormality, pleural effusion, CHF. Plan for labs, viral swabs, ekg, cxr, re-evaluation. Differential Diagnosis Differential Diagnoses: The differential diagnosis associated with the presentation includes as above. Admission/Observation Consideration of admission/observation: Escalation of care including admission/observation considered Admission considered on presentation. Lab Data [facility] Lab Attestation statement: I reviewed the patient's lab results. as above. 11/13/24 12:58 11/13/24 12:58 Labs: Lab Results 11/13/24 11/13/24 11/13/24 Range/Units 12:48 12:58 13:04 WBC 6.9 (4.8-10.8) X10*3/uL RBC 4.82 (4.20-5.50) X10*6/uL Hgb 14.6 (12.0-16.0) g/dl Hct 42.1 (37.0-47.0) % MCV 87.3 (80.0-98.0) fL MCH 30.3 (27.0-33.0) pg MCHC 34.7 (31.0-35.0) g/dl RDW 11.9 (11.0-16.0) % Plt Count 158 L (160-400) X10*3/uL MPV 8.6 L (9.4-12.3) fL Immature Gran % (Auto) 0.1 (0.0-0.4) % Neut % (Auto) 53.5 (45-73) % Lymph % (Auto) 35.0 (20-40) % Kimball % (Auto) 9.8 (2-11) % Eos % (Auto) 1.0 (0-4) % Baso % (Auto) 0.6 (0-2) % Lymph # (Auto) 2.4 (1.2-4.9) X10*3/uL Kimball # (Auto) 0.7 (0.1-1.2) X10*3/uL Eos # (Auto) 0.1 (0.0-0.4) X10*3/uL Baso # (Auto) 0.0 (0.0-0.2) X10*3/uL Abs Immat Gran (auto) 0.01 (0.00-0.03) X10*3/uL Absolute Neuts (auto) 3.7 (2.0-8.3) x10*3/uL Absolute Nucleated RBC 0.000 (0.0-0.012) X10*3/uL Nucleated RBC % (auto) 0.0 (0.0-0.2) /100WBC PT 11.6 (10.9-12.4) SEC INR 1.0 (0.9-1.1) VBG pH 7.38 (7.32-7.43) VBG pCO2 49 mmHg VBG pO2 37 mmHg VBG HCO3 29 H (22-26) mmol/L VBG O2 Saturation 59.0 % VBG Base Excess 3.4 mmol/L Sodium 132 L (135-145) mmol/L Potassium 4.5 (3.3-5.1) mmol/L Chloride 100 (96-108) mmol/L Carbon Dioxide 22 (22-29) mmol/L Anion Gap 15 (12-20) BUN 11 (9-16) mg/dL Creatinine 0.90 (0.5-1.4) mg/dL Estim Creat Clear Calc 54.7 Estimated GFR > 60 Random Glucose 265 H (60-115) mg/dL Calcium 8.6 (8.4-10.2) mg/dL Magnesium 2.2 (1.6-2.6) mg/dL Total Bilirubin 0.7 (0.0-1.0) mg/dL AST 24 (5-31) U/L ALT 16 (0-31) U/L Alkaline Phosphatase 74 (39-117) U/L Troponin I High Sens 4.1 (<3.5-17.0) ng/L B-Natriuretic Peptide 37 (<100) pg/mL Total Protein 7.3 (6.5-8.0) g/dL Albumin 3.7 (3.5-5.0) g/dL Influenza Type A (PCR) POSITIVE A (Negative) Influenza Type B (PCR) NEGATIVE (Negative) RSV RNA Qual (PCR) NEGATIVE (Negative) SARS-CoV-2 RNA (RT-PCR) NEGATIVE (Negative) Independent Interpretation I performed an independent interpretation of an: Plain X-Ray Interpretation: CXR without infiltrate or consolidation EKG showing sinus rhythm with PACs with a rate of 82 beats per minute, QT 394, QTC 460, no acute ischemic changes or ST elevation Radiology Impression Discussion of test interpretation with radiology: I have reviewed the radiologist's reading. Radiologist Impression: Procedure(s): XR chest 1V Accession Number(s): [id number] cc: Rachel Sanabria MD; Miriam Carpio~ EXAMINATION: XR CHEST CLINICAL INFORMATION: sob, hypoxic COMPARISON: 07/17/2024. TECHNIQUE: Frontal view of the chest was obtained. FINDINGS: The cardiac, hilar, and mediastinal contours are normal. Aortic mural calcification. Minimally elevated left hemidiaphragm with left base scarring. Lungs otherwise clear bilaterally. No pneumothorax or effusion. No focal osseous or soft tissue abnormality. Spinal degenerative changes with mild right convex thoracic scoliosis. Mild degenerative changes bilateral shoulder joints. XR/XR chest 1V IMPRESSION: 1. Aside from mild left base scarring, no active pulmonary disease. Electronically signed by: Masoud Sparks MD 11/13/2024 01:34 PM [facility] Independent Historian Clinical information obtained from an independent historian. History obtained from or confirmed by: EMS and Other (daughter) External Record Review External record reviewed: Inpatient record Prescription Management I considered prescription management with: Antiviral (tamiflu) Chronic Conditions Patient?s care impacted by: Other (dementia) Social Determinants Patient?s care significantly limited by Social Determinants of Health including: Other Social Determinant of Health Critical Care Time Critical Care Time Critical Care Time: No Discharge Plan Discharge Clinical Impression: Influenza A Patient Disposition: Xfer SNF Transfer Details: [facility] Instructions: Oseltamivir (By mouth), Influenza (ED) Additional Instructions: Jackie's blood work today is reassuring. Her chest x-ray does not demonstratea pneumonia or fluid in her lungs. She tested positive for influenza A. She tested negative for covid, rsv. Her oxygen has remained stable while in ED. She has been started on tamiflu (osteltamivir) which she should take twice a day for 5 days. She received her first dose in ED today. The rest of the course has been called in to [facility] and should be ready for supervisor opening and picking. Follow up with outpatient providers as needed. Return with new or worsening symptoms. In the case of an emergency call 911. Prescriptions: New oseltamivir [Tamiflu] 75 mg capsule 75 mg PO BID 5 Days Qty: 10 0RF No Action atorvastatin 20 mg tablet 20 mg PO DAILY donepezil 10 mg tablet 10 mg PO BEDTIME valsartan 80 mg tablet 80 mg PO DAILY metformin 500 mg tablet extended release 24 hr 1,500 mg PO DAILY@1800 memantine 21 mg capsule,sprinkle,ER 24hr 21 mg PO DAILY Referrals: Rachel Sanabria MD [Primary Care Provider] - Interventions: ED Discharge Assessment Last Done: 11/13/24 18:12 Discharge Date/Time: 11/13/24 18:13 Print Language: Persian
[2024-11-13 13:44] LABS: Influenza A PCR POSITIVE (Negative); Influenza B PCR NEGATIVE (Negative); Resp Syncy Virus RNA Qual PCR NEGATIVE (Negative); SARS COV2 PCR INHOUSE NEGATIVE (Negative)
--- NOTE | 2024-11-13 13:59 | MHC.EDTECH ---
PT AMBULATED WITH PULSE OX O2 STATING BETWEEN 93%-95%, PROVIDER MADE AWARE
[2024-11-13] MEDS: Oseltamivir Phosphate 75 MG CAPSULE PO (14:07)
[2024-11-13 16:06] VITALS: BP 144/78; PULSE 95; RESP 20; TEMP 37.1; O2SAT 93
--- OUTSIDE RECORDS SUMMARY | 2024-11-13 16:06 | XMS_ITS | Patient Health Record ---
Author Organization [facility] Address [address] [place] [address] Care Team Providers Care Fountain Manager Name Role Phone Lisy Gonzalez Primary Care Provider Aaron Dorman Unavailable [phone] Allergies Allergen (clinical drug ingredient) Drug/Non Drug Allergy documented on EMR Reaction Allergy Type Onset Date Status lisinopril Lisinopril cough Drug Allergy Activ e Results Component Value Reference Range Notes HEMOGLOBIN A1C (GLYCOHEMOGLO BIN) Reviewed date:12/22/2023 11:15:38 AM Interpretation: Performing Lab: Notes/Report: HEMOGLOBIN A1C (HH) 7.2 Reason For Referral No Information Medications Medication SIG (Take, Route, Frequency, Duration) Notes Start Date End Date Status Extra Depth Orthopedic Shoes, (1) Pair With (3) Pair Custom Heat Molded Multidensity Innersoles Dx: NIDDM/PVD(E11.51), Hammertoe Foot Deformity(M20.41,M20.42) , Preulcerative Skin Lesion(s)(L85.1) Wear Daily for 365 days 05/28/2024 Active Memantine HCl 10 MG Oral for 90 Not-Taking Atorvastatin Calcium 20 MG Oral for 90 Active Ammonium Lactate 12 % 1 application to affected area Externally to feet Twice a day for 30 days Active metFORMIN HCl 500 MG 1 tablet with a geeta l Orally Once a day for 30 day(s) 1500mg Active Donepezil HCl 10 MG Oral for 90 Active Valsartan 80 MG Oral for 90 Ac tive Memantine HCl ER 21 MG 1 capsule Orally Once a day for 30 day(s) Active Centrum Not-Taking Ciclopirox Olamine 0.77 % 1 application Externally Twice a day for 30 days Active Claritin Not-Taking Immunizations Vaccine Route Administration Date Status Comme nts COVID-19 Pfizer BioNTech Vaccine Unknown 08/25/2021 Administered 1st 11/02/2020 2nd 11/24/2020 Influenza Unknown 06/20/2022 Administered Social History Tobacco Use: Social History Observation Description Date Details (start date - stop date) Never Smoker NA - NA Tobacco Use/Smoking Question Answer Notes Are you a: nonsmoker Additional Findings: Tobacco Non-User Current no n-smoker Alcohol Screen Question Answer Notes Did you have a drink containing alcohol in the p ast year? No Points 0 Interpretation Negative Tobacco use other than smoking: Question Answer Notes Are you an other tobacco user? No Problems Problem Type SNOMED Code ICD Code Onset Dates Problem Status W/U Status Risk Notes Problem Acquired hammer toe of right foot (8708365277579 105) Other hammer toe(s) (acquired), right foot (M20.41) Active confirmed Response to treatment,I mprovement Problem Type 2 diabetes mellitus with peripheral angiopathy (138826726) Type 2 diabetes mellitus with diabetic peripheral angiopathy without gangrene (E11.51) Active confirmed Problem Acquired hammer toe of left foot (5934757023946 103) Other hammer toe(s) (acquired), left foot (M20.42) Active confirmed Response to treatment,I mprovement Vital Signs Blood pressure diastolic 70 mm Hg 05/28/2024 Height 5 ft 3 in in 05/28/2024 Blood pressure systolic 124 mm Hg 05/28/2024 Weight 155 lbs 05/28/2024 BMI 27.45 kg/m2 05/28/2024 Procedures Procedure Date Ordered Date Performed Result Body Sit e 28327-AKBWHQE NAIL, 6 OR MORE 12/22/2023 N/A 18601-WPCI SKIN LESIONS, OVER 4 12/22/2023 N/A 12752-CDRFECW NAIL, 6 OR MORE 05/28/2024 N/A 20325-YUUR SKIN LESIONS, OVER 4 05/28/2024 N/A Encounters Encounter Location Date Provider [facility] [address] [place] [address] 12/22/2023 Aaron Wilkes Type 2 diabetes mellitus with diabetic peripheral angiopathy without gangrene E11.51 ; Tinea unguium B35.1 ; Pain in right toe(s) M79.674 ; Pain in left toe(s) M79.675 and Tinea pedis of both feet B35.[facility] [address] 05/28/2024 Aaron Wilkes Type 2 diabetes mellitus with diabetic peripheral angiopathy without gangrene E11.51 ; Tinea unguium B35.1 ; Pain in right toe(s) M79.674 ; Pain in left toe(s) M79.675 ; Tinea pedis of both feet B35.3 ; Other hammer toe(s) (acquired), right foot M20.41 and Other hammer toe(s) (acquired), left foot M20.[address] [address] 03/27/2024 Aaron Wilkes [address] [address] 05/27/2024 Aaron Wilkes [address] [address] 08/26/2024 Aaron Wilkes Assessments Encounter Date Diagnosis (ICD Code) Assessment Notes Treatment Notes Treatment Clinical Notes Section Notes 12/22/2023 Type 2 diabetes mellitus with diabetic peripheral angiopathy without gangrene (ICD-10 - E11.51) 12/22/2023 Tinea unguium (ICD-10 - B35.1) 05/28/2024 Type 2 diabetes mellitus with diabetic peripheral angiopathy without gangrene (ICD-10 - E11.51) 05/28/2024 Tinea unguium (ICD-10 - B35.1) 12/22/2023 Pain in right toe(s) (ICD-10 - M79.674) 12/22/2023 Pain in left toe(s) (ICD-10 - M79.675) 05/28/2024 Pain in right toe(s) (ICD-10 - M79.674) 05/28/2024 Pain in left toe(s) (ICD-10 - M79.675) 12/22/2023 Tinea pedis of both feet (ICD-10 - B35.3) 05/28/2024 Tinea pedis of both feet (ICD-10 - B35.3) 05/28/2024 Other hammer toe(s) (acquired), right foot (ICD-10 - M20.41) Patient Educated with: DIABETIC FOOT CARE INSTRUCTIONS.p df (DIABETIC FOOT CARE INSTRUCTIONS.p df) 05/28/2024 Other hammer toe(s) (acquired), left foot (ICD-10 - M20.42) Plan Of Treatment Pending Test Test Name Order Date X ray : Foot, right 3V 09/30/2022 06840-KGVRREF NAIL, 6 OR MORE 11/04/2022 38810-UPSQJHI NAIL, 6 OR MORE 07/15/2022 44934-KXSCPXJ NAIL, 6 OR MORE 2023 13638-KHBSAQF NAIL, 6 OR MORE 06/02/2023 01549-XMAJDIL NAIL, 6 OR MORE 09/22/2023 81722-VZNEMBV NAIL, 6 OR MORE 12/22/2023 13190-ESSCGCY NAIL, 6 OR MORE 05/28/2024 86507-GDQFXOT NAIL, 6 OR MORE 02/21/2020 35804-FMAKURN NAIL, 6 OR MORE 05/15/2020 51591-KELSCZJ NAIL, 6 OR MORE 10/09/2020 62964-TXLEZKN NAIL, 6 OR MORE 01/15/2021 43361-TIPNRHU NAIL, 6 OR MORE 04/23/2021 33549-IQNBKZI NAIL, 6 OR MORE 07/23/2021 97969-COUGOPZ NAIL, 6 OR MORE 11/26/2021 60795-WOIZBXA NAIL, 6 OR MORE 04/15/2022 17359-Hkcgrikv Plate 02/21/2020 64206-TKOC SKIN LESIONS, OVER 4 05/28/20 24 69007-KSFQ SKIN LESIONS, OVER 4 12/22/19 24 47184-GLMK SKIN LESIONS, OVER 4 09/22/19 24 26378-WSYW SKIN LESIONS, OVER 4 06/02/20 23 72968-SDKN SKIN LESIONS, OVER 4 02/04/20 23 01683-ZLDW SKIN LESIONS, OVER 4 11/04/19 23 07017-UXQX SKIN LESIONS, 2 TO 4 07/15/20 22 54325-RWOA SKIN LESIONS, 2 TO 4 04/15/20 22 58855-XPWY SKIN LESIONS, 2 TO 4 11/27/19 22 24757-RWWD SKIN LESIONS, 2 TO 4 07/23/20 21 86245-MYEK SKIN LESIONS, 2 TO 4 04/23/20 21 83448-NRJQ SKIN LESIONS, 2 TO 4 01/16/20 21 35467-NHOZ SKIN LESIONS, 2 TO 4 10/09/19 21 91771-AWUU SKIN LESIONS, 2 TO 4 05/15/20 20 71628-UIPD SKIN LESIONS, 2 TO 4 02/21/20 Next Appt Details Provider Name:Aaron Wilkes , 12/03/2024 02:30:00 PM, [address] [facility], [place], [address], Insurance Providers Payer Name Payer Address Payer Phone Subscriber Number Group Number Insured Name Patient Relationship to Insured Coverage Start Date Coverage End Date [employer] Medicare Adv-[id number] [address] [address] [place] [address] [id number] Jackie Mistry Self - patient is the insured Medical (General) History Medical History History ICD Code Alzheimers disease CAD (Cholesterol) Dementia High blood pressure Chicken pox Seasonal allergies type II diabetes Surgical History Surgery Date(Month/Year) cyst removal 06/08 Hospitalization History Reason Date(Month/Year) [facility]- Fractured ankle 08/07
--- OUTSIDE RECORDS SUMMARY | 2024-11-13 16:06 | XMS_ITS ---
Author Organization [facility] Address [address] [place] [address] Care Team Providers Care Material Flow Engineer Name Role Phone Lisy Gonzalez Primary Care Provider Aaron Dorman Unavailable [phone] Encounters Encounter Location Date Provider Diagnosis [address] [address] 06/11/2024 Aaron Wilkes Plan Of Treatment Next Appt Details Provider Name:Aaron Wilkes , 12/03/2024 02:30:00 PM, [address] [place] [address], [phone], Progress Notes * Jackie MISTRYDOB:[birth year] (79 yo F)Acc No.[id number]:06/11/2024 Progress Note Patient:?Jackie MISTRY Provider:?Aaron Wilkes DPM :1945???Age:79 Y???Sex:Female D ate:06/11/2024 Address:[address] [place] [address] Pcp:Lisy Gonzalez Subjective: * Chief Complaints: * ??? * Medical History:? Objective: * Vitals:? Assessment: Plan: * Treatment: * Images: * The named appointment provid er may or may not be the originator of this progress note, and it is not deemed complete until electronically signed by the appointment provider. Sign off status: Pending * Provider:?Aaron Wilkes DPM Date:?2023 Generated for Louise martin/Kalen/Armond on:?11/13/2024 04:06 PM EST
--- OUTSIDE RECORDS SUMMARY | 2024-11-13 16:06 | XMS_ITS ---
Author Organization [facility] Address Unknown Problems Problem Status Start Date End Date DISPLACED FRACTURE OF HEAD O F LEFT RADIUS, SUBSEQUENT ENCOUNTER FOR CLOSED FRACTURE WITH ROUTINE HEALING (Primary) (S52.122D - ICD-10-CM) ACTIVE 02/23/2024 DISPLACED FRACTURE (AVULSION ) OF LATERAL EPICONDYLE OF LEFT HUMERUS, SUBSEQUENT ENCOUNTER FOR FRACTURE WITH ROUTINE HEALING (S42.432D - ICD-10-CM) ACTIVE 02/23/2024 ENCOUNTER FOR OTHER ORTHOPED IC AFTERCARE (Z47.89 - ICD-10-CM) ACTIVE 02/23/2024 ALZHEIMER'S DISEASE, UNSPECIFIED (G30.9 - ICD-10-CM) A CTIVE 02/23/2024 HISTORY OF FALLING (Z91.81 - ICD-10-CM) ACTIVE 0 02/23/2024 TYPE 2 DIABETES MELLITUS WIT HOUT COMPLICATIONS (E11.9 - ICD-10-CM) ACTIVE 02/23/2024 ESSENTIAL (PRIMARY) HYPERTENSION (I10 - ICD-10-CM) ACT NITISH 02/23/2024 HYPERLIPIDEMIA, UNSPECIFIED (E78.5 - ICD-10-CM) ACTIVE 02/23/2024 Encounters Encounter Performer Performer Role Encounter Diagnoses Location Date Discharge - Discharged to home or self care - Other - Other [facility] 4 07:56 pm EDT - 4 11:30 am EDT Immunizations Vaccine Date (COVID-19) Pfizer Original Primary Dose Vaccine 2 of 2 11/24/2020 12:00 am EST (COVID-19) Pfizer Original Primary Dose Vaccine 1 of 2 11/02/2020 12:00 am EST (COVID-19) Pfizer Original Booster Vacci ne 08/25/2021 12:00 am EST Social History
--- OUTSIDE RECORDS SUMMARY | 2024-11-13 16:06 | XMS_ITS ---
Author Organization [facility] Address [address] [place] [address] Care Team Providers Care Rules Examiner Name Role Phone Lisy Gonzalez Primary Care Provider Aaron Dorman Unavailable [phone] Encounters Encounter Location Date Provider Diagnosis [address] [address] 08/27/2024 Aaron Wilkes Plan Of Treatment Next Appt Details Provider Name:Aaron Wilkes , 12/03/2024 02:30:00 PM, [address] [place] [address], [phone], Progress Notes * Jackie MISTRYDOB:[birth year] (79 yo F)Acc No.[id number]:08/27/2024 Progress Note Patient:?Jackie MISTRY Provider:?Aaron Wilkes DPM :1945???Age:79 Y???Sex:Female D ate:08/27/2024 Address:[address] [place] [address] Pcp:Lisy Gonzalez Subjective: * Chief Complaints: * [...]
--- OUTSIDE RECORDS SUMMARY | 2024-11-13 16:06 | XMS_ITS ---
Author Organization [facility] Address [address] [place] [address] Care Team Providers Care Machine Cloth Measurer Name Role Phone Lisy Gonzalez Primary Care Provider Aaron Dorman [phone] REASON FOR VISIT r/s 08/27 Encounters Encounter Location Date Provider Diagnosis [address] [address] 08/26/2024 Aaron Wilkes Plan Of Treatment Next Appt Details Provider Name:Aaron Wilkes , 12/03/2024 02:30:00 PM, [address] [place] [address], [phone], Progress Notes * Jackie MISTRYDOB:[birth year] (79 yo F)Acc No.[id number]:08/26/2024 Patient:?Jackie MISTRY :1945???Age:79 Y???Sex:Female Address:[address] [place] [address], [address] * true * Date:? Generated for Printi ng/Famikhailg/eTransmitting on:?11/13/2024 04:06 PM EST
--- NOTE | 2024-11-13 18:11 | PC.NURSE ---
Called patient facility gave report to Dorie KRAFT.
[2024-11-13 18:12] VITALS: BP 136/86; PULSE 95; RESP 20; TEMP 37.1; O2SAT 93
== END 2024-11-13 18:13 | disposition skilled nursing facility (03) ==
PROVIDERS: Physician Assistant Medical; Emergency Provider Emergency Medicine; PCP Internal Medicine
DX: J10.1 Influenza due to other identified influenza virus with other respiratory manifestations (principal); R06.02 Shortness of breath; Z79.02 Long term (current) use of antithrombotics/antiplatelets; Z79.84 Long term (current) use of oral hypoglycemic drugs; Z79.899 Other long term (current) drug therapy; Z03.818 Encounter for observation for suspected exposure to other biological agents ruled out
CPT/HCPCS: 0241U; 36415; 71045; 80053; 82803; 83735; 83880; 84484; 85025; 85610; 93005; 99284

== ENCOUNTER → 2024-11-13 12:35 | Outpatient (BNV) | payer MEDICARE, SELFPAY | PROVIDERS: Emergency Provider Emergency Medicine; PCP Internal Medicine; Visit Provider Radiology Diagnostic Radiology | DX: J84.10 Pulmonary fibrosis, unspecified (principal) | CPT/HCPCS: 71045 ==

== ENCOUNTER → 2024-11-13 12:35 | Outpatient (BNV) | payer MEDICARE, SELFPAY | PROVIDERS: Emergency Provider Emergency Medicine; PCP Internal Medicine; Visit Provider Internal Medicine Cardiovascular Disease | DX: I49.1 Atrial premature depolarization (principal); I44.4 Left anterior fascicular block | CPT/HCPCS: 93010 ==

== ENCOUNTER 2025-02-02 16:10 | Emergency (ER) | payer MEDICARE, SELFPAY ==
[2025-02-02] VITALS (13 sets, daily range): BP systolic 119–149; BP diastolic 46–84; PULSE 74–100; RESP 18–20; TEMP 36.7–36.9; O2SAT 94–99; BMI 30.3
--- NOTE | ~2025-02-02 | CT_ITS ---
CLINICAL HISTORY: R sided weakness facial droop CT head without contrast Comparison: CT/SR - CT HEAD/BRAIN WO IV CON - 02/17/24 23:26 EDT Findings: Involutional change and nonspecific white matter hypodensity. No intracranial mass, midline shift, hydrocephalus, or acute hemorrhage. Orbits, paranasal sinuses, and mastoid air cells are unremarkable. No skull fracture Impression: 1. No acute findings This document has been electronically signed by: Leidy Ybarra MD on 02/02/2025 16:56:12
--- NOTE | ~2025-02-02 | XR_ITS ---
CLINICAL HISTORY: weakness, AMS 1 view chest x-ray Comparison: CR/SR - XR CHEST 1V - 11/13/24 13:22 EST Findings: Minimal left basilar opacities. No consolidative process. Normal size heart. No acute fracture. IMPRESSION: Minimal left basilar opacities likely secondary to atelectasis or scarring. This document has been electronically signed by: Leidy Ybarra MD on 02/02/2025 17:10:43
--- NOTE | ~2025-02-02 | CT_ITS ---
CLINICAL HISTORY: R sided weakness R sided facial droop CT angiography head and neck with contrast. 3D Postprocessing. Comparison: CT/SR - CT HEAD FOR STROKE - 02/02/25 16:20 EDT Findings: Aortic arch and cervical great vessels are patent with no aneurysm, dissection, hemodynamically significant stenoses, or occlusion. Small focus of wall calcification at the level of the right carotid bulb without stenosis. Intracranial arteries are patent. No aneurysm, dissection, hemodynamically significant stenoses, or occlusion. No abnormal intracranial enhancement. There are multiple subcentimeter nodules within the thyroid gland. No consolidation or pleural effusion. Linear focus of atelectasis or scarring at the left lung apex. No acute fracture. IMPRESSION: Patent head and neck CTA. This document has been electronically signed by: Leidy Ybarra MD on 02/02/2025 17:26:47
--- NOTE | 2025-02-02 16:15 | ECG_ITS ---
Test Reason : STROKE Blood Pressure : */* mmHG Vent. Rate : 92 BPM Atrial Rate : 92 BPM P-R Int : 124 ms QRS Dur : 78 ms QT Int : 406 ms P-R-T Axes : 56 -56 40 degrees QTcB Int : 502 ms Normal sinus rhythm Left axis deviation Inferior infarct , age undetermined Anterolateral infarct (cited on or before 17-Jul-2024) Abnormal ECG When compared with ECG of 13-Nov-2024 12:42, Premature atrial complexes are no longer Present Referred By: Brittaney Alvarez Electronically Signed By: Jaleel Segura
--- NOTE | 2025-02-02 16:16 | ED_ITS ---
HPI - General Adult General Chief complaint: Weakness Stated complaint: dementia worse altered mental status Time Seen by Provider: 02/02/25 16:15 Source: patient, family (patient's daughter) and EMS Mode of arrival: EMS Limitations: physical limitation (patient is demented at baseline) History of Present Illness ED Provider: Brittaney Alvarez PA-C HPI narrative: Patient is an 79 year old assigned female at with a history of dementia, DM, HLD, and HTN presenting to the emergency department today with increased confusion and concern for a stroke. [facility] staff stated the patient has been acting abnormal over the last 3 days, unable to follow commands, slurred speech and right sided facial droop. Patient's daughter states that she saw the patient yesterday and noticed a little bit of the right sided facial droop but was not sure what to make of it. Patient's daughter confirmed the patient is DNR/DNI. Patient is unable to answer questions, confused. Related Data Home Medications ?Medication ?Instructions ?Recorded ?Confirmed atorvastatin 20 mg tablet 20 mg PO DAILY 02/18/24 07/18/24 donepezil 10 mg tablet 10 mg PO BEDTIME 02/18/24 07/18/24 memantine 21 mg capsule 21 mg PO DAILY 02/18/24 07/18/24 sprinkle,extended release 24hr metformin 500 mg tablet,extended 1,500 mg PO DAILY@1800 02/18/24 07/18/24 release 24 hr valsartan 80 mg tablet 80 mg PO DAILY 02/18/24 07/18/24 Previous Rx's ?Medication ?Instructions ?Recorded oseltamivir 75 mg capsule (Tamiflu) 75 mg PO BID 5 days #10 caps 11/13/24 Allergies Allergy/AdvReac Type Severity Reaction Status Date / Time No Known Allergies Allergy Verified 02/02/25 16:59 Review of Systems 2 Review of Systems: Yes Unobtainable due to mental status Neurologic: Reports confusion (per her baseline) Psychiatric: Psychiatric: Reports confusion (per her baseline) [facility] Past Medical History Attestation statement: The following information was validated with the patient. (all information validated with the patient's daughter) Source: old records reviewed, obtained from family (patient's daughter provided additional history) and nursing notes reviewed Medical History Dementia Social History Social History Household Members: Unknown / Unable to assess Housing: Unknown / Unable to assess Unable to assess alcohol history related to: Unable to respond Patient Tobacco Use Status: Never used Tobacco Smoked in Last 30 Days: No Use of substances other than those prescribed or required for medical reasons: No Advance Directives Date on File: 02/17/24 Do you have a plan to hurt others: No Plan service: No Physical Exam ED Vital Signs: Vital Signs - 24 hr 02/02/25 16:15 02/02/25 17:13 Temperature 98.5 F 98.0 F Pulse Rate 87 100 Respiratory Rate 20 20 Blood Pressure 149/62 H 146/61 H Pulse Oximetry 94 99 Oxygen Delivery Method Room Air Room Air BMI result Body Mass Index 30.3 Const General: confusion (per her baseline) Orientation/consciousness: confusion (per her baseline) Limitations: altered mental status HENMT Head: Yes normal to inspection and Yes atraumatic Ears: hearing grossly normal bilaterally and external ears normal General nose exam: Normal external nose present, no nasal discharge noted and no epistaxis Face and sinus: No abrasion and No laceration Mouth: Normal oral and palatal mucosa present, no drooling and no muffled voice Eyes General: appearance normal, both eyes and all related structures Periorbital: periorbital findings normal Eyelids: Yes eyelids normal Conjunctivae: conjunctivae normal Pupils: Equal, round and reactive pupils present EOM: EOMs intact bilaterally Neck Neck: Yes normal visual inspection, Yes full ROM and Yes no lymphadenopathy Resp Effort & Inspection: normal respiratory effort and able to speak in complete sentences Neuro General: confusion (per her baseline) Cranial nerves: Yes Equal, round and reactive pupils present Extrem General: Yes normal to inspection, Yes full ROM and Yes capillary refill normal Psych Appearance: grossly normal Mental Status: mental status grossly normal Affect: normal affect Attitude: cooperative Thought process: Normal thought process present Thought content: Normal thought content present Insight: Good insight present (Psych) Course Course Course Narrative: I presented the case to our high man, Dr. Huitron who declined to admit the patient due to lack of ICU beds. I called and spoke with the [facility] transfer center who informed me they are at capacity and cannot accept the patient as a transfer. I called and spoke with the [facility] transfer center who stated they are at capacity and cannot accept the patient as a transfer. I called and spoke with the [facility] transfer center who stated they are at capacity and cannot accept the patient as a transfer. I called and spoke with [facility] who agreed to transfer to [facility] in [facility], [id number] Ross Azul. Medications Administered Generic Name Dose Route Start Last Admin Trade Name Freq PRN Reason Stop Dose Admin Insulin Human Regular 100 unit in 100 mls @ 9 mls/hr 02/02/25 17:30 02/02/25 18:09 Myxredlin IVCONT 9 unit/hr .Q11H7M NAN 9 mls/hr Administration Protocol 9 UNIT/HR Discontinued Medications Generic Name Dose Route Start Last Admin Trade Name Freq PRN Reason Stop Dose Admin Diazepam 2.5 mg 02/02/25 17:38 02/02/25 18:04 Diazepam 10 Mg/2 Ml Cartridge IVPUSH 02/02/25 17:39 2.5 mg STAT STA Administration Lactated Ringer's 1,000 mls @ 999 mls/hr 02/02/25 16:45 02/02/25 18:12 Lr IV 02/02/25 17:45 Infused .Q1H1M NAN Infusion Lactated Ringer's 1,000 mls @ 999 mls/hr 02/02/25 17:45 02/02/25 17:51 Lr IV 02/02/25 18:45 999 mls/hr .Q1H1M NAN Administration Insulin Human Regular 9 unit 02/02/25 18:15 02/02/25 18:22 Insulin Regular, Human 100 Unit/Ml 10 Ml Vial 0.1 unit/kg (9 unit) 02/02/25 18:16 9 unit IVPUSH Administration ONCE ONE Iohexol 100 ml 02/02/25 16:29 02/02/25 16:30 Iohexol 350 Mg/Ml 100 Ml Infus..Btl IV 02/02/25 16:30 70 ml ONCE ONE Administration Medical Decision Making Medical Decision Making MDM Narrative: Patient is an 79 year old assigned female at with a history of dementia, DM, HLD, and HTN presenting to the emergency department today with increased confusion and concern for a stroke. Patient's physical exam was as noted in the physical exam portion of this note. Patient's blood work showed sodium 146 (corrected 159), potassium 5.2, gap 22, BUN 35, CR 2.02, glucose 922, beta hydroxy 0.81. Patient's EKG was unremarkable. Patient's chest x-ray showed no acute process. Patient's CT / CTA head + neck showed no acute process. I explained my physical exam findings as well as all test results to the patient and the patient's daughter. I answered all questions asked by the patient's daughter. Patient was given 2 liters of lactated ringers, 9 units of bolus insulin, and started on an insulin drip. I attempted to admit the patient to our ICU however, after presenting the patient to Dr. Huitron, he informed me we have no ICU beds. I then attempted to transfer the patient to [facility], [facility], [facility] and they all declined due to capacity. [facility] accepted to [facility] in [facility]. Patient accepted by Dr. Ross Azul. Patient's daughter verbalized agreement and understanding with this treatment plan and transfer Differential Diagnosis Differential Diagnoses: The differential diagnosis associated with the presentation includes DKA Hyperglycemia AMS Admission/Observation Consideration of admission/observation: Escalation of care including admission/observation considered Patient would have been admitted to [facility] had we had ICU beds. Patient transferred to [facility] as noted in the MDM Rationale portion of this note. Lab Data [facility] Lab Attestation statement: I reviewed the patient's lab results. My interpretation of these results are in the MDM Rationale portion of this note. 02/02/25 16:22 02/02/25 16:22 Labs: Lab Results 02/02/25 02/02/25 02/02/25 Range/Units 16:17 16:22 16:23 WBC 10.5 (4.8-10.8) X10*3/uL RBC 5.70 H (4.20-5.50) X10*6/uL Hgb 16.9 H (12.0-16.0) g/dl Hct 51.9 H D (37.0-47.0) % MCV 91.1 (80.0-98.0) fL MCH 29.6 (27.0-33.0) pg MCHC 32.6 (31.0-35.0) g/dl RDW 12.4 (11.0-16.0) % Plt Count 249 D (160-400) X10*3/uL MPV 10.0 (9.4-12.3) fL Immature Gran % (Auto) 0.3 (0.0-0.4) % Neut % (Auto) 79.3 H (45-73) % Lymph % (Auto) 13.9 L (20-40) % Barber % (Auto) 6.0 (2-11) % Eos % (Auto) 0.1 (0-4) % Baso % (Auto) 0.4 (0-2) % Lymph # (Auto) 1.5 (1.2-4.9) X10*3/uL Barber # (Auto) 0.6 (0.1-1.2) X10*3/uL Eos # (Auto) 0.0 (0.0-0.4) X10*3/uL Baso # (Auto) 0.0 (0.0-0.2) X10*3/uL Abs Immat Gran (auto) 0.03 (0.00-0.03) X10*3/uL Absolute Neuts (auto) 8.4 H (2.0-8.3) x10*3/uL Absolute Nucleated RBC 0.000 (0.0-0.012) X10*3/uL Nucleated RBC % (auto) 0.0 (0.0-0.2) /100WBC PT 11.8 (10.9-12.4) SEC INR 1.0 (0.9-1.1) APTT 29.3 (26.0-36.8) SEC VBG pH (7.32-7.43) VBG pCO2 mmHg VBG pO2 mmHg VBG HCO3 (22-26) mmol/L VBG O2 Saturation % VBG Base Excess mmol/L Sodium 146 H (135-145) mmol/L Potassium 5.2 H (3.3-5.1) mmol/L Chloride 109 H (96-108) mmol/L Carbon Dioxide 20 L (22-29) mmol/L Anion Gap 22 H (12-20) BUN 35 H (9-16) mg/dL Creatinine 2.02 H (0.5-1.4) mg/dL Estim Creat Clear Calc 24.0 Estimated GFR 24 POC Glucose > 600 H* > 600 H* (60-115) mg/dL Random Glucose 922 H* (60-115) mg/dL Calcium 9.2 D (8.4-10.2) mg/dL Magnesium 3.0 H (1.6-2.6) mg/dL Troponin I High Sens 6.7 D (<3.5-17.0) ng/L Triglycerides 285 H (<150) mg/dL Cholesterol 152 (<200) mg/dL LDL Cholesterol, Calc 58 (<100) mg/dL HDL Cholesterol 37 L (>40) mg/dL Beta-Hydroxybutyrate 0.81 H (0.02-0.27) mmol/L Urine Color Urine Appearance Urine pH (5.0-9.0) Ur Specific [place] (1.005-1.025) Urine Protein (Neg-Trace) mg/dL Urine Glucose (UA) (Negative) mg/dL Urine Ketones (Negative) mg/dL Urine Blood (Negative) Urine Nitrite (Negative) Ur Leukocyte Esterase (Negative) Urine RBC (0-2) /HPF Urine WBC (0-5) /HPF Ur Squamous Epith Cells (0-2) /HPF Urine Bacteria (None Seen) Hyaline Casts (0-2) /LPF 02/02/25 02/02/25 02/02/25 Range/Units 17:59 18:02 18:11 WBC (4.8-10.8) X10*3/uL RBC (4.20-5.50) X10*6/uL Hgb (12.0-16.0) g/dl Hct (37.0-47.0) % MCV (80.0-98.0) fL MCH (27.0-33.0) pg MCHC (31.0-35.0) g/dl RDW (11.0-16.0) % Plt Count (160-400) X10*3/uL MPV (9.4-12.3) fL Immature Gran % (Auto) (0.0-0.4) % Neut % (Auto) (45-73) % Lymph % (Auto) (20-40) % Barber % (Auto) (2-11) % Eos % (Auto) (0-4) % Baso % (Auto) (0-2) % Lymph # (Auto) (1.2-4.9) X10*3/uL Barber # (Auto) (0.1-1.2) X10*3/uL Eos # (Auto) (0.0-0.4) X10*3/uL Baso # (Auto) (0.0-0.2) X10*3/uL Abs Immat Gran (auto) (0.00-0.03) X10*3/uL Absolute Neuts (auto) (2.0-8.3) x10*3/uL Absolute Nucleated RBC (0.0-0.012) X10*3/uL Nucleated RBC % (auto) (0.0-0.2) /100WBC PT (10.9-12.4) SEC INR (0.9-1.1) APTT (26.0-36.8) SEC VBG pH (7.32-7.43) VBG pCO2 mmHg VBG pO2 mmHg VBG HCO3 (22-26) mmol/L VBG O2 Saturation % VBG Base Excess mmol/L Sodium (135-145) mmol/L Potassium (3.3-5.1) mmol/L Chloride (96-108) mmol/L Carbon Dioxide (22-29) mmol/L Anion Gap (12-20) BUN (9-16) mg/dL Creatinine (0.5-1.4) mg/dL Estim Creat Clear Calc Estimated GFR POC Glucose > 600 H* > 600 H* (60-115) mg/dL Random Glucose (60-115) mg/dL Calcium (8.4-10.2) mg/dL Magnesium (1.6-2.6) mg/dL Troponin I High Sens (<3.5-17.0) ng/L Triglycerides (<150) mg/dL Cholesterol (<200) mg/dL LDL Cholesterol, Calc (<100) mg/dL HDL Cholesterol (>40) mg/dL Beta-Hydroxybutyrate (0.02-0.27) mmol/L Urine Color Yellow Urine Appearance Clear Urine pH 6.0 (5.0-9.0) Ur Specific [place] >= 1.030 H (1.005-1.025) Urine Protein Negative (Neg-Trace) mg/dL Urine Glucose (UA) >=1000 H (Negative) mg/dL Urine Ketones Trace (Negative) mg/dL Urine Blood Negative (Negative) Urine Nitrite Negative (Negative) Ur Leukocyte Esterase Negative (Negative) Urine RBC 0-2 (0-2) /HPF Urine WBC 0-5 (0-5) /HPF Ur Squamous Epith Cells 0-2 (0-2) /HPF Urine Bacteria None Seen (None Seen) Hyaline Casts 0-2 (0-2) /LPF 02/02/25 Range/Units 18:17 WBC (4.8-10.8) X10*3/uL RBC (4.20-5.50) X10*6/uL Hgb (12.0-16.0) g/dl Hct (37.0-47.0) % MCV (80.0-98.0) fL MCH (27.0-33.0) pg MCHC (31.0-35.0) g/dl RDW (11.0-16.0) % Plt Count (160-400) X10*3/uL MPV (9.4-12.3) fL Immature Gran % (Auto) (0.0-0.4) % Neut % (Auto) (45-73) % Lymph % (Auto) (20-40) % Barber % (Auto) (2-11) % Eos % (Auto) (0-4) % Baso % (Auto) (0-2) % Lymph # (Auto) (1.2-4.9) X10*3/uL Barber # (Auto) (0.1-1.2) X10*3/uL Eos # (Auto) (0.0-0.4) X10*3/uL Baso # (Auto) (0.0-0.2) X10*3/uL Abs Immat Gran (auto) (0.00-0.03) X10*3/uL Absolute Neuts (auto) (2.0-8.3) x10*3/uL Absolute Nucleated RBC (0.0-0.012) X10*3/uL Nucleated RBC % (auto) (0.0-0.2) /100WBC PT (10.9-12.4) SEC INR (0.9-1.1) APTT (26.0-36.8) SEC VBG pH 7.52 H (7.32-7.43) VBG pCO2 23 mmHg VBG pO2 223 mmHg VBG HCO3 19 L (22-26) mmol/L VBG O2 Saturation 100.0 % VBG Base Excess -1.4 mmol/L Sodium (135-145) mmol/L Potassium (3.3-5.1) mmol/L Chloride (96-108) mmol/L Carbon Dioxide (22-29) mmol/L Anion Gap (12-20) BUN (9-16) mg/dL Creatinine (0.5-1.4) mg/dL Estim Creat Clear Calc Estimated GFR POC Glucose (60-115) mg/dL Random Glucose (60-115) mg/dL Calcium (8.4-10.2) mg/dL Magnesium (1.6-2.6) mg/dL Troponin I High Sens (<3.5-17.0) ng/L Triglycerides (<150) mg/dL Cholesterol (<200) mg/dL LDL Cholesterol, Calc (<100) mg/dL HDL Cholesterol (>40) mg/dL Beta-Hydroxybutyrate (0.02-0.27) mmol/L Urine Color Urine Appearance Urine pH (5.0-9.0) Ur Specific [place] (1.005-1.025) Urine Protein (Neg-Trace) mg/dL Urine Glucose (UA) (Negative) mg/dL Urine Ketones (Negative) mg/dL Urine Blood (Negative) Urine Nitrite (Negative) Ur Leukocyte Esterase (Negative) Urine RBC (0-2) /HPF Urine WBC (0-5) /HPF Ur Squamous Epith Cells (0-2) /HPF Urine Bacteria (None Seen) Hyaline Casts (0-2) /LPF Independent Interpretation I performed an independent interpretation of an: EKG, Plain X-Ray and CT Scan Interpretation: My interpretation is in agreement with the radiologist's impression of these imaging studies. L Report Number: [id number]: Total DLP = 660.00 mGy-cm CLINICAL HISTORY: R sided weakness R sided facial droop CT angiography head and neck with contrast. 3D Postprocessing. Comparison: CT/SR - CT HEAD FOR STROKE - 02/02/25 16:20 EDT Findings: Aortic arch and cervical great vessels are patent with no aneurysm, dissection, hemodynamically significant stenoses, or occlusion. Small focus of wall calcification at the level of the right carotid bulb without stenosis. Intracranial arteries are patent. No aneurysm, dissection, hemodynamically significant stenoses, or occlusion. No abnormal intracranial enhancement. There are multiple subcentimeter nodules within the thyroid gland. No consolidation or pleural effusion. Linear focus of atelectasis or scarring at the left lung apex. No acute fracture. IMPRESSION: Patent head and neck CTA. This document has been electronically signed by: Leidy Ybarra MD on 02/02/2025 17:26:47 Dictated By: Leidy Ybarra MD Signed By: Electronically signed by Leidy Ybarra MD 02/02/25 1728 CLINICAL HISTORY: weakness, AMS 1 view chest x-ray Comparison: CR/SR - XR CHEST 1V - 11/13/24 13:22 EST Findings: Minimal left basilar opacities. No consolidative process. Normal size heart. No acute fracture. IMPRESSION: Minimal left basilar opacities likely secondary to atelectasis or scarring. This document has been electronically signed by: Leidy Ybarra MD on 02/02/2025 17:10:43 Dictated By: Leidy Ybarra MD Signed By: Electronically signed by Leidy Ybarra MD 02/02/25 1711 This document has been electronically signed by: Leidy Ybarra MD on 02/02/2025 16:56:12 ADDENDUM: This report was discussed with Pamela Aragon RN on February 02, 2025 17:00:00 EDT. This document has been electronically signed by: Shruti Quinteros on 02/02/2025 17:01:26 Addendum Dictated By: Leidy Ybarra MD Addendum Signed By: Electronically signed by Leidy Ybarra MD 02/02/251700 Addendum Cosigned By: DD/ TD/TT: 02/02/25 CLINICAL HISTORY: R sided weakness facial droop CT head without contrast Comparison: CT/SR - CT HEAD/BRAIN WO IV CON - 02/17/24 23:26 EDT Findings: Involutional change and nonspecific white matter hypodensity. No intracranial mass, midline shift, hydrocephalus, or acute hemorrhage. Orbits, paranasal sinuses, and mastoid air cells are unremarkable. No skull fracture Impression: 1. No acute findings This document has been electronically signed by: Leidy Ybarra MD on 02/02/2025 16:56:12 Dictated By: Leidy Ybarra MD Signed By: Electronically signed by Leidy Ybarra MD 02/02/251656 I independently interpreted this EKG and am in agreement with the below findings: Vent. Rate: 92 BPM ? ? Atrial Rate: 92 BPM P-R Int: 124 ms? QRS Dur: 78 ms QT Int: 406 ms ? P-R-T Axes: 56 -56 40 degrees QTc Int: 502 ms ? Normal sinus rhythm DD/ Radiology Impression Discussion of test interpretation with radiology: I have reviewed the radiologist's reading. Independent Historian Clinical information obtained from an independent historian. History obtained from or confirmed by: EMS (EMS provided additional history) and Other (Patient's daughter provided additional history) Chronic Conditions Patient?s care impacted by: Diabetes Critical Care Time Critical Care Time Critical Care Time: Yes Total Critical Care Time: 49 Attestation: I spent 49 minutes of Critical Care Time with this patient. This does not include time spent on separately reported billable procedures. Discharge Plan Discharge Clinical Impression: DKA (diabetic ketoacidosis) Patient Disposition: er Acute Care Hospital Transfer Details: [facility] Prescriptions: No Action atorvastatin 20 mg tablet 20 mg PO DAILY donepezil 10 mg tablet 10 mg PO BEDTIME valsartan 80 mg tablet 80 mg PO DAILY metformin 500 mg tablet extended release 24 hr 1,500 mg PO DAILY@1800 memantine 21 mg capsule,sprinkle,ER 24hr 21 mg PO DAILY oseltamivir [Tamiflu] 75 mg capsule 75 mg PO BID 5 Days Qty: 10 0RF Print Language: Icelandic
[2025-02-02 16:27] LABS: Glucose, Whole Blood > 600 mg/dL (60-115)
[2025-02-02 16:27] LABS: Glucose, Whole Blood > 600 mg/dL (60-115)
[2025-02-02] MEDS: iohexoL 350 MG/ML 100 ML INFUS..BTL IV (16:30)
[2025-02-02 16:33] LABS: MANUAL DIFF FLAG NO
[2025-02-02 16:43] LABS: Basophils Percent Auto 0.4 % (0-2); Eosinophils Percent Auto 0.1 % (0-4); Hematocrit 51.9 % (37.0-47.0); Hemoglobin 16.9 g/dl (12.0-16.0); Imm Gran Abs Auto 0.03 X10*3/uL (0.00-0.03); Imm Gran Pct Auto 0.3 % (0.0-0.4); Lymphocytes Absolute Auto 1.5 X10*3/uL (1.2-4.9); Lymphocytes Percent Auto 13.9 % (20-40); Mean Corpuscular HGB Conc 32.6 g/dl (31.0-35.0); Mean Corpuscular Hemoglobin 29.6 pg (27.0-33.0); Mean Corpuscular Volume 91.1 fL (80.0-98.0); Monocytes Absolute Auto 0.6 X10*3/uL (0.1-1.2); Neutrophils Absolute Auto 8.4 x10*3/uL (2.0-8.3); Neutrophils Percent Auto 79.3 % (45-73); Platelet Count 249 X10*3/uL (160-400); Red Cell Distribution Width 12.4 % (11.0-16.0); White Blood Count 10.5 X10*3/uL (4.8-10.8)
--- NOTE | 2025-02-02 16:45 | PC.NURSE ---
Pt. back to room from CT and changed to a gown and received additional hx from daughter whom is at bedside.
--- NOTE | 2025-02-02 16:46 | MHC.EDTECH ---
Unable to chart on [facility] INR because INR machine number in not accurate in system .
[2025-02-02 16:52] LABS: Prothrombin Time 11.8 SEC (10.9-12.4)
[2025-02-02 16:55] LABS: Partial Thromboplastin Time 29.3 SEC (26.0-36.8)
[2025-02-02 17:13] LABS: Stroke Lab Use COMPLETE
--- NOTE | 2025-02-02 17:14 | MHC.EDTECH ---
Patient was biba from snf ,stroke INR done ,,blood sugar check ,ekg taken and was read by Provider,Blood drawn and sent to lab ,Patient was change into hospital attire and hooked up to technician automatic ,Pure wick in Place ,All safety measure in Place ,Patient resting quietly in bed ,Patient daughter at bedside .
[2025-02-02 17:17] LABS: Troponin-I High Sensitivity 6.7 ng/L (<3.5-17.0)
[2025-02-02 17:20] LABS: Anion Gap 22 (12-20); Beta-Hydroxybutyrate 0.81 mmol/L (0.02-0.27); Blood Urea Nitrogen 35 mg/dL (9-16); Calcium 9.2 mg/dL (8.4-10.2); Carbon Dioxide 20 mmol/L (22-29); Chloride 109 mmol/L (96-108); Cholesterol 152 mg/dL (<200); Estimated Glomerular Filt Rate 24; HDL Cholesterol 37 mg/dL (>40); LDL Cholesterol Calculated 58 mg/dL (<100); Potassium 5.2 mmol/L (3.3-5.1); Sodium 146 mmol/L (135-145); Triglycerides 285 mg/dL (<150)
[2025-02-02] MEDS: Lactated Ringers 1,000 ML 999 ML IV ×2 (17:25→17:51)
[2025-02-02 17:35] LABS: Glucose Random 922 mg/dL (60-115)
[2025-02-02] MEDS: diazePAM 10 MG/2 ML CARTRIDGE 2.5 MG IVPUSH (18:04)
[2025-02-02] MEDS: Insulin Regular/NS 100 UNIT/100 ML PLAST..BAG 9 UNIT IVCONT (18:09)
--- NOTE | 2025-02-02 18:11 | PC.NURSE ---
Awaiting med from pharm.
--- NOTE | 2025-02-02 18:13 | MHC.EDTECH ---
Patient vbg drawn ,urine sample collected all sent to lab ,Patient blood sugar checked ,read HI both times ,qc done ,blood sugar repeated .RN aware .
[2025-02-02 18:16] LABS: Glucose, Whole Blood > 600 mg/dL (60-115)
[2025-02-02 18:16] LABS: Glucose, Whole Blood > 600 mg/dL (60-115)
[2025-02-02 18:19] LABS: Appearance Urine Clear; Color Urine Yellow; Glucose Urine UA >=1000 mg/dL (Negative); Leukocyte Esterase Urine Negative (Negative); Nitrite Urine Negative (Negative); Specific Gravity - Urine >= 1.030 (1.005-1.025); UMIC TRIGGER UACC YES; Urine Blood Negative (Negative); Urine Ketones Trace mg/dL (Negative); Urine Protein Negative (Neg-Trace)
[2025-02-02] MEDS: Insulin Regular, Human 100 UNIT/ML 10 ML VIAL 9 UNIT IVPUSH (18:22)
[2025-02-02 18:25] LABS: Bacteria Urine None Seen (None Seen); Hyaline Casts Urine 0-2 /LPF (0-2); RBC Urine 0-2 /HPF (0-2); Squamous Epithelial Cell Urine 0-2 /HPF (0-2); WBC Urine 0-5 /HPF (0-5)
[2025-02-02 18:33] LABS: VBG Base Excess -1.4 mmol/L; VBG HCO3 19 mmol/L (22-26); VBG pCO2 23 mmHg; VBG pH 7.52 (7.32-7.43); VBG pO2 223 mmHg
[2025-02-02 18:47] LABS: Venous Blood Gas Refer to POC result
[2025-02-02 19:28] LABS: Glucose, Whole Blood 489 mg/dL (60-115)
--- NOTE | 2025-02-02 19:58 | PC.NURSE ---
Report given to SWAPNIL Pena at [facility], Melba Bird/Yohana set up for 2015.
--- NOTE | 2025-02-02 20:21 | PC.NURSE ---
Daughter: Rachel: Son: Gallito
[2025-02-03 10:28] LABS: Prothrombin Time Whole Bld POC 13.1 sec (11.1-13.5); ~PT, ~INR - Anti Coag Clinic 1.1 (0.9-1.1)
== END 2025-02-02 20:32 | disposition short-term general hospital (02) ==
PROVIDERS: Physician Assistant Medical; Emergency Provider Emergency Medicine Emergency Medical Services; PCP Internal Medicine
DX: E11.10 Type 2 diabetes mellitus with ketoacidosis without coma (principal); E04.1 Nontoxic single thyroid nodule; R41.0 Disorientation, unspecified; R29.703 NIHSS score 3; R41.82 Altered mental status, unspecified; R29.810 Facial weakness; R47.81 Slurred speech; I10 Essential (primary) hypertension; E78.5 Hyperlipidemia, unspecified; Z79.899 Other long term (current) drug therapy; Z66 Do not resuscitate
CPT/HCPCS: 36415; 70450; 70496; 70498; 71045; 80048; 80061; 81001; 82010; 82803; 82947; 83735; 84484; 85025; 85610; 85730; 93005; 96361; 96374; 96375; 99285; J3360; J7120; Q9967

== ENCOUNTER → 2025-02-02 16:15 | Outpatient (BNV) | payer MEDICARE, SELFPAY | PROVIDERS: Visit Provider Radiology Diagnostic Radiology | DX: R53.1 Weakness (principal); R29.810 Facial weakness | CPT/HCPCS: 70450; 70496; 70498; 71045 ==

== ENCOUNTER → 2025-02-02 16:15 | Outpatient (BNV) | payer MEDICARE, SELFPAY | PROVIDERS: Emergency Provider Emergency Medicine Emergency Medical Services; PCP Internal Medicine; Visit Provider Internal Medicine Cardiovascular Disease | DX: I25.2 Old myocardial infarction (principal) | CPT/HCPCS: 93010 ==

== ENCOUNTER 2025-08-16 09:43 | Outpatient (REF) | payer MEDICARE, SELFPAY ==
--- OUTSIDE RECORDS SUMMARY | 2024-03-29 06:00 | XMS_ITS ---
Author Organization [facility] Address [address] [place] [address] Care Team Providers Care Ultrasonic Hand Solderer Name Role Phone Daniele Morgan MD, Rachel Primary Care Provider U Aaron Abrams Unavailable [phone] Encounters Encounter Location Date Provider Diagnosis [address] [address] 03/29/2024 Aaron Wilkes Plan Of Treatment Next Appt Details Provider Name:Aaron Wilkes , 10/03/2025 09:00:00 AM, [address] [place] [address], [id number], Progress Notes * Jackie MISTRYDOB:[birth year] (80 yo F)Acc No.[id number]:03/29/2024 Progress Note Patient: Ginger MANCINIsharon Hwang Provider: Liset Wilkes DPM :1945 A ge:79 Y S ex:Female Date:03/29/2024 Address:[address] [place] [address] Pcp:Rachel Morgan MD Subjective: * Chief Complaints: * * Medical History: Objective: * Vitals: Assessment: Plan: * Treatment: * Images: * The named appointment provid er may or may not be the originator of this progress note, and it is not deemed complete until electronically signed by the appointment provider. Sign off status: Pending * Provider: Liset Wilkes DPM Date: 0 03/29/2024 Generated for Louise martin/Kalen/Armond on: 10/16/2024 09:48 AM EST
--- OUTSIDE RECORDS SUMMARY | 2024-06-11 05:00 | XMS_ITS ---
Author Organization [facility] Address [address] [place] [address] Care Team Providers Care Cnc Milling Machinist Name Role Phone Daniele Morgan MD, Rachel Primary Care Provider U Aaron Abrams Unavailable [phone] Encounters Encounter Location Date Provider Diagnosis [address] [address] 06/11/2024 Aaron Wilkes Plan Of Treatment Next Appt Details Provider Name:Aaron Wilkes , 10/03/2025 09:00:00 AM, [address] [place] [address], [id number], Progress Notes * Jackie MISTRYDOB:[birth year] (80 yo F)Acc No.[id number]:06/11/2024 Progress Note Patient: Ginger MANCINIsharon Hwang Provider: Liset Wilkes DPM :1945 A ge:79 Y S ex:Female Date:06/11/2024 Address:[address] [place] [address] Pcp:Rachel Morgan MD Subjective: * Chief Complaints: * * Medical History: Objective: * Vitals: Assessment: Plan: * Treatment: * Images: * The named appointment provid er may or may not be the originator of this progress note, and it is not deemed complete until electronically signed by the appointment provider. Sign off status: Pending * Provider: Liset Wilkes DPM Date: 0 06/11/2024 Generated for Louise martin/Kalen/Armond on: 10/16/2024 09:48 AM EST
--- OUTSIDE RECORDS SUMMARY | 2024-08-27 09:30 | XMS_ITS ---
Author Organization [facility] Address [address] [place] [address] Care Team Providers Care Cake Puncher Name Role Phone Daniele Morgan MD, Rachel Primary Care Provider U Aaron Abrams Unavailable [phone] Encounters Encounter Location Date Provider Diagnosis [address] [address] 08/27/2024 Aaron Wilkes Plan Of Treatment Next Appt Details Provider Name:Aaron Wilkes , 10/03/2025 09:00:00 AM, [address] [place] [address], [id number], Progress Notes * Jackie MISTRYDOB:[birth year] (80 yo F)Acc No.[id number]:08/27/2024 Progress Note Patient: Ginger MANCINIsharon Hwang Provider: Liset Wilkes DPM :1945 A ge:79 Y S ex:Female Date:08/27/2024 Address:[address] [place] [address] Pcp:Rachel Morgan MD Subjective: * Chief Complaints: * * Medical History: Objective: * Vitals: Assessment: Plan: * Treatment: * Images: * The named appointment provid er may or may not be the originator of this progress note, and it is not deemed complete until electronically signed by the appointment provider. Sign off status: Pending * Provider: Liset Wilkes DPM Date: 10/28/2023 Generated for Louise martin/Kalen/Armond on: 10/16/2024 09:48 AM EST
--- NOTE | ~2025-08-16 | CT_ITS ---
CLINICAL HISTORY: cough wheeze CT chest without contrast Comparison: None provided Findings: Examination is limited by breathing motion artifact. NECK BASE: Limited views of the thyroid are unremarkable. LUNGS/PLEURA: No focal consolidation. Mild atelectasis at the bases. PULM VASCULAR: Poorly evaluated without IV contrast. MEDIASTINUM: No masses or lymphadenopathy. CARDIAC: No pericardial effusion. No cardiomegaly. AORTA: No aneurysm. CHEST WALL: No masses or axillary lymphadenopathy. LIMITED ABDOMEN: Limited views are unremarkable. BONES: No acute fracture. IMPRESSION: 1. Examination is limited by breathing motion artifact. Mild atelectasis at the lung bases. This document has been electronically signed by: Mónica Lin MD on 08/18/2025 19:04:00
--- OUTSIDE RECORDS SUMMARY | 2025-08-16 09:48 | XMS_ITS ---
Author Name [facility] Organization Unknown Results Test Name/Text Value Interpretation Date Range Source POC Glucose 263.0 mg/dL Above high normal 02/07/2025 65 - 99 [facility] POC Glucose 184.0 mg/dL Above high normal 02/07/2025 65 - 99 [facility] POC Glucose 134.0 mg/dL Above high normal 02/07/2025 65 - 99 [facility] POC Glucose 248.0 mg/dL Above high normal 02/07/2025 65 - 99 [facility] POC Glucose 322.0 mg/dL Above high normal 02/06/2025 65 - 99 [facility] POC Glucose 281.0 mg/dL Above high normal 02/06/2025 65 - 99 [facility] POC Glucose 278.0 mg/dL Above high normal 02/06/2025 65 - 99 [facility] Anion Gap Bld-sCnc 13.0 02/06/2025 4 - 16 [facility] Creat SerPl-mCnc 0.9 mg/dL 02/06/2025 0.4 - 1.1 HH CCT GFR/BSA.pred SerPlBld RWS-CPV-TrCNzr 64.0 02/06/2025 59 - HHCCT Potassium SerPl-sCnc 4.1 mmol/L 02/06/2025 3.4 - 5 .3 [facility] Glucose SerPl-mCnc 240.0 mg/dL Above high normal 02/06/2025 65 - 99 [facility]CT Calcium SerPl-mCnc 8.6 mg/dL Below low normal 02/06/2025 8.7 - 10.5 HHCCT CO2 SerPl-sCnc 23.0 mmol/L 02/06/2025 22 - 33 HH CCT BUN SerPl-mCnc 14.0 mg/dL 02/06/2025 8 - [address] Chloride SerPl-sCnc 102.0 mmol/L 02/06/2025 98 - 1 07 HHCCT Sodium SerPl-sCnc 138.0 mmol/L 02/06/2025 136 - 14 5 HHCCT BUN/Creat SerPl 16.0 Ratio 02/06/2025 10 - 25 HH CCT Magnesium SerPl-mCnc 2.3 mg/dL 02/06/2025 1.6 - 2. 7 [facility]HC[facility] POC Glucose 208.0 mg/dL Above high normal 02/06/2025 65 - 99 [facility] POC Glucose 234.0 mg/dL Above high normal 02/06/2025 65 - 99 [facility] POC Glucose 347.0 mg/dL Above high normal 02/05/2025 65 - 99 [facility] POC Glucose 390.0 mg/dL Above high normal 02/05/2025 65 - HHCCT POC Glucose 267.0 mg/dL Above high normal 02/05/2025 65 - 99 [facility] POC Glucose 193.0 mg/dL Above high normal 02/05/2025 65 - 99 [facility] POC Glucose 206.0 mg/dL Above high normal 02/05/2025 65 - 99 [facility] POC Glucose 211.0 mg/dL Above high normal 02/04/2025 65 - 99 [facility] POC Glucose 309.0 mg/dL Above high normal 02/04/2025 65 - 99 [facility] POC Glucose 344.0 mg/dL Above high normal 02/04/2025 65 - 99 HHCCT Est. average glucose Bld gHb Est-mCnc 324.0 mg/dL 02/04/2025 HHCCT Hgb A1c MFr Bld 12.9 % Above high normal 02/04/2025 - 5.7 HHCCT Albumin/Glob SerPl 1.3 Ratio 02/04/2025 1 - 1.8 HHCCT Potassium SerPl-sCnc 3.4 mmol/L 02/04/2025 3.4 - 5 .3 HHCCT Glucose SerPl-mCnc 203.0 mg/dL Above high normal 02/04/2025 65 - 99 HHCCT Calcium SerPl-mCnc 7.8 mg/dL Below low normal 02/04/2025 8.7 - 10.5 HHCCT Creat SerPl-mCnc 0.7 mg/dL 02/04/2025 0.4 - 1.1 HH CCT AST SerPl-cCnc 24.0 U/L 02/04/2025 10 - 50 HHCC T BUN SerPl-mCnc 8.0 mg/dL 02/04/2025 8 - 21 [facility] T Albumin SerPl-mCnc 2.9 g/dL Below low normal 02/04/2025 3.4 - 4.8 H[facility]CT Globulin Ser Calc-mCnc 2.3 g/dL 02/04/2025 1.5 - 3.9 HHCCT GFR/BSA.pred SerPlBld [id number]-[id number] 86.0 02/04/2025 59 - HHCCT Bilirub SerPl-mCnc 0.5 mg/dL 02/04/2025 0.2 - 1 HHCCT Prot SerPl-mCnc 5.2 g/dL Below low normal 02/04/2025 6.3 - 8.3 HHCCT ALP SerPl-cCnc 73.0 U/L 02/04/2025 32 - 122 HH[facility] T CO2 SerPl-sCnc 21.0 mmol/L Below low normal 02/04/2025 22 - 33 HHCCT Sodium SerPl-sCnc 143.0 mmol/L 02/04/2025 136 - 14 5 HHCCT Chloride SerPl-sCnc 112.0 mmol/L Above high normal 5 98 - 107 HHCCT ALT SerPl-cCnc 19.0 U/L 02/04/2025 10 - 50 [facility] T BUN/Creat SerPl 11.0 Ratio 02/04/2025 10 - 25 HH CCT Anion Gap Bld-sCnc 10.0 02/04/2025 4 - 16 HHCCT Lactate SerPl-sCnc 2.3 mmol/L Critically high 02/04/2025 0.5 - 1.9 HHCCT Phosphate SerPl-mCnc 3.4 mg/dL 02/04/2025 2.7 - 4. 5 HHCCT Magnesium SerPl-mCnc 2.2 mg/dL 02/04/2025 1.6 - 2. 7 HHCCT POC Glucose 250.0 mg/dL Above high normal 02/04/2025 65 - 99 HHCCT POC Glucose 319.0 mg/dL Above high normal 02/04/2025 65 - 99 HHCCT POC Glucose 311.0 mg/dL Above high normal 02/04/2025 65 - 99 HHCCT CO2 SerPl-sCnc 23.0 mmol/L 2025 22 - 33 HH CCT Calcium SerPl-mCnc 8.0 mg/dL Below low normal 2025 8.7 - 10.5 HHCCT Chloride SerPl-sCnc 107.0 mmol/L 2025 98 - 1 07 HHCCT GFR/BSA.pred SerPlBld COP-WBB-YfVFhg 74.0 2025 59 - HHCCT Sodium SerPl-sCnc 142.0 mmol/L 2025 136 - 14 5 HHCCT BUN SerPl-mCnc 11.0 mg/dL 2025 8 - [address] BUN/Creat SerPl 14.0 Ratio 2025 10 - 25 HH CCT Potassium SerPl-sCnc 3.5 mmol/L 2025 3.4 - 5 .3 HHCCT Anion Gap Bld-sCnc 12.0 2025 4 - 16 HHCCT Creat SerPl-mCnc 0.8 mg/dL 2025 0.4 - 1.1 HH CCT Glucose SerPl-mCnc 280.0 mg/dL Above high normal 2025 65 - 99 HHCCT POC Glucose 238.0 mg/dL Above high normal 2025 65 - 99 [facility]CT POC Glucose 171.0 mg/dL Above high normal 2025 65 - 99 HHCCT POC Glucose 133.0 mg/dL Above high normal 2025 65 - 99 HHCCT Glucose SerPl-mCnc 142.0 mg/dL Above high normal 2025 65 - 99 HHCCT Anion Gap Bld-sCnc 12.0 2025 4 - 16 HHCCT Creat SerPl-mCnc 0.8 mg/dL 2025 0.4 - 1.1 HH CCT Calcium SerPl-mCnc 8.3 mg/dL Below low normal 2025 8.7 - 10.5 HHCCT CO2 SerPl-sCnc 22.0 mmol/L 2025 22 - 33 HH CCT BUN SerPl-mCnc 17.0 mg/dL 2025 8 - [address] Chloride SerPl-sCnc 119.0 mmol/L Above high normal 5 98 - 107 HHCCT GFR/BSA.pred SerPlBld [id number]-ZLX-BdIUqk 74.0 2025 59 - HHCCT Sodium SerPl-sCnc 153.0 mmol/L Above high normal 2025 136 - 145 HHCCT BUN/Creat SerPl 21.0 Ratio 2025 10 - 25 HH CCT Potassium SerPl-sCnc 3.8 mmol/L 2025 3.4 - 5 .3 HHCCT POC Glucose 145.0 mg/dL Above high normal 2025 65 - 99 HHCCT POC Glucose 157.0 mg/dL Above high normal 2025 65 - 99 HHCCT Phosphate SerPl-mCnc 2.6 mg/dL Below low normal 2025 2 .7 - 4.5 HHCCT Magnesium SerPl-mCnc 2.3 mg/dL 2025 1.6 - 2. 7 HHCCT Chloride SerPl-sCnc 121.0 mmol/L Above high normal 5 98 - 107 HHCCT Glucose SerPl-mCnc 183.0 mg/dL Above high normal 2025 65 - 99 HHCCT BUN SerPl-mCnc 19.0 mg/dL 2025 8 - [address] CO2 SerPl-sCnc 23.0 mmol/L 2025 22 - 33 HH CCT BUN/Creat SerPl 21.0 Ratio 2025 10 - 25 HH CCT Sodium SerPl-sCnc 155.0 mmol/L Above high normal 2025 136 - 145 HHCCT Calcium SerPl-mCnc 8.3 mg/dL Below low normal 2025 8.7 - 10.5 HHCCT Creat SerPl-mCnc 0.9 mg/dL 2025 0.4 - 1.1 HH CCT GFR/BSA.pred SerPlBld JSP-FRS-RoOKqx 64.0 2025 59 - HHCCT Potassium SerPl-sCnc 3.7 mmol/L 2025 3.4 - 5 .3 HHCCT Anion Gap Bld-sCnc 11.0 2025 4 - 16 HHCCT POC Glucose 162.0 mg/dL Above high normal 2025 65 - 99 HHCCT POC Glucose 190.0 mg/dL Above high normal 2025 65 - 99 HHCCT Glucose SerPl-mCnc 206.0 mg/dL Above high normal 2025 65 - 99 HHCCT Chloride SerPl-sCnc 119.0 mmol/L Above high normal 98 - 107 HHCCT Anion Gap Bld-sCnc 8.0 2025 4 - 16 HHCCT Sodium SerPl-sCnc 150.0 mmol/L Above high normal 2025 136 - 145 HHCCT GFR/BSA.pred SerPlBld TUF-ZPD-XoBCmw 74.0 2025 59 - HHCCT Potassium SerPl-sCnc 3.5 mmol/L 2025 3.4 - 5 .3 HHCCT Calcium SerPl-mCnc 8.1 mg/dL Below low normal 2025 8.7 - 10.5 HHCCT Creat SerPl-mCnc 0.8 mg/dL 2025 0.4 - 1.1 HH CCT BUN SerPl-mCnc 18.0 mg/dL 2025 8 - [address] BUN/Creat SerPl 23.0 Ratio 2025 10 - 25 HH CCT CO2 SerPl-sCnc 23.0 mmol/L 2025 22 - 33 HH CCT Lymphocytes num Bld Auto 2.82 Thou/uL 2025 1.5 - 4.5 HHCCT RBC num Bld Auto 4.69 Mil/uL 2025 4 - 5.4 HHCCT Basophils num Bld Auto 0.05 Thou/uL 2025 0 - 0.2 HHCCT Monocytes num Bld Auto 0.61 Thou/uL 2025 0.2 - 1.5 HHCCT PMV Bld Auto 9.8 fL 2025 7.5 - 12.5 HHCCT Basophils/leuk NFr Bld Auto 0.5 % 2025 HHCCT RDW RBC Auto-Rto 12.2 % 2025 11.5 - 14.5 HHCCT Imm Granulocytes/leuk NFr Bld Auto 0.4 % 2025 HHCCT WBC num Bld Auto 10.2 Thou/uL 2025 4 - 11 HHCCT Lymphocytes/leuk NFr Bld Auto 27.5 % 2025 HHCCT Eosinophil num Bld Auto 0.26 Thou/uL 2025 0 - 0.7 HHCCT Platelet num Bld Auto 187.0 Thou/uL 2025 150 - 450 HHCCT MCH RBC Qn Auto 29.0 pg 2025 27 - [address] Neutrophils/leuk NFr Bld Auto 63.1 % 2025 [facility] MCHC RBC Auto-mCnc 32.0 g/dL 2025 30 - 36 HHCCT Neutrophils num Bld Auto 6.46 Thou/uL 2025 2 - 7.5 HHCCT Hgb Bld-mCnc 13.6 g/dL 2025 11.7 - 15.7 HHCC T MCV RBC Auto 91.0 fL 2025 80 - 100 HHCCT Imm Granulocytes num Bld Auto 0.04 Thou/uL 2025 0 - 0.1 CCT Eosinophil/leuk NFr Bld Auto 2.5 % 2025 HHCCT Hct VFr Bld Auto 42.5 % 2025 35 - 47 HH CCT Monocytes/leuk NFr Bld Auto 6.0 % 2025 [facility] POC Glucose 192.0 mg/dL Above high normal 2025 65 - 99 HHCCT POC Glucose 196.0 mg/dL Above high normal 2025 65 - 99 HHCCT BUN SerPl-mCnc 21.0 mg/dL 2025 8 - [address] BUN/Creat SerPl 23.0 Ratio 2025 10 - 25 HH CCT Sodium SerPl-sCnc 155.0 mmol/L Above high normal 2025 136 - 145 HHCCT Potassium SerPl-sCnc 3.7 mmol/L 2025 3.4 - 5 .3 HHCCT Anion Gap Bld-sCnc 11.0 2025 4 - 16 HHCCT GFR/BSA.pred SerPlBld IGM-YIL-CdHOuj 64.0 2025 59 - HHCCT Chloride SerPl-sCnc 119.0 mmol/L Above high normal 98 - 107 HHCCT Glucose SerPl-mCnc 218.0 mg/dL Above high normal 2025 65 - 99 HHCCT Calcium SerPl-mCnc 8.6 mg/dL Below low normal 2025 8.7 - 10.5 HHCCT CO2 SerPl-sCnc 25.0 mmol/L 2025 22 - 33 HH CCT Creat SerPl-mCnc 0.9 mg/dL 2025 0.4 - 1.1 HH CCT Lactate SerPl-sCnc 3.1 mmol/L Critically high 2025 0.5 - 1.9 HHCCT POC Glucose 197.0 mg/dL Above high normal 2025 65 - 99 HHCCT POC Glucose 210.0 mg/dL Above high normal 2025 65 - 99 HHCCT POC Glucose 258.0 mg/dL Above high normal 2025 65 - 99 HHCCT Anion Gap Bld-sCnc 12.0 2025 4 - 16 HHCCT GFR/BSA.pred SerPlBld MEP-QTS-WnVHgx 56.0 Below low normal 2025 59 - HHCCT BUN SerPl-mCnc 24.0 mg/dL Above high normal 2025 8 - 2 1 HHCCT Calcium SerPl-mCnc 9.2 mg/dL 2025 8.7 - 10.5 HHCCT BUN/Creat SerPl 24.0 Ratio 2025 10 - 25 HH CCT CO2 SerPl-sCnc 27.0 mmol/L 2025 22 - 33 HH CCT Glucose SerPl-mCnc 275.0 mg/dL Above high normal 2025 65 - 99 HHCCT Sodium SerPl-sCnc 155.0 mmol/L Above high normal 2025 136 - 145 HHCCT Potassium SerPl-sCnc 4.1 mmol/L 2025 3.4 - 5 .3 CCT Chloride SerPl-sCnc 116.0 mmol/L Above high normal 98 - 107 CCT Creat SerPl-mCnc 1.0 mg/dL 2025 0.4 - 1.1 HH CCT POC Glucose 282.0 mg/dL Above high normal 2025 65 - 99 [facility] ISTAT Venous HCO3 26.4 mmol/L 2025 23 - 28 [facility] ISTAT Sample Type VENOUS 2025 H HCCT Ramesh Test NA 2025 [facility] ISTAT Venous TCO2 27.0 mmol/L 2025 23 - 29 [facility] ISTAT Base Excess 3.0 mmol/L 2025 [facility] Venous O2 Saturation, POC 69.0 % 2025 60 - 75 [facility] ISTAT VENOUS PCO2 35.3 mmHg 2025 35 - 50 H HCCT ISTAT Venous PO2 33.0 mmHg 2025 0 - 60 HH CCT Blood Gas Draw Site VENOUS 2025 [facility] ISTAT Venous pH 7.48 Above high normal 2025 7.33 - 7.43 [facility] MDRN Aware Yes 2025 CCT Hgb A1c MFr Bld 12.7 % Above high normal 2025 - 5.7 [facility] Est. average glucose Bld gHb Est-mCnc 318.0 mg/dL 2025 [facility] TSH SerPl DL<=0.005 mIU/L-aCnc 3.24 mIU/L 2025 0.27 - 4.2 CCT Lactate SerPl-sCnc 2.8 mmol/L Critically high 2025 0.5 - 1.9 HHCCT Hct VFr Bld Auto 48.4 % Above high normal 2025 35 - 47 HHCCT MCV RBC Auto 90.0 fL 2025 80 - 100 HHCCT RBC num Bld Auto 5.37 Mil/uL 2025 4 - 5.4 HHCCT PMV Bld Auto 9.7 fL 2025 7.5 - 12.5 HHCCT WBC num Bld Auto 11.2 Thou/uL Above high normal 2025 4 - 11 HHCCT MCHC RBC Auto-mCnc 32.4 g/dL 2025 30 - 36 HHCCT MCH RBC Qn Auto 29.2 pg 2025 27 - [address] [facility] [address] RDW RBC Auto-Rto 12.1 % 2025 11.5 - 14.5 HHCCT Hgb Bld-mCnc 15.7 g/dL 2025 11.7 - 15.7 [facility] T Platelet num Bld Auto 205.0 Thou/uL 2025 150 - 450 HHCCT POC Glucose 250.0 mg/dL Above high normal 2025 65 - 99 CCT Encounters Encounter Type Encounter Reason Primary Diagnosis Location Date Inpatient Type 2 diabetes mellitus with ketoacidosis without coma Type 2 diabetes mellitus with ketoacidosis without coma [facility] 02/02/2025 Care Team Organization Name Specialty Phone Email Start Date End Da te [facility] 2025 03/05/2025 [facility] 02/02/2025
--- OUTSIDE RECORDS SUMMARY | 2025-08-16 09:48 | XMS_ITS ---
Author Organization [facility] Care Team Providers Care Motor Vehicle Inspector Name Role Phone Kendal Hopson Unavailable Unavailable Magdalena King Unavailable Unavailable Jigar Galvan Unavailable Unavailable Allergies and adverse reactions No Known Allergies Care Team Name Role Address Phone Organization Dates Jigar Mandy PCP [address] [place] [address], [facility] (Office): : [facility] 02/23/2024 - 04/01/2024 Kendal Hopson [address] [place] [address], [id number], [facility] (Office): : [facility] 02/23/2024 - 04/01/2024 Magdalena King [address] [place] [address] [address], [address], [facility] (Office): : [facility] 02/23/2024 - 04/01/2024 Immunizations Immunization Status Vaccine Details Vaccine Code CodeSystem Charli e Notes (COVID-19) Pfizer Original Primary Dose Vaccine 2 of 2 completed SARS-COV-2 (COVID-19) vaccine, mRNA, spike protein, LNP, preservative free, 30 mcg/0.3mL dose 208 CVX created date: 03/01/2024 administered date: 11/24/2020 (COVID-19) Pfizer Original Primary Dose Vaccine 1 of 2 completed SARS-COV-2 (COVID-19) vaccine, mRNA, spike protein, LNP, preservative free, 30 mcg/0.3mL dose 208 CVX created date: 03/01/2024 administered date: 11/02/2020 (COVID-19) [employer] Original Booster Vaccine completed SARS-COV-2 (COVID-19) vaccine, mRNA, spike protein, LNP, preservative free, 30 mcg/0.3mL dose 208 CVX created date: 03/01/2024 administered date: 08/25/2021 Mental Status Section Date Assessment Total Score Description 04/01/2024 BIMS 03 severe cognitiv e impairment CAM 0 No delirium ind icated 02/29/2024 BIMS 03 severe cognitiv e impairment CAM 0 No delirium ind icated Insurance Providers Problems Problem # Description Date of onset Resolved Date Code CodeSystem Concern Status 1 ALZHEIMER'S DISEASE, UNSPECIFIED 02/23/[address] active 2 DISPLACED FRACTURE (AVULSION) OF LATERAL EPICONDYLE OF LEFT HUMERUS, SUBSEQUENT ENCOUNTER FOR FRACTURE WITH ROUTINE HEALING 02/23/[address] active 3 DISPLACED FRACTURE OF HEAD OF LEFT RADIUS, SUBSEQUENT ENCOUNTER FOR CLOSED FRACTURE WITH ROUTINE HEALING 02/23/[address] active 4 ENCOUNTER FOR OTHER ORTHOPEDIC AFTERCARE 02/23/[address] active 5 ESSENTIAL (PRIMARY) HYPERTENSION 02/23/[address] active 6 HISTORY OF FALLING 02/23/[address] active 7 HYPERLIPIDEMIA, UNSPECIFIED 02/23/[address] active 8 TYPE 2 DIABETES MELLITUS WITHOUT COMPLICATIONS 02/23/[address] active Reason for Referral No Reasons for Referral Entered Social History Social History Observation Description Start Date End Date Code Code System Current Smoking Status Tobacco smoking consumption unknown 225025720 SNOMED CT Sex Assigned At Female 1945 63723-5 [facility] Gender Identity Sexual Orientation Vital Signs Code Code System Vitals Name Values and Units Timing Information 00334-3 [facility] Pain Level Value=0.0 04/01/2024 9279-1 [facility] Respiratory Rate Value=18.0 Units=/m in 03/31/2024 8462-4 [facility] Blood Pressure-Diastolic Value=79 Un its=mmHg 03/31/2024 8480-6 [facility] Blood Pressure-Systolic Nvviz=772 Un its=mmHg 03/31/2024 8310-5 [facility] Body Temperature Value=97.5 Units= F 03/31/2024 8867-4 [facility] Heart rate Value=78.0 Units=/min 79021-1 [facility] O2 % BldC Oximetry Value=97.0 Units= % 03/31/2024 74234-1 [facility] Weight Qfeim=249.0 Units=Lbs 08/2024 8302-2 [facility] Height Value=62.0 Units=Inches 03/03/2024
--- OUTSIDE RECORDS SUMMARY | 2025-08-16 09:48 | XMS_ITS | Patient Health Record ---
Author Organization [facility] Address [address] [place] [address] Care Team Providers Care Supervisor Transcribing Operators Name Role Phone Daniele Morgan MD, May Primary Care Provider U Aaron Abrams Unavailable [phone] Allergies Allergen (clinical drug ingredient) Drug/Non Drug Allergy documented on EMR Reaction Allergy Type Onset Date Status Information temporarily unavailable Lisinopril cough Drug Allergy Active Results Component Value Reference Range Notes HEMOGLOBIN A1C (GLYCOHEMOGLO BIN) Reviewed date:03/03/2025 04:41:55 PM Interpretation: Performing Lab: Notes/Report: HEMOGLOBIN A1C % (HH) 8.9 Reason For Referral No Information Medications Medication SIG (Take, Route, Frequency, Duration) Notes Start Date End Date Status Atorvastatin Calcium 40 MG 1 tablet Orally Once a day; Duration: 90 days Active Donepezil HCl 10 MG Oral; Duration: 90 Active Ciclopirox Olamine 0.77 % 1 application Externally Twice a day; Duration: 30 days Active Extra Depth Orthopedic Shoes, (1) Pair With (3) Pair Custom Heat Molded Multidensity Innersoles Dx: NIDDM/PVD(E11.51), Hammertoe Foot Deformity(M20.41,M20. 42), Preulcerative Skin Lesion(s)(L85.1) Wear Daily; Duration: 365 days Active Vitamin D3 25 MCG (1000 UT) 1 capsule Orally Once a day Active Aspirin 81 Not-Takin g Losartan Potassium 25 MG 1 tablet Orally Once a day Active metFORMIN HCl 500 MG 1 tablet with a geeta l Orally Once a day; Duration: 30 day(s) twice a day Not-Taking Tradjenta 5 MG 1 tablet Orally Once a day Active Valsartan 80 MG Oral; Duration: 90 Not-Taking Lantus SoloStar 100 UNIT/ML as directed Subcutaneous Active Memantine HCl ER 21 MG 1 capsule Orally Once a day; Duration: 30 day(s) Not-Taking glipiZIDE 5 MG 1 tablet 30 minutes before breakfast Orally twice a day Active Centrum Not-Taking Januvia Active Claritin Not-Taking Ammonium Lactate 12 % 1 application to affected area Externally to feet Twice a day; Duration: 30 days Active Memantine HCl 10 MG Oral; Duration: 90 Not-Taking Immunizations Vaccine Route Administration Date Status Comme nts Influenza Unknown 06/20/2022 Administered Influenza Unknown 06/20/2024 Administered COVID-19 Pfizer BioNTech Vaccine Unknown 08/25/2021 Administered 1st 11/02/2020 2nd 11/24/2020 Social History Tobacco Use: Social History Observation Description Date Details (start date - stop date) Never Smoker NA - NA Tobacco use other than smoking: Question Answer Notes Are you an other tobacco user? No Tobacco Control (Standard) Question Answer Notes Tobacco use: Nonsmoker Additional Findings: Tobacco non-user Current no nsmoker AUDIT-C (Standard) Question Answer Notes Did you have a drink containing alcohol in the p ast year? No Points 0 Interpretation Negative Problems Problem Type SNOMED Code ICD Code Onset Dates Problem Status W/U Status Risk Notes Problem Information temporarily unavailable Other hammer toe(s) (acquired), right foot (M20.41) Active confirmed Response to treatment,I mprovement Problem Information temporarily unavailable Type 2 diabetes mellitus with diabetic peripheral angiopathy without gangrene (E11.51) Active confirmed Problem Information temporarily unavailable Other hammer toe(s) (acquired), left foot (M20.42) Active confirmed Response to treatment,I mprovement Vital Signs Blood pressure diastolic 65 mm Hg 06/06/2025 Height 5 ft 3 in in 06/06/2025 Blood pressure systolic 128 mm Hg 06/06/2025 Weight 178 lbs 06/06/2025 BMI 31.53 kg/m2 06/06/2025 Procedures Procedure Date Ordered Date Performed Result Body Sit e 89541-LRVXHGU NAIL, 6 OR MORE 12/03/2024 N/A 29848-KCYV SKIN LESIONS, OVER 4 12/03/2024 N/A 63177-IPHZACR NAIL, 6 OR MORE 02/28/2025 N/A 77743-KNJS SKIN LESIONS, OVER 4 02/28/2025 N/A 28752-TIZNYGQ NAIL, 6 OR MORE 06/06/2025 N/A 93840-HDLY SKIN LESIONS, OVER 4 06/06/2025 N/A Encounters Encounter Location Date Provider Diagnosis [address] [address] 12/03/2024 Aaron Wilkes Type 2 diabetes mellitus with diabetic peripheral angiopathy without gangrene E11.51 ; Tinea unguium B35.1 ; Pain in right toe(s) M79.674 ; Pain in left toe(s) M79.675 ; Other hammer toe(s) (acquired), left foot M20.42 and Other hammer toe(s) (acquired), right foot M20.[address] [address] 02/28/2025 Aaron Wilkes Type 2 diabetes mellitus with diabetic peripheral angiopathy without gangrene E11.51 ; Other hammer toe(s) (acquired), right foot M20.41 ; Tinea unguium B35.1 ; Pain in right toe(s) M79.674 ; Pain in left toe(s) M79.675 and Other hammer toe(s) (acquired), left foot M20.[address] [address] 06/06/2025 Aaron Wilkes Type 2 diabetes mellitus with diabetic peripheral angiopathy without gangrene E11.51 ; Tinea unguium B35.1 ; Pain in right toe(s) M79.674 and Pain in left toe(s) M79.[address] [address] 08/26/2024 Aaron Wilkes [address] [address] 02/28/2025 Aaron Wilkes Assessments Encounter Date Diagnosis (ICD Code) Assessment Notes Treatment Notes Treatment Clinical Notes Section Notes 12/03/2024 Type 2 diabetes mellitus with diabetic peripheral angiopathy without gangrene (ICD-10 - E11.51) 02/28/2025 Other hammer toe(s) (acquired), right foot (ICD-10 - M20.41) Patient Educated with: DIABETIC FOOT CARE INSTRUCTIONS.p df (DIABETIC FOOT CARE INSTRUCTIONS.p df) 02/28/2025 Type 2 diabetes mellitus with diabetic peripheral angiopathy without gangrene (ICD-10 - E11.51) 06/06/2025 Type 2 diabetes mellitus with diabetic peripheral angiopathy without gangrene (ICD-10 - E11.51) 06/06/2025 Tinea unguium (ICD-10 - B35.1) 02/28/2025 Tinea unguium (ICD-10 - B35.1) 12/03/2024 Tinea unguium (ICD-10 - B35.1) 12/03/2024 Pain in right toe(s) (ICD-10 - M79.674) 02/28/2025 Pain in right toe(s) (ICD-10 - M79.674) 06/06/2025 Pain in right toe(s) (ICD-10 - M79.674) 02/28/2025 Pain in left toe(s) (ICD-10 - M79.675) 06/06/2025 Pain in left toe(s) (ICD-10 - M79.675) 12/03/2024 Pain in left toe(s) (ICD-10 - M79.675) 12/03/2024 Other hammer toe(s) (acquired), left foot (ICD-10 - M20.42) 02/28/2025 Other hammer toe(s) (acquired), left foot (ICD-10 - M20.42) 12/03/2024 Other hammer toe(s) (acquired), right foot (ICD-10 - M20.41) Patient Educated with: DIABETIC FOOT CARE INSTRUCTIONS.p df (DIABETIC FOOT CARE INSTRUCTIONS.p df) Plan Of Treatment Pending Test Test Name Order Date X ray : Foot, right 3V 09/30/2022 33250-QPZSUKR NAIL, 6 OR MORE 11/04/2022 21912-LPWRZJP NAIL, 6 OR MORE 07/15/2022 31367-PLWEVON NAIL, 6 OR MORE 2023 55519-HYWSMAH NAIL, 6 OR MORE 06/02/2023 38925-LYFPTOI NAIL, 6 OR MORE 09/22/2023 40072-GZTTBOC NAIL, 6 OR MORE 12/22/2023 65158-XHHIBLS NAIL, 6 OR MORE 05/28/2024 26248-VTOOVKU NAIL, 6 OR MORE 12/03/2024 75664-WPFWKRV NAIL, 6 OR MORE 02/21/2020 94443-TCCVHRU NAIL, 6 OR MORE 05/15/2020 56051-KEXVCAN NAIL, 6 OR MORE 10/09/2020 63277-LBNIYBB NAIL, 6 OR MORE 01/15/2021 81530-NWBMFME NAIL, 6 OR MORE 04/23/2021 36414-WUCXNRC NAIL, 6 OR MORE 07/23/2021 91099-REBCYUM NAIL, 6 OR MORE 11/26/2021 04408-EOGIHWL NAIL, 6 OR MORE 04/15/2022 65086-NBZXQHH NAIL, 6 OR MORE 02/28/2025 19609-EWWQWNF NAIL, 6 OR MORE 06/06/2025 17662-Pfkczaec Plate 02/21/2020 40537-HRCK SKIN LESIONS, OVER 4 06/06/20 25 14922-FKMY SKIN LESIONS, OVER 4 02/29/20 25 96944-SQMX SKIN LESIONS, OVER 4 12/04/19 25 01799-CGVN SKIN LESIONS, OVER 4 05/28/20 24 70538-MMKM SKIN LESIONS, OVER 4 12/22/19 24 45034-JKSM SKIN LESIONS, OVER 4 09/22/19 24 59732-DRGY SKIN LESIONS, OVER 4 06/02/20 23 28816-LMVO SKIN LESIONS, OVER 4 02/04/20 23 96338-JYRK SKIN LESIONS, OVER 4 11/04/19 23 77035-FRGZ SKIN LESIONS, 2 TO 4 07/15/20 22 65540-IWEY SKIN LESIONS, 2 TO 4 04/15/20 22 78617-ATFO SKIN LESIONS, 2 TO 4 11/27/19 90714-HZML SKIN LESIONS, 2 TO 4 07/23/20 21 01498-GTFF SKIN LESIONS, 2 TO 4 04/23/20 13095-OLTM SKIN LESIONS, 2 TO 4 01/16/20 21 63932-TBTE SKIN LESIONS, 2 TO 4 10/09/19 80782-VSGQ SKIN LESIONS, 2 TO 4 05/15/20 11047-CWQJ SKIN LESIONS, 2 TO 4 02/21/20 Next Appt Details Provider Name:Aaron Wilkes , 10/03/2025 09:00:00 AM, [address] [place], [address], Insurance Providers Payer Name Payer Address Payer Phone Subscriber Number Group Number Insured Name Patient Relationship to Insured Coverage Start Date Coverage End Date [employer] Medicare [id number] [address] [address] [place] [phone] [id number] Jackie Mistry Self - patient is the insured Medical (General) History Medical History History ICD Code Alzheimers disease CAD (Cholesterol) Dementia High blood pressure Chicken pox Seasonal allergies type II diabetes Surgical History Surgery Date(Month/Year) cyst removal 06/08 Hospitalization History Reason Date(Month/Year) Hyperglycemia 01/2025 [facility]- Fractured ankle 08/07
--- OUTSIDE RECORDS SUMMARY | 2025-08-16 09:48 | XMS_ITS | Clinical Summary ---
Author Organization [facility] Address [address] [place] [id number] Care Team Providers Care Jewel Flat Surfacer Name Role Phone System, Provider Not In Primary Care Provider Un available Allergies No known active allergies Medications acetaminophen (TYLENOL) 325 MG tabletIndication s:Diabetic ketoacidosis without coma associated with type 2 diabetes mellitus (HCC),Type 2 diabetes mellitus with hyperglycemia, without long-term current use of insulin ([facility]) Take 2 tablets (650 mg total) by mouth 4 times daily (every 6 hours) as needed for mild pain, moderate pain, headaches or fever. 5 Active insulin glargine (LANtus/SEMGLEE SOLOSTAR) 100 units/mL prefilled pen injectionIndicat ions:Diabetic ketoacidosis without coma associated with type 2 diabetes mellitus (HCC),Type 2 diabetes mellitus with hyperglycemia, without long-term current use of insulin ([facility]) Inject 40 Units under the skin daily. . Do not start before February 08, 2025. 15 mL 5 Active losartan (COZAAR) 25 MG tabletIndication s:Diabetic ketoacidosis without coma associated with type 2 diabetes mellitus (HCC),Type 2 diabetes mellitus with hyperglycemia, without long-term current use of insulin ([facility]) Take 1 tablet (25 mg total) by mouth daily. . Do not start before February 08, 2025. 90 tablet 3 5 02/04/20 26 Active Blood Glucose Monitoring Suppl ([employer] Blood Glucose System) w/Device KitIndications:D iabetic ketoacidosis without coma associated with type 2 diabetes mellitus (HCC),Type 2 diabetes mellitus with hyperglycemia, without long-term current use of insulin ([facility]) Please provide most affordable glucometer and appropriate test strips. 1 kit 5 Active glipiZIDE (GLUCOTROL) 5 MG tabletIndication s:Diabetic ketoacidosis without coma associated with type 2 diabetes mellitus (HCC),Type 2 diabetes mellitus with hyperglycemia, without long-term current use of insulin ([facility]) Take 1 tablet (5 mg total) by mouth 2 (two) times a day before meals. . 180 tablet 3 5 02/03/20 26 Active Insulin Pen Needle 32G X 5 MM MiscIndications: Diabetic ketoacidosis without coma associated with type 2 diabetes mellitus (HCC),Type 2 diabetes mellitus with hyperglycemia, without long-term current use of insulin ([facility]) Insulin glargine pen needles, inject daily. 50 pen needle 5 Active Lancets Thin Misc LancetIndication s:Diabetic ketoacidosis without coma associated with type 2 diabetes mellitus (HCC),Type 2 diabetes mellitus with hyperglycemia, without long-term current use of insulin ([facility]) Monitor sugars 3 times per day and as needed.. 200 lancet(s) 5 Active linagliptin (TRADJENTA) 5 MG TabIndications:D iabetic ketoacidosis without coma associated with type 2 diabetes mellitus (HCC),Type 2 diabetes mellitus with hyperglycemia, without long-term current use of insulin ([facility]) Take 1 tablet (5 mg total) by mouth daily. . Do not start before February 08, 2025. 90 tablet 3 5 02/04/20 26 Active OneTouch Verio stripIndications :Diabetic ketoacidosis without coma associated with type 2 diabetes mellitus (HCC),Type 2 diabetes mellitus with hyperglycemia, without long-term current use of insulin ([facility]) Test strips for glucometer supplied. Check 3 times per day and as needed.. 200 test strip 5 Active Alcohol Swabs 70 % PadsIndications: Diabetic ketoacidosis without coma associated with type 2 diabetes mellitus (HCC),Type 2 diabetes mellitus with hyperglycemia, without long-term current use of insulin ([facility]) Use as directed. 100 Pad 5 Active OneTouch Verio stripIndications :Diabetic ketoacidosis without coma associated with type 2 diabetes mellitus (HCC),Type 2 diabetes mellitus with hyperglycemia, without long-term current use of insulin (HCC) Test blood glucose 3 times Daily or as instructed. 100 test strip 5 Active [employer] Lancets 30G Misc lancetIndication s:Diabetic ketoacidosis without coma associated with type 2 diabetes mellitus (HCC),Type 2 diabetes mellitus with hyperglycemia, without long-term current use of insulin (HCC) Test blood glucose 3 times Daily or as instructed. 100 Lancet 5 Active Blood Glucose Monitoring Suppl ([employer] Verio Flex System) w/Device KitIndications:D iabetic ketoacidosis without coma associated with type 2 diabetes mellitus (HCC),Type 2 diabetes mellitus with hyperglycemia, without long-term current use of insulin (HCC) 1 Units by Does not apply route 1 time. Use as directed. 1 kit 5 Active atorvastatin (LIPITOR) 40 MG tabletIndication s:Primary hypertension Take 1 tablet (40 mg total) by mouth daily. 90 tablet 5 Active donepezil (ARICEPT) 10 MG tabletIndication s:Primary hypertension Take 1 tablet (10 mg total) by mouth nightly. 30 tablet 5 Active Active Problems Problem Noted Date Diagnosed Date Hypernatremia 2025 Assessment & Plan (02/06/2025 9:42 AM EDT): Resolved. Sodium corrects to 140 on 02/06/2025 Plan: Offer and encourage free water. Assessment & Plan (02/05/2025 8:36 AM EDT): Resolved. Eating 75%. Plan: Offer and encourage free water. BMP. Assessment & Plan (02/04/2025 10:00 AM EDT): Resolved. Plan: Offer and encourage free water. Monitoring. Assessment & Plan (2025 10:03 AM EDT): Persist. Sodium 155. Plan: Begin access to free water. Monitoring. Lactic acidosis 2025 Assessment & Plan (02/06/2025 9:42 AM EDT): Down to 2.3 on 02/04/2025 with stable blood pressure. Expect secondary to type B from diabetes and metformin. Plan: Monitor. Assessment & Plan (02/05/2025 8:36 AM EDT): Down to 2.3 with stable blood pressure. Expect secondary to type B from diabetes and metformin. Plan: Monitor. Assessment & Plan (02/04/2025 10:00 AM EDT): Down to 2.3 with stable blood pressure. Expect secondary to type B from diabetes and metformin. Plan: Monitor. Assessment & Plan (2025 10:03 AM EDT): Persist. Hemodynamically stable. Possibly secondary to type B from diabetes. Plan: Monitor. Dementia with behavioral disturbance 2025 Assessment & Plan (02/06/2025 9:42 AM EDT): Calm and cooperative lately. Initially had behavioral disturbances requiring restraints. From memory care unit requiring assist with daily living but still ambulatory. Exam nonfocal. CT head and CTA head and neck unremarkable at outside hospital. Plan: Home Aricept. Assessment & Plan (02/05/2025 8:36 AM EDT): Calm and cooperative lately. Initially had behavioral disturbances requiring restraints. From memory care unit requiring assist with daily living but still ambulatory. Exam nonfocal. CT head and CTA head and neck unremarkable at outside hospital. Plan: Home Aricept. Assessment & Plan (02/04/2025 10:19 AM EDT): Calm and cooperative lately. Initially had behavioral disturbances requiring restraints. From memory care unit requiring assist with daily living but still ambulatory. Exam nonfocal. CT head and CTA head and neck unremarkable at outside hospital. Plan: Home Aricept. Assessment & Plan (2025 10:03 AM EDT): Per report severe baseline disability. Behavioral disturbances requiring restraints noted. Currently following commands, to me her name, pleasantly demented with smiling and laughing. Exam nonfocal. CT head and CTA head and neck unremarkable at outside hospital. Plan: Check EKG in case behavioral medications required. Home Aricept. Clarify baseline. Primary hypertension 2025 Assessment & Plan (02/06/2025 9:42 AM EDT): Stable. Plan: Losartan resumed at 50%. Hydralazine as needed for now. Assessment & Plan (02/05/2025 8:36 AM EDT): Stable. Plan: Losartan resumed at 50%.. Hydralazine for now. Assessment & Plan (02/04/2025 10:00 AM EDT): Stable. Plan: Home losartan on hold. Hydralazine for now. Assessment & Plan (2025 10:03 AM EDT): Stable. Plan: Home losartan on hold. Hydralazine for now. Debilitated 2025 Assessment & Plan (02/06/2025 9:42 AM EDT): Calm and cooperative lately. Initially had behavioral disturbances requiring restraints. From memory care unit requiring assist with daily living but still ambulatory. Exam nonfocal. CT head and CTA head and neck unremarkable at outside hospital. Plan: Home Aricept. Assessment & Plan (02/05/2025 8:36 AM EDT): Calm and cooperative lately. Initially had behavioral disturbances requiring restraints. From memory care unit requiring assist with daily living but still ambulatory. Exam nonfocal. CT head and CTA head and neck unremarkable at outside hospital. Plan: Home Aricept. Assessment & Plan (02/04/2025 10:19 AM EDT): Calm and cooperative lately. Initially had behavioral disturbances requiring restraints. From memory care unit requiring assist with daily living but still ambulatory. Exam nonfocal. CT head and CTA head and neck unremarkable at outside hospital. Plan: Home Aricept. Assessment & Plan (2025 10:03 AM EDT): Per report severe baseline disability. Behavioral disturbances requiring restraints noted. Currently following commands, to me her name, pleasantly demented with smiling and laughing. Exam nonfocal. CT head and CTA head and neck unremarkable at outside hospital. Plan: Check EKG in case behavioral medications required. Home Aricept. Clarify baseline. Metabolic encephalopathy 2025 Assessment & Plan (02/06/2025 9:42 AM EDT): Calm and cooperative lately. Initially had behavioral disturbances requiring restraints. From memory care unit requiring assist with daily living but still ambulatory. Exam nonfocal. CT head and CTA head and neck unremarkable at outside hospital. Plan: Home Aricept. Assessment & Plan (02/05/2025 8:36 AM EDT): Calm and cooperative lately. Initially had behavioral disturbances requiring restraints. From memory care unit requiring assist with daily living but still ambulatory. Exam nonfocal. CT head and CTA head and neck unremarkable at outside hospital. Plan: Home Aricept. Assessment & Plan (02/04/2025 10:19 AM EDT): Calm and cooperative lately. Initially had behavioral disturbances requiring restraints. From memory care unit requiring assist with daily living but still ambulatory. Exam nonfocal. CT head and CTA head and neck unremarkable at outside hospital. Plan: Home Aricept. Assessment & Plan (2025 10:03 AM EDT): Per report severe baseline disability. Behavioral disturbances requiring restraints noted. Currently following commands, to me her name, pleasantly demented with smiling and laughing. Exam nonfocal. CT head and CTA head and neck unremarkable at outside hospital. Plan: Check EKG in case behavioral medications required. Home Aricept. Clarify baseline. Type 2 diabetes mellitus wit h hyperglycemia, without long-term current use of insulin 2025 Assessment & Plan (02/06/2025 10:11 AM EDT): Glucose 278. A1c 12.7 on 02/02/2025. On metformin prior to arrival. Severe hyperglycemia (922) improved and anion gap resolved with IV insulin protocol. Reviewed with endocrinology will require subcutaneous insulin at discharge. Plan: Increase basal bolus correction to 40 units glargine with 13 units lispro before meals plus correction scale. Await discharge planning. Per discharge planning family and facility working on outside insulin injection and monitoring and likely will start with endocrinology plan with glargine 20 units, glipizide 5 mg twice daily and Tradjenta 5 mg daily with close monitoring. Assessment & Plan (02/05/2025 10:24 AM EDT): Glucose 267. A1c 12.7 on 02/02/2025. On metformin prior to arrival. Severe hyperglycemia (922) improved and anion gap resolved with IV insulin protocol. Plan: Titrated glargine to 20, meal coverage lispro to 7 with correction scale. Case management for facility that can accommodate insulin. Endocrinology consult pending to see whether there is a non injectable regimen to facilitate transfer back to facility Addendum [address] Phillips/endocrinology and at the minimum glargine insulin will be required for management of diabetes. Referred back to case management to pursue placement able to manage diabetes with insulin Assessment & Plan (02/04/2025 10:00 AM EDT): Glucose 203. A1c 12.7 on 02/02/2025. On metformin prior to arrival. Severe hyperglycemia (922) improved and anion gap resolved with IV insulin protocol. Plan: Titrate basal bolus correction insulin regimen. Case management for facility that can accommodate insulin. Assessment & Plan (2025 10:03 AM EDT): Hyperglycemia and anion gap resolved with IV insulin protocol. Hemoglobin A1c on 02/02/2025 pending. Pending pharmacy list reports [facility]. Presented to outside hospital with glucose 922. Plan: Convert to subcutaneous regimen. Diabetic ketoacidosis withou t coma associated with type 2 diabetes mellitus 2025 Assessment & Plan (02/06/2025 10:11 AM EDT): Glucose 278. A1c 12.7 on 02/02/2025. On metformin prior to arrival. Severe hyperglycemia (922) improved and anion gap resolved with IV insulin protocol. Reviewed with endocrinology will require subcutaneous insulin at discharge. Plan: Increase basal bolus correction to 40 units glargine with 13 units lispro before meals plus correction scale. Await discharge planning. Per discharge planning family and facility working on outside insulin injection and monitoring and likely will start with endocrinology plan with glargine 20 units, glipizide 5 mg twice daily and Tradjenta 5 mg daily with close monitoring. Assessment & Plan (02/05/2025 10:24 AM EDT): Glucose 267. A1c 12.7 on 02/02/2025. On metformin prior to arrival. Severe hyperglycemia (922) improved and anion gap resolved with IV insulin protocol. Plan: Titrated glargine to 20, meal coverage lispro to 7 with correction scale. Case management for facility that can accommodate insulin. Endocrinology consult pending to see whether there is a non injectable regimen to facilitate transfer back to facility Addendum [address] Phillips/endocrinology and at the minimum glargine insulin will be required for management of diabetes. Referred back to case management to pursue placement able to manage diabetes with insulin Assessment & Plan (02/04/2025 10:00 AM EDT): Glucose 203. A1c 12.7 on 02/02/2025. On metformin prior to arrival. Severe hyperglycemia (922) improved and anion gap resolved with IV insulin protocol. Plan: Titrate basal bolus correction insulin regimen. Case management for facility that can accommodate insulin. Assessment & Plan (2025 10:03 AM EDT): Hyperglycemia and anion gap resolved with IV insulin protocol. Hemoglobin A1c on 02/02/2025 pending. Pending pharmacy list reports Janumet. Presented to outside hospital with glucose 922. Plan: Convert to subcutaneous regimen. Hyperosmolar hyperglycemic state (HHS) Assessment & Plan (02/06/2025 10:11 AM EDT): Glucose 278. A1c 12.7 on 02/02/2025. On metformin prior to arrival. Severe hyperglycemia (922) improved and anion gap resolved with IV insulin protocol. Reviewed with endocrinology will require subcutaneous insulin at discharge. Plan: Increase basal bolus correction to 40 units glargine with 13 units lispro before meals plus correction scale. Await discharge planning. Per discharge planning family and facility working on outside insulin injection and monitoring and likely will start with endocrinology plan with glargine 20 units, glipizide 5 mg twice daily and Tradjenta 5 mg daily with close monitoring. Assessment & Plan (02/05/2025 10:24 AM EDT): Glucose 267. A1c 12.7 on 02/02/2025. On metformin prior to arrival. Severe hyperglycemia (922) improved and anion gap resolved with IV insulin protocol. Plan: Titrated glargine to 20, meal coverage lispro to 7 with correction scale. Case management for facility that can accommodate insulin. Endocrinology consult pending to see whether there is a non injectable regimen to facilitate transfer back to facility Addendum [address] Phillips/endocrinology and at the minimum glargine insulin will be required for management of diabetes. Referred back to case management to pursue placement able to manage diabetes with insulin Assessment & Plan (02/04/2025 10:00 AM EDT): Glucose 203. A1c 12.7 on 02/02/2025. On metformin prior to arrival. Severe hyperglycemia (922) improved and anion gap resolved with IV insulin protocol. Plan: Titrate basal bolus correction insulin regimen. Case management for facility that can accommodate insulin. Assessment & Plan (2025 10:03 AM EDT): Hyperglycemia and anion gap resolved with IV insulin protocol. Hemoglobin A1c on 02/02/2025 pending. Pending pharmacy list reports [facility]. Presented to outside hospital with glucose 922. Plan: Convert to subcutaneous regimen. Social History Tobacco Use Types Packs/Day Years Used Date Smoking Tobacco: Never Assessed [facility] Utilities Answer Date Recorded In the past 12 months has [employer], [employer], oil, or water [employer] threatened to shut off services in your home? No 2025 AUDIT-C Answer Date Recorded Q1: How often do you have a drink containing alcohol? Patient unable to answer 02/04/2025 Q2: How many drinks containi ng alcohol do you have on a typical day when you are drinking? Patient unable to answer Q3: How often do you have si x or more drinks on one occasion? Patient unable to answer 02/04/2025 Overall Financial Resource Strain (CARDIA) Answe r Date Recorded How hard is it for you to pa y for the very basics like food, housing, medical care, and heating? Not hard at all 2025 Hunger Vital Sign Answer Date Recorded Within the past 12 months, y ou worried that your food would run out before you got the money to buy more. Never true 02/04/20 25 Within the past 12 months, t he food you bought just didn't last and you didn't have money to get more. Never true 2025 PRAPARE - Transportation Answer Date Re corded In the past 12 months, has l ack of transportation kept you from medical appointments or from getting medications? No 01/16 In the past 12 months, has l ack of transportation kept you from meetings, work, or from getting things needed for daily living? No 2025 Housing Stability Vital Sign Answer Charli e Recorded In the last 12 months, was t here a time when you were not able to pay the mortgage or rent on time? No 2025 In the past 12 months, how m any times have you moved where you were living? 1 2025 At any time in the past 12 m [facility], were you homeless or living in a detention (including now)? No 2025 Comments Unknown Sex and Gender Information Value Date Recorded Sex Assigned at Female 02/02/2025 10:34 PM EDT Legal Sex Female 6:18 PM EDT Gender Identity Female 02/02/2025 10:34 PM EDT Sexual Orientation Choose not to disclose 2024 10:14 AM EDT Last Filed Vital Signs Vital Sign Reading Time Taken Comments Blood Pressure 126/72 02/07/2025 10:54 AM EDT Pulse 62 02/07/2025 10:54 AM EDT Temperature 36.4 C (97.5 F) 02/07/2025 10:54 AM EDT Respiratory Rate 16 02/07/2025 10:54 AM EDT Oxygen Saturation 97% 02/07/2025 10:54 AM EDT Inhaled Oxygen Concentration - - Weight 83 kg (182 lb 15.7 oz) 02/06/2025 6:00 AM EDT Height 162.6 cm (5' 4 ) 02/02/2025 10:20 PM EDT Body Mass Index 31.41 02/02/2025 10:20 PM EDT Plan of Treatment Health Maintenance Due Date Last Done Comments Advance Care Planning 1943 Foot Exam 1953 Lipid Panel 1953 Ophthalmology Exam 1953 DTaP/Tdap/Td Vaccines (1 - Tdap) 1962 Pneumococcal Vaccines 50+ (1 of 2 - PCV) 1962 Zoster (Shingles) Vaccine (1 of 2) 1993 DXA Bone Density (Females,Ages 65 and older) 02/04/2008 RSV Vaccine 50 years and older and Patients (1 - 1-dose 75+ series) 2018 Medical Nutrition Therapy (MNT) 09/18/2024 Diabetic Self-Management Training (DSMT) 02/02/2025 Influenza Vaccine 04/18/2025 Hemoglobin A1C 05/07/2025 02/04/2025, 02/02/2025 COVID-19 Vaccine ( season) 2025 Creatinine with GFR 02/06/2026 02/06/2025, 02/04/2025, 2025, Additional history exists Hepatitis B Vaccines Aged Out No long er eligible based on patient's age to complete this topic Procedures Procedure Name Priority Date/Time Associated Diagnosis Comments BASIC METABOLIC PANEL Routine 02/06/2025 4:23 AM EDT HEMOGLOBIN A1C WITH ESTIMATED AVERAGE GLUCOSE Routine 02/04/2025 4:40 AM EDT from Last 3 Months or Most Recently Relevant to Health Maintenance Results * (ABNORMAL) Basic Metabolic Panel (02/06/2025 4:23 AM EDT) Glucose 240(H) 65 - 99 mg/dL 02/06/2025 5:22 AM EDT [facility] Comment:Fasting: <100 mg/dL, Non-Fasting: <200 mg/dL (ADA 2005) Blood Urea Nitrogen (BUN) 14 8 - 21 mg/dL 02/06/2025 5:22 AM EDT [facility] Creatinine 0.9 0.4 - 1.1 mg/dL 02/06/2025 5:22 AM T [facility] eGFR 64 >59 02/06/2025 5:22 AM T [facility] Comment:CKD-EPI (2020) in mL /min/1.73 sq meters. Sodium 138 136 - 145 mmol/L 02/06/2025 5:22 AM EDT [facility] Potassium 4.1 3.4 - 5.3 mmol/L 02/06/2025 5:22 AM T [facility] Chloride 102 98 - 107 mmol/L 02/06/2025 5:22 AM [facility] CO2 23 22 - 33 mmol/L 02/06/2025 5:22 AM [facility] Anion Gap 13 4 - 16 02/06/2025 5:22 AM [facility] Calcium 8.6(L) 8.7 - 10.5 mg/dL 02/06/2025 5:22 AM [facility] BUN/Creatinine Ratio 16 10.0 - 25.0 Ratio 02/06/2025 5:22 AM [facility] Blood Blood specimen / Unknown 02/06/2025 4:23 AM EDT 02/06/2025 4:52 AM EDT Siva Benjamin MD LAB BLOOD ORDERABLES Carmen l Result [facility] [address] [place] [address], [facility] [address] [place] [address] * (ABNORMAL) Hemoglobin A1c with Estimated Average Glucose (02/04/2025 4:40 AM EDT) Hemoglobin A1C 12.9(H) <5.7 % 02/04/2025 1:21 PM EDT [facility] Comment: A1c% Interpretation 5.7 - 6.0 Increase risk of diabetes 6.1 - 6.4 Higher risk of diabetes > or = 6.5 Consistent with diabetes Diabetes Care, 33(Supp 1):S1-S61, 2010 Estimated Average Glucose 324 mg/dL 02/04/2025 1:21 PM EDT [facility] Blood Blood specimen / Unknown 02/04/2025 4:40 AM EDT 02/04/2025 5:09 AM EDT Siva Benjamin MD LAB BLOOD ORDERABLES Carmen ybarra Result [address] [address], [address] [address] from Last 3 Months or Most Recently Relevant to Health Maintenance Insurance [facility] MEDICARE Advance Directives * DNR (Latest Code Status on File) Date Activated Date Inactivated Comments 02/02/2025 10:45 PM Question Answer Comments Decision thoroughly discussed with: Legally Auth orized Database Administration Project Manager Name of Legally Authorized Database Administration Project Manager: Shea moreno (Daughter) * Full Code Date Activated Date Inactivated Comments 02/02/2025 10:20 PM 02/02/2025 10:45 PM Care Teams Jewel Flat Surfacer Relationship Specialty Start Date End Date System, Provider Not In PCP - General 02/03/25
== END 2025-08-16 09:44 | disposition home or self-care (01) ==
LOC: HO.CT 09:43
PROVIDERS: PCP Internal Medicine; Visit Provider Physician Assistant
DX: R06.2 Wheezing (principal); R05.3 Chronic cough
CPT/HCPCS: 71250

== ENCOUNTER → 2025-08-16 10:03 | Outpatient (BNV) | payer MEDICARE, SELFPAY | PROVIDERS: PCP Internal Medicine; Visit Provider Student in an Organized Health Care Education/Training Program | DX: J98.11 Atelectasis (principal) | CPT/HCPCS: 71250 ==